=== PATIENT | male | born 1945 | race Caucasian/White ===

== ENCOUNTER → 2020-05-20 08:14 | Outpatient (REF) | payer MEDICARE, OTHER, SELFPAY ==
--- NOTE | 2020-05-20 08:30 | CA_ITS ---
Transthoracic Echocardiogram Patient (Last, First, Middle): Rich Camarillo R Gender: Male Date of : 1945 Age: 74 Procedure Date: 05/20/2020 Procedure Type: Transthoracic Echocardiogram Location: OP Height: 177.8 cm Weight: 76.2 kg BSA: 1.94 m2 Heart Rate: bpm BP: 140 / 80 mmHg Gripper Machine Operator: RALEIGH Valdez MD: Govind Palacios MD Cutter Apprentice Hand: Tito Reynolds MD Symptoms: I42.9 CMP I34.0 NON RHEUMATIC MV REGURG I27.20 PULMONARY REG Study Quality: Good ECG Rhythm: Sinus Conclusions: - 1. Severely enlarged right-sided chambers with RV systolic dysfunction 2. Low normal LV systolic function with impaired relaxation filling pattern 3. Mild mitral regurgitation 4. [id number] tricuspid regurgitation with moderately elevated right ventricular systolic pressure 5. Small loculated pericardial effusion near the left ventricle Findings Left Ventricle Normal left ventricular cavity size. There is normal left ventricular wall thickness. The left ventricular systolic function is low normal. The visually estimated ejection fraction is between 50-55%. There is a flattened septum in systole consistent with right ventricular pressure overload. Spectral Doppler is indicative of an impaired relaxation filling pattern. E/E prime ratio is between 8 and 15 consistent with indeterminate filling pressures. Right Ventricle Severely increased right ventricular cavity size. There is moderately decreased right ventricular systolic function. Atria The left atrium is likely dilated. Interatrial shunt cannot be excluded. The right atrium is severely dilated. Aortic Valve There is mild thickening of the aortic valve. There is no aortic valve stenosis. There is no aortic valve regurgitation. Mitral Valve Likely normal mitral valve structure and function. There is mild mitral valve regurgitation. There is no mitral valve stenosis. Pulmonic Valve The pulmonic valve was not well visualized. Tricuspid Valve Likely normal tricuspid valve structure and function. There is mild to moderate tricuspid valve regurgitation. Mildly elevated right atrial pressure. Moderate pulmonary hypertension is present. Great Vessels All visible segments of the aorta are normal in size. The pulmonary artery was not well visualized. Venous The inferior vena cava is mildly dilated and collapses less than 50% with inspiration. Pericardium/Pleural There is a small loculated pericardial effusion overlying the left ventricle. Prior Study Comparison Changes noted compared to prior study dated: 10/16/2019. right-sided chambers of further enlarged Measurements 2D Linear Measurements IVSd: 1.06 0.6-0.9/0.6-1.0 cm LVIDd: 4.27 3.9-5.3/4.2-5.9 cm LVIDd Index: 2.20 2.4-3.2/2.2-3.1 cm/m2 LVIDs: 3.04 2.0-3.6 cm LVPWd: 1.05 0.7-1.1 cm Ao Root: 3.50 2.1-3.5 cm LA Diam: 3.40 2.7-3.8/3.0-4.0 cm LAIDs Index: 1.75 1.5-2.3 cm/m2 LV Mass: 189.11 67-162/88-224 g LV Mass Index: 97.48 43-95/49-115 g/m2 LVOT Diam: 2.30 3.0+(-)1.3 cm 2D Systolic Function EF 4C: 55.70 >55% EF 2C: 51.00 >55% EF BiP: 52.00 >55% Mitral Valve MV Pk E: 0.75 MV PK A: 1.07 MV Decel Time: 395.00 E/A: 0.70 E'Lateral: 3.48 E'Medial: 3.26 E/E' Med: 23.10 E/E' Lat: 21.60 PHT: 116.00 MVA PHT: 1.90 Decel [place]: 1.91 Aortic Valve AoV Pk Abhilash: 1.19 AoV Mn Abhilash: 0.67 AoV VTI: 0.20 AoV Pk Grad: 6.00 Aov Mn Grad: 2.00 DANIELLE Cont.VTI: 3.23 LVOT LVOT Pk Abhilash: 0.63 LVOT Mn Abhilash: 0.37 LVOT VTI: 0.15 LVOT Pk Grad: 2.00 LVOT Mn Grad: 1.00 LVOT Diam: 2.30 LVOT Area: 4.15 Diastolic Function MV Pk E: 0.75 MV Pk A: 1.07 E/A: 0.70 E'Medial: 3.26 E/E' Med: 23.10 E' Laterial: 3.48 E/E' Lat: 21.60 Tricuspid Valve TR Pk Abhilash: 3.53 TR Pk Grad: 50.00 RA Press: 8.00 RVSP: 58.00 Great Vessels Aorta Ao Root-2D: 3.50 2.0-3.7 cm Ao Asc: 3.40 2.1-3.4 cm Ao Arch: 2.80 Updated in Other Vendor System with Status of Final Tito Reynolds MD electronically signed on 05/20/2020 3:15:58 PM with status of Final
== END ==
LOC: HO.CARD 08:14
PROVIDERS: PCP Internal Medicine; Visit Provider Internal Medicine
DX: I42.9 Cardiomyopathy, unspecified (principal); I34.0 Nonrheumatic mitral (valve) insufficiency; I36.1 Nonrheumatic tricuspid (valve) insufficiency; I27.20 Pulmonary hypertension, unspecified
CPT/HCPCS: 93306

== ENCOUNTER → 2020-06-09 09:25 | Outpatient (BNVA) | payer MEDICARE, OTHER, SELFPAY | PROVIDERS: PCP Internal Medicine; Visit Provider Internal Medicine | DX: I42.8 Other cardiomyopathies (principal); I50.812 Chronic right heart failure; I27.20 Pulmonary hypertension, unspecified | CPT/HCPCS: 99212 ==

== ENCOUNTER 2020-06-11 10:28 | Outpatient (REF) | payer MEDICARE, OTHER, SELFPAY ==
[2020-06-11 13:54] LABS: MANUAL DIFF FLAG NO
[2020-06-11 14:08] LABS: Basophils Percent Auto 0.4 % (0-2); Eosinophils Absolute Auto 0.1 X10*3/uL (0.0-0.4); Eosinophils Percent Auto 0.5 % (0-4); Hematocrit 51.7 % (42-52); Hemoglobin 16.8 g/dl (14.0-18.0); Imm Gran Abs Auto 0.06 X10*3/uL (0.00-0.03); Imm Gran Pct Auto 0.6 % (0.0-0.4); Lymphocytes Absolute Auto 2.2 X10*3/uL (1.2-4.9); Lymphocytes Percent Auto 21.7 % (20-40); Mean Corpuscular HGB Conc 32.5 g/dl (31.0-36.0); Mean Corpuscular Hemoglobin 34.6 pg (27.0-33.0); Mean Corpuscular Volume 106.4 fL (80-98); Mean Platelet Volume 10.5 fL (9.4-12.4); Monocytes Absolute Auto 0.8 X10*3/uL (0.1-1.2); Monocytes Percent Auto 7.3 % (2-11); Neutrophils Absolute Auto 7.1 X10*3/uL (2.0-8.3); Neutrophils Percent Auto 69.5 % (45-73); Platelet Count 124 X10*3/uL (160-400); Red Blood Count 4.86 X10*6/uL (4.60-5.80); Red Cell Distribution Width 14.7 % (11.0-16.0); White Blood Count 10.3 X10*3/uL (4.8-10.8)
[2020-06-11 14:37] LABS: Alanine Aminotransferase 24 U/L (0-40); Albumin Level 3.8 g/dL (3.5-5.0); Alkaline Phosphatase 93 U/L (39-117); Anion Gap 14 (12-20); Aspartate Amino Transferase 27 U/L (5-37); Bilirubin Total 1.6 mg/dL (0.0-1.0); Blood Urea Nitrogen 25 mg/dL (9-16); Calcium 8.5 mg/dL (8.4-10.2); Carbon Dioxide 27 mmol/L (22-29); Chloride 105 mmol/L (96-108); Estimated Glomerular Filt Rate > 60; Glucose Random 61 mg/dL (60-115); Potassium 4.2 mmol/l (3.3-5.1); Sodium 142 mmol/L (135-145); Total Protein 6.7 g/dL (6.5-8.0)
== END 2020-06-11 10:29 | disposition home or self-care (01) ==
LOC: HO.10HDL 10:28
PROVIDERS: Visit Provider Internal Medicine
DX: J44.9 Chronic obstructive pulmonary disease, unspecified (principal); I10 Essential (primary) hypertension; R60.9 Edema, unspecified
CPT/HCPCS: 36415; 80053; 85025

== ENCOUNTER 2020-07-10 09:41 | Outpatient (REF) | payer MEDICARE, OTHER, SELFPAY | END 2020-07-10 09:42 | disposition home or self-care (01) | LOC: HO.LNP 09:41 | PROVIDERS: PCP Internal Medicine; Visit Provider Hospitalist | DX: J44.9 Chronic obstructive pulmonary disease, unspecified (principal); J84.10 Pulmonary fibrosis, unspecified; J96.11 Chronic respiratory failure with hypoxia; I27.20 Pulmonary hypertension, unspecified; Z79.51 Long term (current) use of inhaled steroids; Z87.891 Personal history of nicotine dependence | CPT/HCPCS: 87070; 87205; 99212 ==

== ENCOUNTER 2020-07-20 09:07 | Outpatient (REF) | payer MEDICARE, OTHER, SELFPAY ==
--- NOTE | ~2020-07-20 | CT_ITS ---
EXAMINATION: CT CHEST WITHOUT CONTRAST CLINICAL INFORMATION: Pulmonary fibrosis COMPARISON: CT from 08/21/2018. Chest radiograph 01/30/2020. TECHNIQUE: Multidetector volumetric CT imaging of the chest was done. Axial MIP volume rendering provided. Sagittal and coronal reformatted images were obtained. This CT examination was performed using dose optimization techniques as appropriate, variously including the following: *Automated exposure control *Adjustment of mA and/or kV according to patient size (this includes techniques or standardized protocols for targeted exams where dose is matched to indication/reason for exam; i.e. extremities or head) *Use of iterative reconstruction technique DLP: 161 mGy-cm FINDINGS: INSPECTOR HANDBAG FRAMES: Prominent interstitial markings are noted throughout the lungs. LUNGS: The central airways are patent. There is moderate to severe centrilobular and paraseptal emphysema, greatest in the upper lobes. This is similar to prior. Bullous changes in the superior segments of bilateral lower lobes. There is mild bronchial wall thickening. No significant bronchiectasis. Honeycombing noted bilaterally, greatest at the lower lobes posteriorly. Subpleural reticulation is unchanged. No consolidation. There is a right upper lobe nodule measuring 0.8 x 0.4 cm on series 9 image 239. This is without change from prior. No mass. No pneumothorax. MEDIASTINUM: Enlarged heart. Mitral annular calcifications. Scattered coronary artery calcifications. No pericardial effusion. Mildly prominent mediastinal lymph nodes have normal morphology. There is a pretracheal node with short axis measurement of 1.3 cm on series 5 image 23, likely similar to prior given slight differences in technique. PLEURA: No pleural effusion. No pleural-based mass. AXILLA: No lymphadenopathy. UPPER ABDOMEN: Unremarkable. OSSEOUS STRUCTURES: No acute or suspicious osseous abnormality. Multilevel degenerative changes of the spine. L1 vertebral body compression deformity is unchanged from prior. CT/CT chest wo con IMPRESSION: No significant change from previous imaging. 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 Moderate to severe emphysema. Prominent pretracheal mediastinal lymph node, nonspecific but without significant change from prior. Unchanged pulmonary nodule in the right upper lobe with a mean dimension of 0.6 cm. Based on the Fleischner Society recommendations below, this does demonstrate 2 years of stability. This suggests benign etiology. According to the UPDATED 2017 Fleischner Society recommendations, the advised follow-up imaging for a single 6-8 mm solid nodule is: LOW RISK PATIENT: CT at 6-12 months, then consider CT at 18-24 months. HIGH RISK PATIENT: CT at 6-12 months, then at 18-24 months.
== END 2020-07-20 09:08 | disposition home or self-care (01) ==
LOC: HO.CT 09:07
PROVIDERS: Visit Provider Hospitalist
DX: J84.10 Pulmonary fibrosis, unspecified (principal); J96.11 Chronic respiratory failure with hypoxia; R63.4 Abnormal weight loss
CPT/HCPCS: 71250

== ENCOUNTER → 2020-08-07 10:28 | Outpatient (BNVA) | payer MEDICARE, OTHER, SELFPAY | PROVIDERS: PCP Internal Medicine; Visit Provider Hospitalist | DX: J41.8 Mixed simple and mucopurulent chronic bronchitis (principal); J84.10 Pulmonary fibrosis, unspecified; J96.11 Chronic respiratory failure with hypoxia; R63.4 Abnormal weight loss; J45.909 Unspecified asthma, uncomplicated; I27.20 Pulmonary hypertension, unspecified; I50.812 Chronic right heart failure; Z79.899 Other long term (current) drug therapy | CPT/HCPCS: 99212 ==

== ENCOUNTER 2020-10-08 10:32 | Outpatient (REF) | payer MEDICARE, OTHER, SELFPAY ==
[2020-10-08 11:40] LABS: MANUAL DIFF FLAG NO
[2020-10-08 11:51] LABS: Basophils Percent Auto 0.4 % (0-2); Eosinophils Absolute Auto 0.1 X10*3/uL (0.0-0.4); Eosinophils Percent Auto 0.6 % (0-4); Hematocrit 50.3 % (42-52); Hemoglobin 16.3 g/dl (14.0-18.0); Imm Gran Abs Auto 0.04 X10*3/uL (0.00-0.03); Imm Gran Pct Auto 0.5 % (0.0-0.4); Lymphocytes Percent Auto 24.4 % (20-40); Mean Corpuscular HGB Conc 32.4 g/dl (31.0-36.0); Mean Corpuscular Hemoglobin 34.6 pg (27.0-33.0); Mean Corpuscular Volume 106.8 fL (80-98); Mean Platelet Volume 10.1 fL (9.4-12.4); Monocytes Absolute Auto 0.5 X10*3/uL (0.1-1.2); Monocytes Percent Auto 6.5 % (2-11); Neutrophils Absolute Auto 5.6 X10*3/uL (2.0-8.3); Neutrophils Percent Auto 67.6 % (45-73); Platelet Count 150 X10*3/uL (160-400); Red Blood Count 4.71 X10*6/uL (4.60-5.80); Red Cell Distribution Width 14.4 % (11.0-16.0); White Blood Count 8.3 X10*3/uL (4.8-10.8)
[2020-10-08 12:09] LABS: Troponin-I High Sensitivity 13.3 ng/L (<3.5-35.0)
[2020-10-08 12:11] LABS: Alanine Aminotransferase 19 U/L (0-40); Albumin Level 4.1 g/dL (3.5-5.0); Alkaline Phosphatase 118 U/L (39-117); Anion Gap 15 (12-20); Aspartate Amino Transferase 25 U/L (5-37); Bilirubin Total 1.6 mg/dL (0.0-1.0); Blood Urea Nitrogen 23 mg/dL (9-16); Calcium 9.2 mg/dL (8.4-10.2); Carbon Dioxide 27 mmol/L (22-29); Chloride 103 mmol/L (96-108); Estimated Glomerular Filt Rate 58; Glucose Random 80 mg/dL (60-115); Potassium 4.1 mmol/L (3.3-5.1); Sodium 141 mmol/L (135-145); Total Protein 7.2 g/dL (6.5-8.0)
== END 2020-10-08 10:33 | disposition home or self-care (01) ==
LOC: HO.LAB 10:32
PROVIDERS: PCP Internal Medicine; Visit Provider Internal Medicine
DX: R00.2 Palpitations (principal); I10 Essential (primary) hypertension; J44.9 Chronic obstructive pulmonary disease, unspecified; D72.829 Elevated white blood cell count, unspecified
CPT/HCPCS: 36415; 80053; 84484; 85025

== ENCOUNTER → 2020-11-19 10:10 | Outpatient (BNVA) | payer MEDICARE, OTHER, SELFPAY | PROVIDERS: PCP Internal Medicine; Visit Provider Hospitalist | DX: J84.10 Pulmonary fibrosis, unspecified (principal); J96.11 Chronic respiratory failure with hypoxia; J41.8 Mixed simple and mucopurulent chronic bronchitis; I27.20 Pulmonary hypertension, unspecified; M79.89 Other specified soft tissue disorders | CPT/HCPCS: 99212 ==

== ENCOUNTER → 2020-11-23 08:10 | Outpatient (REF) | payer MEDICARE, OTHER, SELFPAY ==
--- NOTE | 2020-11-23 08:14 | CA_ITS ---
Transthoracic Echocardiogram Patient (Last, First, Middle): Rich Camarillo R Gender: Male Date of : 1945 Age: 74 Procedure Date: 11/23/2020 Procedure Type: Transthoracic Echocardiogram Location: OP Height: 177.8 cm Weight: 74.84 kg BSA: 1.92 m2 Heart Rate: bpm BP: 122 / 70 mmHg Humanities Instructor: RALEIGH Referring MD: Govind Palacios MD Symptoms: I50.812 - Chronic right heart failure Study Quality: Good ECG Rhythm: Sinus Conclusions: - The left ventricular systolic function is normal. The visually estimated ejection fraction is between 55-60%. - Severely increased right ventricular cavity size. There is moderately decreased right ventricular systolic function. - There is mild to moderate mitral valve regurgitation. - There is moderate tricuspid valve regurgitation. - Severe pulmonary hypertension is present. - Small localized effusion posterior to the left ventricle. Findings Left Ventricle Normal left ventricular cavity size. There is normal left ventricular wall thickness. The left ventricular systolic function is normal. The visually estimated ejection fraction is between 55-60%. There is no evidence of regional wall motion abnormalities. There is a flattened septum in systole consistent with right ventricular pressure overload. E/E prime ratio is >15, consistent with elevated filling pressures. Evidence suggests grade I (mild) diastolic dysfunction. Right Ventricle Severely increased right ventricular cavity size. There is moderately decreased right ventricular systolic function. Atria The left atrium is mildly dilated. The right atrium is severely dilated. Aortic Valve There is a normal trileaflet aortic valve. There is no aortic valve stenosis. There is trace (trivial) aortic valve regurgitation. Mitral Valve There is moderate posterior mitral annular calcification. There is mild posterior mitral leaflet prolapse. There is mild to moderate mitral valve regurgitation. There is no mitral valve stenosis. Pulmonic Valve The pulmonic valve was not well visualized. There is trace pulmonic valve regurgitation. Tricuspid Valve There is moderate tricuspid valve regurgitation. The right ventricular systolic pressure is 72 mmHg. Severe pulmonary hypertension is present. Great Vessels The aortic annulus, sinuses of valsalva, and asc aorta are normal in size. Venous The inferior vena cava is dilated and collapses less than 50% with inspiration. Pericardium/Pleural There are no definitive echocardiographic findings of tamponade physiology. Small localized effusion posterior to the left ventricle. Prior Study Comparison Changes noted compared to prior study dated: 05/20/2020. RVSP higher. Measurements 2D Linear Measurements IVSd: 1.02 0.6-0.9/0.6-1.0 cm LVIDd: 4.60 3.9-5.3/4.2-5.9 cm LVIDd Index: 2.40 2.4-3.2/2.2-3.1 cm/m2 LVIDs: 3.38 2.0-3.6 cm LVPWd: 1.06 0.7-1.1 cm Ao Root: 3.50 2.1-3.5 cm LA Diam: 4.00 2.7-3.8/3.0-4.0 cm LAIDs Index: 2.08 1.5-2.3 cm/m2 LV Mass: 208.77 67-162/88-224 g LV Mass Index: 108.74 43-95/49-115 g/m2 LVOT Diam: 2.00 3.0+(-)1.3 cm 2D Systolic Function EF 4C: 62.10 >55% EF 2C: 52.60 >55% EF BiP: 56.50 >55% Mitral Valve MV Pk E: 0.89 MV PK A: 1.06 MV Decel Time: 288.00 E/A: 0.80 E'Lateral: 4.35 E'Medial: 4.13 E/E' Med: 21.60 E/E' Lat: 20.60 PHT: 84.00 MVA PHT: 2.62 Decel [place]: 3.11 Aortic Valve AoV Pk Abhilash: 1.14 AoV Mn Abhilash: 0.74 AoV VTI: 0.21 AoV Pk Grad: 5.00 Aov Mn Grad: 3.00 DANIELLE Cont.VTI: 2.30 LVOT LVOT Pk Abhilash: 0.76 LVOT Mn Abhilash: 0.45 LVOT VTI: 0.16 LVOT Pk Grad: 2.00 LVOT Mn Grad: 1.00 LVOT Diam: 2.00 LVOT Area: 3.14 Diastolic Function MV Pk E: 0.89 MV Pk A: 1.06 E/A: 0.80 E'Medial: 4.13 E/E' Med: 21.60 E' Laterial: 4.35 E/E' Lat: 20.60 Tricuspid Valve TR Pk Abhilash: 3.76 TR Pk Grad: 57.00 RA Press: 15.00 RVSP: 72.00 Great Vessels Aorta Ao Root-2D: 3.50 2.0-3.7 cm Ao Asc: 3.10 2.1-3.4 cm Ao Arch: 2.80 Updated in Other Vendor System with Status of Final Govind Palacios MD electronically signed on 11/23/2020 11:18:49 AM with status of Final
== END ==
LOC: HO.CARD 08:10
PROVIDERS: PCP Internal Medicine; Visit Provider Internal Medicine
DX: I50.812 Chronic right heart failure (principal)
CPT/HCPCS: 93306

== ENCOUNTER → 2020-12-14 08:58 | Outpatient (BNVA) | payer MEDICARE, OTHER, SELFPAY | PROVIDERS: PCP Internal Medicine; Referring Provider Internal Medicine; Visit Provider Internal Medicine | DX: I42.8 Other cardiomyopathies (principal); J96.10 Chronic respiratory failure, unspecified whether with hypoxia or hypercapnia; I50.812 Chronic right heart failure; I27.20 Pulmonary hypertension, unspecified; J84.10 Pulmonary fibrosis, unspecified; F17.210 Nicotine dependence, cigarettes, uncomplicated; Z79.899 Other long term (current) drug therapy | CPT/HCPCS: 93005; 99212 ==

== ENCOUNTER 2021-03-29 11:48 | Inpatient (IN) | payer OTHER, SELFPAY ==
[2021-03-29] VITALS (7 sets, daily range): BP systolic 116–138; BP diastolic 77–82; PULSE 83–94; RESP 12–24; TEMP 36.7–36.8; O2SAT 76–93; BMI 25.2
--- NOTE | ~2021-03-29 | XR_ITS ---
EXAMINATION: XR CHEST CLINICAL INFORMATION: Dyspnea COMPARISON: Previous chest x-ray most recent January [address] July 2020 TECHNIQUE: Frontal view of the chest was obtained. FINDINGS: The cardiac silhouette is enlarged but stable. Hilar and mediastinal contours are unremarkable. There are increased interstitial markings. This does not appear appreciably changed from previous exams and is suggestive of interstitial lung disease. The lungs are otherwise clear. There is no pleural effusion or pneumothorax. There are degenerative changes of the spine. XR/XR chest 1V IMPRESSION: No evidence for acute disease in the chest. Stable enlargement of the cardiac silhouette. Stable increased interstitial markings suggestive of interstitial lung disease.
--- NOTE | 2021-03-29 12:28 | ECG_ITS ---
Test Reason : DYSPNEA Blood Pressure : / mmHG Vent. Rate : 078 BPM Atrial Rate : 078 BPM P-R Int : 176 ms QRS Dur : 126 ms QT Int : 424 ms P-R-T Axes : 039 000 -37 degrees QTc Int : 483 ms Normal sinus rhythm with sinus arrhythmia Incomplete right bundle branch block ST depression in Anterolateral leads Nonspecific T wave abnormality Inferior leads Abnormal ECG When compared with ECG of 15-OCT-2019 15:40, Aberrant conduction is no longer Present QRS duration has increased ST more depressed Anterolateral leads Referred By: Jose Alvarado Electronically Signed By:CAROLINA ELI MD
--- NOTE | 2021-03-29 12:30 | ED.SOB ---
HPI - SOB/Dyspnea General Chief Complaint: Dyspnea Stated Complaint: right sided heart failure , hypoximia Time Seen by Provider: 03/29/21 12:28 Source: patient Mode of arrival: ambulatory Limitations: no limitations History of Present Illness HPI Narrative: This is a 75 years old male brought in by the primary care physician he goes he was found to be hypoxic in the office a with oxygen saturation of 76% room air. Patient has a history of chronic heart failure with nonischemic cardiomyopathy and pulmonary hypertension he has been noticing increasing edema in the lower extremity, denies any chest pain MD elicited complaint: shortness of breath Pertinent past history: congestive heart failure Onset (ago): day(s) (2) Timing: constant Severity: moderate Exacerbating factors: nothing Relieving factors: nothing Known history of: other (CHF) Related Data Home Medications Medication Instructions Recorded Confirmed aspirin 81 mg tablet,delayed 81 mg PO DAILY 06/09/20 12/14/20 release (Adult Low Dose Aspirin) Previous Rx's Medication Instructions Recorded fluticasone furoate 200 1 inh INHALATION DAILY 30 Days #60 07/10/20 mcg-vilanterol 25 mcg/dose ea inhalation powder (Breo Ellipta) carvedilol 3.125 mg tablet 3.125 mg PO BID #180 tab 12/14/20 furosemide 40 mg tablet 40 mg PO DAILY #90 tab 12/14/20 albuterol sulfate 90 mcg/actuation 2 puff INHALATION Q4H PRN #8.5 g 03/29/21 aerosol inhaler Allergies Allergy/AdvReac Type Severity Reaction Status Date / Time No Known Allergies Allergy Verified 03/29/21 11:51 [No Known Allergies*] Review of Systems Review of Systems: Yes all other systems are reviewed and are negative Constitutional: Constitutional: Reports no additional constitutional complaints ENT: Reports system reviewed and no additional complaints, except as documented Cardiovascular: Cardiovascular: Reports no additional cardiovascular complaints Gastrointestinal: Gastrointestinal: Denies diarrhea and Denies nausea Genitourinary: Genitourinary: Denies urinary frequency Neurologic: Reports system reviewed and no additional complaints, except as documented Endocrine: Endocrine: Reports no additional endocrine complaints [facility] Past Medical History Attestation statement: The following information was validated with the patient. Medical History Chronic respiratory failure Chronic right heart failure COPD (chronic obstructive pulmonary disease) Emphysema lung Limb swelling NICM (nonischemic cardiomyopathy) Pulmonary fibrosis Pulmonary hypertension Surgical History History of inguinal hernia repair Family History Family History Father Cancer Mother Cancer Social History Social History Patient Tobacco Use Status: Former Tobacco user Cigarette Packs Per Day: 1 Cigarettes Per Day: 7 Years Smoked: 20 years Use of substances other than those prescribed or required for medical reasons: No Advance Directives: Yes Advance Directives Information Provided: No Advance Directives on File: No Physical Exam Vital Signs: Vital Signs: Last Vital Signs Temp 98.2 F 03/29/21 11:51 Pulse 86 03/29/21 12:25 Resp 12 03/29/21 12:25 BP 118/82 03/29/21 12:25 Pulse Ox 93 03/29/21 12:25 Body Mass Index 25.2 Const: General: cooperative and alert Nutritional Appearance: well nourished Orientation/consciousness: patient oriented x3 HENMT: Head: Yes normal to inspection Face and sinus: Yes normal facial exam Mouth: Normal oral and palatal mucosa present Neck: Neck: Yes normal visual inspection and Yes full ROM Chest: Chest palpation & inspection: normal inspection of the chest Resp: Effort & Inspection: normal respiratory effort Auscultation: rhonchi Cardio: Jugular venous distension: no JVD Rate: regular rate Rhythm: regular rhythm GI: Inspection: Yes normal to inspection Palpation (GI): Soft to palpation, not firm, nontender and no guarding Neuro: General: patient oriented x3 Extrem: Other: 3 plus edema MDM - SOB/Dyspnea Lab Data Result diagrams: 03/29/21 12:54 03/29/21 12:54 Labs: Lab Results 03/29/21 03/29/21 03/29/21 Range/Units 12:54 12:54 12:54 WBC 6.3 (4.8-10.8) X10*3/uL RBC 4.81 (4.60-5.80) X10*6/uL Hgb 17.4 (14.0-18.0) g/dl Hct 52.6 H (42.0-52.0) % MCV 109.4 H (80.0-98.0) fL MCH 36.2 H (27.0-33.0) pg MCHC 33.1 (31.0-36.0) g/dl RDW 17.1 H (11.0-16.0) % Plt Count 125 L (160-400) X10*3/uL MPV 9.9 (9.4-12.4) fL Immature Gran % (Auto) 0.3 (0.0-0.4) % Neut % (Auto) 72.3 (45-73) % Lymph % (Auto) 19.3 L (20-40) % Evangeline % (Auto) 7.3 (2-11) % Eos % (Auto) 0.5 (0-4) % Baso % (Auto) 0.3 (0-2) % Lymph # (Auto) 1.2 (1.2-4.9) X10*3/uL [place]eline # (Auto) 0.5 (0.1-1.2) X10*3/uL Eos # (Auto) 0.0 (0.0-0.4) X10*3/uL Baso # (Auto) 0.0 (0.0-0.2) X10*3/uL Abs Immat Gran (auto) 0.02 (0.00-0.03) X10*3/uL Absolute Neuts (auto) 4.5 (2.0-8.3) x10*3/uL Absolute Nucleated RBC 0.000 (0.0-0.012) X10*3/uL Nucleated RBC % (auto) 0.0 (0.0-0.2) /100WBC Sodium 142 (135-145) mmol/L Potassium 3.8 (3.3-5.1) mmol/L Chloride 104 (96-108) mmol/L Carbon Dioxide 24 (22-29) mmol/L Anion Gap 18 (12-20) BUN 24 H (9-16) mg/dL Creatinine 1.20 (0.5-1.4) mg/dL Estim Creat Clear Calc 56.6 Estimated GFR 59 Random Glucose 86 (60-115) mg/dL Calcium 8.8 (8.4-10.2) mg/dL Total Bilirubin 4.2 H (0.0-1.0) mg/dL AST 27 (5-37) U/L ALT 19 (0-40) U/L Alkaline Phosphatase 137 H (39-117) U/L Troponin I High Sens 11.3 (<3.5-35.0) ng/L B-Natriuretic Peptide (<100) pg/mL Total Protein 7.0 (6.5-8.0) g/dL Albumin 3.8 (3.5-5.0) g/dL COVID-19 (HILARY) (Negative) COVID-19 Clin Com 03/29/21 03/29/21 Range/Units 12:54 15:02 WBC (4.8-10.8) X10*3/uL RBC (4.60-5.80) X10*6/uL Hgb (14.0-18.0) g/dl Hct (42.0-52.0) % MCV (80.0-98.0) fL MCH (27.0-33.0) pg MCHC (31.0-36.0) g/dl RDW (11.0-16.0) % Plt Count (160-400) X10*3/uL MPV (9.4-12.4) fL Immature Gran % (Auto) (0.0-0.4) % Neut % (Auto) (45-73) % Lymph % (Auto) (20-40) % Ev[place]eline % (Auto) (2-11) % Eos % (Auto) (0-4) % Baso % (Auto) (0-2) % Lymph # (Auto) (1.2-4.9) X10*3/uL [place]eline # (Auto) (0.1-1.2) X10*3/uL Eos # (Auto) (0.0-0.4) X10*3/uL Baso # (Auto) (0.0-0.2) X10*3/uL Abs Immat Gran (auto) (0.00-0.03) X10*3/uL Absolute Neuts (auto) (2.0-8.3) x10*3/uL Absolute Nucleated RBC (0.0-0.012) X10*3/uL Nucleated RBC % (auto) (0.0-0.2) /100WBC Sodium (135-145) mmol/L Potassium (3.3-5.1) mmol/L Chloride (96-108) mmol/L Carbon Dioxide (22-29) mmol/L Anion Gap (12-20) BUN (9-16) mg/dL Creatinine (0.5-1.4) mg/dL Estim Creat Clear Calc Estimated GFR Random Glucose (60-115) mg/dL Calcium (8.4-10.2) mg/dL Total Bilirubin (0.0-1.0) mg/dL AST (5-37) U/L ALT (0-40) U/L Alkaline Phosphatase (39-117) U/L Troponin I High Sens (<3.5-35.0) ng/L B-Natriuretic Peptide 2396 H (<100) pg/mL Total Protein (6.5-8.0) g/dL Albumin (3.5-5.0) g/dL COVID-19 (HILARY) Negative (Negative) COVID-19 Clin Com See Note ECG Data Attestation: I personally reviewed and interpreted this ECG as follows: Prior ECG tracings: available for review Pacemaker model: NSR 78 no ischemic changes Discharge Plan Discharge Clinical Impression: MOORE (dyspnea on exertion), Edema leg Patient Disposition: Admitted As Inpatient
--- NOTE | 2021-03-29 12:45 | PC.NURSE ---
pt c/o both increased sob and BLE swelling for a few days now. he has history of COPD and CHF, pt is a smoker, he reports he has cut down in an attempt to quit. he reports he was at his PCP's office to be evaluated for the sob and swelling and his physician told him to come to the ed for further evaluation. pt states he wears 4L N/C at home but he has been doing well without his oxygen for a while then recently he noticed he has been needing it more often. He also states his O2 sat was in the 80s at home. pt currently satting 90-94% on 4L N/C. pt states he is on Lasix and has been compliant with taking med, he did take his dose this morning. pt alert and oriented. no respiratory distress noted. pt' at bedside.
[2021-03-29 13:00] LABS: MANUAL DIFF FLAG NO
[2021-03-29 13:02] LABS: Basophils Percent Auto 0.3 % (0-2); Eosinophils Percent Auto 0.5 % (0-4); Hematocrit 52.6 % (42.0-52.0); Hemoglobin 17.4 g/dl (14.0-18.0); Imm Gran Abs Auto 0.02 X10*3/uL (0.00-0.03); Imm Gran Pct Auto 0.3 % (0.0-0.4); Lymphocytes Absolute Auto 1.2 X10*3/uL (1.2-4.9); Lymphocytes Percent Auto 19.3 % (20-40); Mean Corpuscular HGB Conc 33.1 g/dl (31.0-36.0); Mean Corpuscular Hemoglobin 36.2 pg (27.0-33.0); Mean Corpuscular Volume 109.4 fL (80.0-98.0); Mean Platelet Volume 9.9 fL (9.4-12.4); Monocytes Absolute Auto 0.5 X10*3/uL (0.1-1.2); Monocytes Percent Auto 7.3 % (2-11); Neutrophils Absolute Auto 4.5 x10*3/uL (2.0-8.3); Neutrophils Percent Auto 72.3 % (45-73); Platelet Count 125 X10*3/uL (160-400); Red Blood Count 4.81 X10*6/uL (4.60-5.80); Red Cell Distribution Width 17.1 % (11.0-16.0); White Blood Count 6.3 X10*3/uL (4.8-10.8)
[2021-03-29 13:21] LABS: Alanine Aminotransferase 19 U/L (0-40); Albumin Level 3.8 g/dL (3.5-5.0); Alkaline Phosphatase 137 U/L (39-117); Anion Gap 18 (12-20); Aspartate Amino Transferase 27 U/L (5-37); Bilirubin Total 4.2 mg/dL (0.0-1.0); Blood Urea Nitrogen 24 mg/dL (9-16); Calcium 8.8 mg/dL (8.4-10.2); Carbon Dioxide 24 mmol/L (22-29); Chloride 104 mmol/L (96-108); Creatinine Clr Calc Pharmacy 56.6; Estimated Glomerular Filt Rate 59; Glucose Random 86 mg/dL (60-115); Potassium 3.8 mmol/L (3.3-5.1); Sodium 142 mmol/L (135-145)
[2021-03-29 13:26] LABS: B Type Natriuretic Peptide 2396 pg/mL (<100); Troponin-I High Sensitivity 11.3 ng/L (<3.5-35.0)
[2021-03-29] MEDS: Furosemide 100 MG/10 ML VIAL 60 MG IVPUSH (14:41)
--- NOTE | 2021-03-29 15:13 | PM.IMHP ---
History of Present Illness Date of Service: 03/29/21 75yo M with R-sided CHF/pulmonary HTN from COPD and pulmonary fibrosis sent in by his primary care doctor with RA SaO2 76%. He's noted worsening dyspnea and lower extremity edema over the last few days. He's had some cough. No fever or chills. No chest pain. He's been fully vaccinated against COVID-19 with the Moderna vaccine. He's on 40 mg of furosemide a day. He has home oxygen but uses it only rarely. He last saw his human resources specialist, Dr Palacios, on 12/14/20. Last TTE 11/23/20 showed: - The left ventricular systolic function is normal.? The visually estimated ejection fraction is between 55-60%. ? - Severely increased right ventricular cavity size.? There is? ? moderately decreased right ventricular systolic function.? - There is mild to moderate mitral valve regurgitation.? - There is moderate tricuspid valve regurgitation. ? - Severe pulmonary hypertension is present.? - Small localized effusion posterior to the left ventricle.? He [place] Vicente [place] [facility]; last time was 11/19/20. In the ED, he was hypoxic with RA SaO2 76%. BNP was elevated to 2396. CXR showed interstitial markings. He was given 60 mg of IV furosemide. Review of Systems Review of Systems: Yes all other systems are reviewed and are negative [facility] Medical History Chronic respiratory failure Chronic right heart failure COPD (chronic obstructive pulmonary disease) Emphysema lung Limb swelling NICM (nonischemic cardiomyopathy) Pulmonary fibrosis Pulmonary hypertension Family History Father Cancer Mother Cancer Surgical History History of inguinal hernia repair Social History Patient Tobacco Use Status: Former Tobacco user Cigarette Packs Per Day: 1 Cigarettes Per Day: 7 Years Smoked: 20 years Use of substances other than those prescribed or required for medical reasons: No Advance Directives: Yes Advance Directives Information Provided: No Advance Directives on File: No Meds Allergies Allergy/AdvReac Type Severity Reaction Status Date / Time No Known Allergies Allergy Verified 03/29/21 11:51 [No Known Allergies*] Active Medications: Current Medications Pharmacy Consult (Consult Rx Perform Med Rec) 1 each MISCELLANE ONCE PRN PRN Reason: Consult order Home Medications Medication Instructions Recorded Confirmed Last Taken Type aspirin 81 mg tablet,delayed 81 mg PO DAILY 06/09/20 12/14/20 Unknown History release (Adult Low Dose Aspirin) Physical Exam Vital Signs and Narrative: Vital Signs: Last Vital Signs Temp 98.2 F 03/29/21 11:51 Pulse 86 03/29/21 12:25 Resp 12 03/29/21 12:25 BP 118/82 03/29/21 12:25 Pulse Ox 93 03/29/21 12:25 Body Mass Index 25.2 Gen: in no acute distress HEENT: sclera anicteric, moist mucus membranes Neck: supple, JVD present Lungs: diminihsed bilaterally with some wheezing Heart: regular rate and rhythm, no murmurs Abd: soft, non-tender, non-distended Ext: 2+ bilateral leg edema Skin: warm/well-perfused Neuro: alert and oriented x3, no focal findings Psych: appropriate affect Results Labs CBC and Chem 7: 03/29/21 12:54 03/29/21 12:54 Labs: Laboratory Results - last 24 hr 03/29/21 03/29/21 03/29/21 12:54 12:54 12:54 MCV 109.4 H MCH 36.2 H MCHC 33.1 RDW 17.1 H Plt Count 125 L MPV 9.9 Immature Gran % (Auto) 0.3 Neut % (Auto) 72.3 Lymph % (Auto) 19.3 L Monroe % (Auto) 7.3 Eos % (Auto) 0.5 Baso % (Auto) 0.3 Lymph # (Auto) 1.2 Monroe # (Auto) 0.5 Eos # (Auto) 0.0 Baso # (Auto) 0.0 Abs Immat Gran (auto) 0.02 Absolute Neuts (auto) 4.5 Absolute Nucleated RBC 0.000 Nucleated RBC % (auto) 0.0 Anion Gap 18 Estim Creat Clear Calc 56.6 Estimated GFR 59 Random Glucose 86 Calcium 8.8 Total Bilirubin 4.2 H AST 27 ALT 19 Alkaline Phosphatase 137 H Troponin I High Sens 11.3 B-Natriuretic Peptide Total Protein 7.0 Albumin 3.8 03/29/21 12:54 MCV MCH MCHC RDW Plt Count MPV Immature Gran % (Auto) Neut % (Auto) Lymph % (Auto) Monroe % (Auto) Eos % (Auto) Baso % (Auto) Lymph # (Auto) Monroe # (Auto) Eos # (Auto) Baso # (Auto) Abs Immat Gran (auto) Absolute Neuts (auto) Absolute Nucleated RBC Nucleated RBC % (auto) Anion Gap Estim Creat Clear Calc Estimated GFR Random Glucose Calcium Total Bilirubin AST ALT Alkaline Phosphatase Troponin I High Sens B-Natriuretic Peptide 2396 H Total Protein Albumin ITS Impressions Chest X-Ray 03/29/21 12:28 IMPRESSION: No evidence for acute disease in the chest. Stable enlargement of the cardiac silhouette. Stable increased interstitial markings suggestive of interstitial lung disease. Imaging Radiologist's Impressions: Impressions Chest X-Ray 03/29/21 12:28 IMPRESSION: No evidence for acute disease in the chest. Stable enlargement of the cardiac silhouette. Stable increased interstitial markings suggestive of interstitial lung disease. Assessment and Plan (1) Acute on chronic right-sided heart failure: Status: Acute 75yo M with R-sided CHF/pHTN secondary to COPD and pulmonary fibrosis presenting with hypoxia from CHF exacerbation # R-sided CHF exacerbation - admit to telemetry, diurese with IV furosemide, trend BNP + monitor I/O, BMP, Mg - Cardiology consultation - continue carvedilol # acute/chronic hypoxic respiratory failure - supplemental O2, wean as tolerated # COPD exacerbation - will give IV steroids - continue Breo, nebulized SAIMA/SHAN - Pulmonology consult # VTE ppx - LMWH # code - FULL Quality Stroke Does the patient have a stroke diagnosis?: No VTE Prior VTE?: No VTE Risk Level:: Medical - moderate - high VTE Device Contraindication: N/A - Device Ordered VTE Drug Contraindication: N/A - Med Ordered
[2021-03-29 15:34] LABS: COVID-19 Test Negative (Negative)
--- NOTE | 2021-03-29 16:30 | PHA.MEDREC ---
Pharmacy Consult ? Medication Reconciliation Pharmacy has completed the medication reconciliation. Patient used to be on Breo but hasn't been taking it. Last filled in jun
[2021-03-29] MEDS: methylPREDNISolone Sod Succ 40 MG/ML VIAL IVPUSH (16:55)
[2021-03-29] MEDS: Furosemide 40 MG/4 ML VIAL IVPUSH (16:55)
[2021-03-29] MEDS: Enoxaparin Sodium 40 MG/0.4 ML SYRINGE SUBCUT (16:59)
[2021-03-29] MEDS: 0.9 % Sodium Chloride Flush 3 ML SYRINGE IVFLUSH (17:00)
[2021-03-29 17:09] LABS: ABG HCO3 24 mmol/L (22-26); ABG pCO2 31 mmHg (32-45); ABG pH 7.49 (7.35-7.45); ABG pO2 55 mmHg (83-108)
[2021-03-29 17:10] LABS: ABG Refer to POC result
[2021-03-29] MEDS: Albuterol/Iprat 2.5/0.5MG 3 ML AMPUL.NEB INHALE (19:46)
--- NOTE | 2021-03-29 19:50 | PC.NURSE ---
pt a&o, no increase of sob or chest pain. pt sitting upright in bed talking in full sentences. respiratiory into give breathing treatment awaiting bed assignment.
--- NOTE | 2021-03-29 19:51 | PC.NURSE ---
pt has 2000 urine output.
[2021-03-30] VITALS (9 sets, daily range): BP systolic 100–124; BP diastolic 57–85; PULSE 67–116; RESP 16–20; TEMP 36.4–37; O2SAT 90–98
[2021-03-30] MEDS: 0.9 % Sodium Chloride Flush 3 ML SYRINGE IVFLUSH ×4 (00:16→21:09)
--- NOTE | 2021-03-30 00:17 | PC.NURSE ---
Pt a&o, no sob or chest pain. pt extremity upset in regards to not having a room assigned to for inpatient, educated on process. This specifications writer offered recliner and a warm blanket. refused. Notified charge nurse of and patient concerns. Will continue to monitor.
--- NOTE | 2021-03-30 00:40 | PC.NURSE ---
pt was able to get a room 368-report given to nurse Juan. Will transfer to unit.
[2021-03-30] MEDS: methylPREDNISolone Sod Succ 40 MG/ML VIAL IVPUSH (04:35)
[2021-03-30 05:45] LABS: Anion Gap 12 (12-20); Blood Urea Nitrogen 23 mg/dL (9-16); Calcium 8.2 mg/dL (8.4-10.2); Carbon Dioxide 28 mmol/L (22-29); Chloride 103 mmol/L (96-108); Estimated Glomerular Filt Rate > 60; Glucose Random 157 mg/dL (60-115); Magnesium 2.2 mg/dL (1.6-2.6); Potassium 3.6 mmol/L (3.3-5.1); Sodium 139 mmol/L (135-145)
[2021-03-30 05:50] LABS: B Type Natriuretic Peptide 3097 pg/mL (<100)
[2021-03-30] MEDS: Albuterol/Iprat 2.5/0.5MG 3 ML AMPUL.NEB INHALE ×2 (07:33→20:32)
[2021-03-30] MEDS: Furosemide 40 MG/4 ML VIAL IVPUSH ×2 (09:16→16:34)
--- NOTE | 2021-03-30 11:49 | PM.CNPUL ---
History of Present Illness History of Present Illness Consult date: 03/30/21 Requesting physician: Candis Ohara Chief complaint: Right sided CHF Hypoxia Narrative: 75-year-old gentleman recent 40+ pack-year smoker, with underlying history of advanced COPD with some pulmonary fibrosis, on supplemental oxygen, pulmonary hypertension secondary to intrinsic lung disease, patient of Dr. Vicente, with known cor pulmonale admitted on 03/29/2021 with slowly worsening shortness of breath secondary to exacerbation of underlying cor pulmonale. Patient has been started on diuresis with significant improvement in his hypoxia and lower extremity edema. Review of Systems Constitutional: Constitutional: Denies daytime sleepiness, Denies excessive sweating, Denies fatigue, Denies fever(s), Denies lethargy, Denies malaise, Denies night sweats, Denies snoring and Denies weight loss Eyes: Eyes: Denies blurry vision and Denies itchy eyes ENT: Denies nasal congestion, Denies post nasal drip, Denies sinus pain, Denies sinus pressure and Denies other ( Thrush) Cardiovascular: Cardiovascular: Denies chest pain, Reports pedal edema, Reports dyspnea, Reports orthopnea and Denies paroxysmal nocturnal dyspnea Respiratory: Respiratory: Denies cough, Denies hemoptysis, Denies excessive phlegm production, Reports dyspnea, Denies snoring and Denies wheezing Gastrointestinal: Gastrointestinal: Denies abdominal pain and Denies heartburn Musculoskeletal: Musculoskeletal: Denies myalgias, Denies arthralgias and Denies joint swelling Integumentary/Breasts: Skin/Breast: Denies rash Neurologic: Denies memory loss and Denies seizure-like activity Psychiatric: Psychiatric: Denies abnormal sleep pattern, Denies anxiety and Denies memory loss Endocrine: Endocrine: Denies excessive sweating, Denies fatigue and Denies heat intolerance Hematologic/Lymphatic: Hematologic/Lymphatic: Denies easy bruising Allergic/Immunologic: Allergic/Immunologic: Denies itchy eyes, Denies seasonal rhinorrhea and Denies wheezing PMFSH Past Medical History Medical History Chronic respiratory failure Chronic right heart failure COPD (chronic obstructive pulmonary disease) Emphysema lung Limb swelling NICM (nonischemic cardiomyopathy) Pulmonary fibrosis Pulmonary hypertension Family History Family History Father Cancer Mother Cancer Surgical History Surgical History History of inguinal hernia repair Social History Social History Household Members: Spouse Housing: House Patient Tobacco Use Status: Former Tobacco user Cigarette Packs Per Day: 1 Cigarettes Per Day: 7 Years Smoked: 20 years Use of substances other than those prescribed or required for medical reasons: No Currently Displaying Signs/Symptoms of Drug Intoxication Withdrawal: No Have you been hit, kicked, punched, or otherwise hurt by someone within the past year? If so, by whom?: No Do you feel safe in your current relationship?: Yes Is there a partner from a previous relationship who is making you feel unsafe now?: No Are you made to feel afraid or neglected: No Advance Directives: Yes Advance Directives Information Provided: No Advance Directives on File: No Advance Directives Date on File: 03/30/21 Do you have thoughts of harming others: None Do you have a plan to hurt others: No Plan Recently lost weight without trying: No Eating poorly because of decreased appetite: No Nutrition Risks: No Nutritional Risk Poor oral hygiene: No Meds Allergies Allergy/AdvReac Type Severity Reaction Status Date / Time No Known Allergies Allergy Verified 03/29/21 11:51 [No Known Allergies*] Active Medications: Current Medications Acetaminophen (Acetaminophen 325 Mg Tablet) 650 mg PO Q6H PRN PRN Reason: Pain, Mild (Pain Scale 1-3) Albuterol Sulfate (Albuterol Sulfate (0.083%) 2.5 Mg/3 Ml Vial.Neb) 2.5 mg INHALE Q2H PRN PRN Reason: Shortness of Breath/Wheezing Albuterol/Ipratropium (Albuterol/Iprat 2.5/0.5mg 3 Ml Ampul.Neb) 3 ml INHALE RQ4H WHILE AWAKE [facility] Last Admin: 03/30/21 11:33 Dose: Not Given Documented by: Enoxaparin Sodium (Enoxaparin Sodium 40 Mg/0.4 Ml Syringe) 40 mg SUBCUT Q24H [facility] Last Admin: 03/29/21 16:59 Dose: 40 mg Documented by: Furosemide (Furosemide 40 Mg/4 Ml Vial) 40 mg IVPUSH BID@0900,1800 [facility]; Protocol Last Admin: 03/30/21 09:16 Dose: 40 mg Documented by: Methylprednisolone Sodium Succinate (Methylprednisolone Sod Succ 40 Mg/Ml Vial) 40 mg IVPUSH Q12H [facility] Last Admin: 03/30/21 04:35 Dose: 40 mg Documented by: Ondansetron HCl (Ondansetron Hcl 4 Mg/2 Ml Vial) 4 mg IVPUSH Q8H PRN PRN Reason: Nausea and Vomiting Pharmacy Consult (Consult Rx Perform Med Rec) 1 each MISCELLANE ONCE PRN PRN Reason: Consult order Sodium Chloride (0.9 % Sodium Chloride Flush 3 Ml Syringe) 3 ml IVFLUSH QSHIFT [facility] Last Admin: 03/30/21 09:17 Dose: 3 ml Documented by: Home Medications Medication Instructions Recorded Confirmed Last Taken Type aspirin 81 mg tablet,delayed 81 mg PO DAILY 06/09/20 03/29/21 03/29/21 History release (Adult Low Dose Aspirin) Physical Exam Vital Signs: Vital Signs: Last Vital Signs Temp 97.6 F 03/30/21 07:13 Pulse 95 03/30/21 07:34 Resp 16 03/30/21 07:13 BP 113/85 03/30/21 07:13 Pulse Ox 91 L 03/30/21 07:13 Body Mass Index 25.2 Const: General: no acute distress, alert and awake Nutritional Appearance: not obese Orientation/consciousness: Other orientation findings ( oriented) HENMT: Head: Yes atraumatic Mouth: no other ( thrush) Throat: No postnasal drainage Eyes: General: appearance normal, both eyes and all related structures Sclerae: sclerae normal EOM: EOMs intact bilaterally Neck: Neck: Yes no lymphadenopathy, Yes trachea midline and Yes supple Lymphatic: no lymphadenopathy noted Resp: Effort & Inspection: normal respiratory effort and no respiratory distress Auscultation: crackles (Diffuse bilateral) Cardio: Rate: regular rate Rhythm: regular rhythm Heart sounds: no gallops, no murmurs and no rubs GI: Palpation (GI): Soft to palpation and Other GI palpation findings present ( Nontender) Auscultation: normal bowel sounds Skin: General skin exam: other ( warm) Rashes: no rashes Extrem: General: No clubbing, No cyanosis and Yes pedal edema (2+ bilateral) Results Laboratory Findings CBC and BMP: 11/15/21 12:54 03/30/21 05:13 Abnormal lab findings: Abnormal Labs 03/29/21 03/29/21 03/29/21 12:54 12:54 12:54 Hct 52.6 H MCV 109.4 H MCH 36.2 H RDW 17.1 H Plt Count 125 L Lymph % (Auto) 19.3 L ABG pH at Pt Temp ABG pCO2 at Pt Temp ABG pO2 at Pt Temp BUN 24 H Random Glucose Calcium Total Bilirubin 4.2 H Alkaline Phosphatase 137 H B-Natriuretic Peptide 2396 H 03/29/21 03/30/21 03/30/21 17:01 05:13 05:13 Hct MCV MCH RDW Plt Count Lymph % (Auto) ABG pH at Pt Temp 7.49 H ABG pCO2 at Pt Temp 31 L ABG pO2 at Pt Temp 55 L BUN 23 H Random Glucose 157 H D Calcium 8.2 L D Total Bilirubin Alkaline Phosphatase B-Natriuretic Peptide 3097 H Assessment and Plan (1) Pulmonary hypertension: Status: Acute (2) COPD (chronic obstructive pulmonary disease): Qualifiers: COPD type: chronic bronchitis Chronic bronchitis type: mixed simple and mucopurulent Qualified Code(s): J41.8 - Mixed simple and mucopurulent chronic bronchitis Status: Acute (3) Pulmonary fibrosis: Status: Acute (4) Chronic respiratory failure: Qualifiers: Respiratory failure complication: hypoxia Qualified Code(s): J96.11 - Chronic respiratory failure with hypoxia Status: Acute (5) Cor pulmonale: Status: Acute Impression: 75-year-old gentleman with underlying cor pulmonale secondary to advanced COPD/pulmonary fibrosis supplemental oxygen dependent, pulmonary hypertension secondary to intrinsic lung disease admitted with worsening dyspnea secondary to worsening cor pulmonale, now improving with diuresis. Recommendation: Agree with further diuresis. Procedures Date of Service Date of Service: 03/30/21
--- NOTE | 2021-03-30 12:49 | MHC.CM.PN ---
Addendum entered by Key Schafer 03/30/21 14:23: SPOKE WITH SARAH FROM [facility] , SHE INFORMED ME THAT SHE FOLLOWS ALL OF DR MARKS PAtient s and was notified about patient inpatients admission, she lizzette touch base with patient once he is discharged and will follow up with him regarding medications , management of chronic disease, help with follow up appointments with pcp and specialists. and to inform patient that if he is not feeling well which he can call them and give clinical signs/symptoms and get a quicker response Original Note: nurse senior case manager note electronic medical record reviewed along with case discussed on multiple disciplinary rounds, met with patient reviewed the medicare imm with him with his understanding and original left at bedside for further review, patient live swith his , both he and his continue to drive a car, , he reported that he has a history of cardiac and pulmonary problems , he uses home oxygen (concentrator and portable) from [employer] he was not on continous oxygen at home as he is ion it here 4.5 liters via nasal canula. he is followed by choke reamer dr tsai (last seen in november 13) per documentation copd, emphysema of the lung pulmonary fibrosis and pulmonary hypertension, he also if followed by cardiologis dr guadarrama for documentated chronic right heart failure nonischemic cardiomyopathy, ( (lasrt seen november 2020). patient reports tjhat he checks his blood pressure and pulse, respirations and o2 saturations qd. he was aware of his medications and what they were used to treat , he does not have a medical alert device and is not interested in one) he is not interested in having the vna or community nurse navigator check in with him post hospitla discharge (he reported that he had them in the past and does not want them) he did verbalize [place] [facility] [place] -THIS INFORMATION WAS GIVEN TO HIM , HE WOULD NEED REFERRAL FROM HIS PCP OR PULMONARY PHYSICIAN AND ARE USUALLY NOT SEEN UNTIL 2 WEEKS POST DISCHARGE . PATIENT REPORTS HE HAS A HEALTH CARE PROXY (NOT HERE ON FILE ) REQUESTED COPY BE BROUGHT IN MY HIS WHEN VISITING TO HAVE ON FILE PATIENT REPORTED THAT HE DID RECIVE THE MODERMA VACCINES 2X IN THE SUMMER MONTHS , BUT COULD NOT REMBER WHICH MONTHS , 9he will have his check the datyes as his wLLET IS AT HOME, DICHARGE PLAN HOME WITH PATIENT IS NOT INTERESTED IN ANY REFERRALS TO THE VNA OR NURSE NAVIGATOR PATIENT IS INTERESTED IN [facility], AND HE REPORTED HE HAS TRANSPORTATION BY HIS . PCP TORIE AGUIAR PATIENT INSTRUCTED TO CALL FOR POST HOSPITLA DISCHARGE FOLLOW UP
--- NOTE | 2021-03-30 15:06 | P.PNIM_ITS ---
Subjective Subjective Date of Service: 03/30/21 Interval History: CHF /COPD Review of Systems Shortness of breath seems improving, leg swelling also improving Denies any chest pain or abdominal pain or nausea vomiting. Physical Exam Vital Signs: Vital Signs: Last Vital Signs Temp 97.6 F 03/30/21 14:59 Pulse 91 03/30/21 14:59 Resp 18 03/30/21 14:59 BP 111/57 L 03/30/21 14:59 Pulse Ox 98 03/30/21 14:59 Body Mass Index 25.2 Gen: in no acute distress HEENT: sclera anicteric, moist mucus membranes Neck: supple, JVD present Lungs: air entry improving, no rales Heart: regular rate and rhythm, no murmurs Abd: soft, non-tender, non-distended Ext: 2+ bilateral leg edema Skin: warm/well-perfused Neuro: alert and oriented x3, no focal findings Psych: appropriate affect Objective Data Active Medications Acetaminophen (Acetaminophen 325 Mg Tablet) 650 mg PO Q6H PRN PRN Reason: Pain, Mild (Pain Scale 1-3) Albuterol Sulfate (Albuterol Sulfate (0.083%) 2.5 Mg/3 Ml Vial.Neb) 2.5 mg INHALE Q2H PRN PRN Reason: Shortness of Breath/Wheezing Albuterol/Ipratropium (Albuterol/Iprat 2.5/0.5mg 3 Ml Ampul.Neb) 3 ml INHALE RQ4H WHILE AWAKE [facility] Last Admin: 03/30/21 14:57 Dose: Not Given Documented by: ARNOL Non-Admin Reason: Patient Refused Enoxaparin Sodium (Enoxaparin Sodium 40 Mg/0.4 Ml Syringe) 40 mg SUBCUT Q24H [facility] Last Admin: 03/29/21 16:59 Dose: 40 mg Documented by: GUERRERO Fluticasone/Vilanterol (Fluticasone/Vilanterol 200/25 Blst.W.Dev) 1 puff INHALE RDAILY [facility] Furosemide (Furosemide 40 Mg/4 Ml Vial) 40 mg IVPUSH BID@0900,1800 [facility]; Protocol Last Admin: 03/30/21 09:16 Dose: 40 mg Documented by: HONORIO Ondansetron HCl (Ondansetron Hcl 4 Mg/2 Ml Vial) 4 mg IVPUSH Q8H PRN PRN Reason: Nausea and Vomiting Pharmacy Consult (Consult Rx Perform Med Rec) 1 each MISCELLANE ONCE PRN PRN Reason: Consult order Sodium Chloride (0.9 % Sodium Chloride Flush 3 Ml Syringe) 3 ml IVFLUSH QSHIFT [facility] Last Admin: 03/30/21 09:17 Dose: 3 ml [facility]ed [facility]: [facility] Labs CBC & Chem 7: 03/29/21 12:54 03/30/21 05:13 Labs: Laboratory Results - last 24 hr 03/29/21 03/29/21 03/30/21 15:02 17:01 05:13 O2 Saturation 82.0 ABG pH at Pt Temp 7.49 H ABG pCO2 at Pt Temp 31 L ABG pO2 at Pt Temp 55 L ABG HCO3 24 ABG Base Excess (Actual) 2.0 Anion Gap 12 Estim Creat Clear Calc 64.0 Estimated GFR > 60 Random Glucose 157 H D Calcium 8.2 L D Magnesium 2.2 B-Natriuretic Peptide COVID-19 ([facility]) Negative COVID-19 Clin Com See Note 03/30/21 05:13 O2 Saturation ABG pH at Pt Temp ABG pCO2 at Pt Temp ABG pO2 at Pt Temp ABG HCO3 ABG Base Excess (Actual) Anion Gap Estim Creat Clear Calc Estimated GFR Random Glucose Calcium Magnesium B-Natriuretic Peptide 3097 H COVID-19 ([facility]) COVID-19 Clin Com Assessment and Plan (1) Cor pulmonale: Status: Acute (2) Acute on chronic right-sided heart failure: Status: Acute (3) COPD (chronic obstructive pulmonary disease): Status: Acute Assessment and Plan: 75yo M with R-sided CHF/pHTN secondary to COPD and pulmonary fibrosis presenting with hypoxia from CHF exacerbation 1.R-sided CHF exacerbation - admit to telemetry, diurese with IV furosemide, trend BNP + monitor I/O, BMP, Mg - Cardiology consultation - continue carvedilol 2.acute/chronic hypoxic respiratory failure - supplemental O2, wean as tolerated 3. COPD exacerbation - will give IV steroids - continue Breo, nebulized SAIMA/SHAN - Pulmonology consult 4. VTE ppx - LMWH Quality Stroke Does the patient have a stroke diagnosis?: No VTE Prior VTE?: No VTE Risk Level:: Medical - moderate - high VTE Device Contraindication: N/A - Device Ordered VTE Drug Contraindication: N/A - Med Ordered
--- NOTE | 2021-03-30 15:34 | P.CONCA_ITS ---
History of Present Illness History of Present Illness Date of Service: 03/30/21 Requesting physician: Dominga Mckinnon Chief complaint: Right sided CHF Hypoxia Narrative: 75-year-old gentleman with background history of COPD, interstitial lung disease and cor pulmonale for which he has been following with Dr. Palacios. He is now presenting with shortness of breath and hypoxia. Volume overloaded and also in COPD exacerbation. He has been given IV steroids at this point. Clinically he is improving. He was given IV diuretics and has been diuresing and feeling better. He does not have any significant leg edema at this point. Denying any chest discomfort shortness of breath. He has been intermittently using oxygen at home. [facility] Past Medical History Medical History Chronic respiratory failure Chronic right heart failure COPD (chronic obstructive pulmonary disease) Emphysema lung Limb swelling NICM (nonischemic cardiomyopathy) Pulmonary fibrosis Pulmonary hypertension Family History Family History Father Cancer Mother Cancer Surgical History Surgical History History of inguinal hernia repair Social History Social History Household Members: Spouse Housing: House Patient Tobacco Use Status: Former Tobacco user Cigarette Packs Per Day: 1 Cigarettes Per Day: 7 Years Smoked: 20 years Use of substances other than those prescribed or required for medical reasons: No Currently Displaying Signs/Symptoms of Drug Intoxication Withdrawal: No Have you been hit, kicked, punched, or otherwise hurt by someone within the past year? If so, by whom?: No Do you feel safe in your current relationship?: Yes Is there a partner from a previous relationship who is making you feel unsafe now?: No Are you made to feel afraid or neglected: No Advance Directives: Yes Advance Directives Information Provided: No Advance Directives on File: No Advance Directives Date on File: 03/30/21 Do you have thoughts of harming others: None Do you have a plan to hurt others: No Plan Recently lost weight without trying: No Eating poorly because of decreased appetite: No Nutrition Risks: No Nutritional Risk Poor oral hygiene: No service: Yes Current occupational status: retired [employer] Allergies Allergy/AdvReac Type Severity Reaction Status Date / Time No Known Allergies Allergy Verified 03/29/21 11:51 [No Known Allergies*] Active Medications: Current Medications Acetaminophen (Acetaminophen 325 Mg Tablet) 650 mg PO Q6H PRN PRN Reason: Pain, Mild (Pain Scale 1-3) Albuterol Sulfate (Albuterol Sulfate (0.083%) 2.5 Mg/3 Ml Vial.Neb) 2.5 mg INHALE Q2H PRN PRN Reason: Shortness of Breath/Wheezing Albuterol/Ipratropium (Albuterol/Iprat 2.5/0.5mg 3 Ml Ampul.Neb) 3 ml INHALE RQ4H WHILE AWAKE [facility] Last Admin: 03/30/21 14:57 Dose: Not Given Documented by: Enoxaparin Sodium (Enoxaparin Sodium 40 Mg/0.4 Ml Syringe) 40 mg SUBCUT Q24H [facility] Last Admin: 03/29/21 16:59 Dose: 40 mg Documented by: Fluticasone/Vilanterol (Fluticasone/Vilanterol 200/25 Blst.W.Dev) 1 puff INHALE RDAILY [facility] Furosemide (Furosemide 40 Mg/4 Ml Vial) 40 mg IVPUSH BID@0900,1800 [facility]; Protocol Last Admin: 03/30/21 09:16 Dose: 40 mg Documented by: Ondansetron HCl (Ondansetron Hcl 4 Mg/2 Ml Vial) 4 mg IVPUSH Q8H PRN PRN Reason: Nausea and Vomiting Pharmacy Consult (Consult Rx Perform Med Rec) 1 each MISCELLANE ONCE PRN PRN Reason: Consult order Sodium Chloride (0.9 % Sodium Chloride Flush 3 Ml Syringe) 3 ml IVFLUSH QSHIFT [facility] Last Admin: 03/30/21 09:17 Dose: 3 ml Documented by: Home Medications Medication Instructions Recorded Confirmed Last Taken Type aspirin 81 mg tablet,delayed 81 mg PO DAILY 06/09/20 03/29/21 03/29/21 History release (Adult Low Dose Aspirin) Physical Exam Vital Signs: Vital Signs: Last Vital Signs Temp 97.6 F 03/30/21 14:59 Pulse 91 03/30/21 14:59 Resp 18 03/30/21 14:59 BP 111/57 L 03/30/21 14:59 Pulse Ox 98 03/30/21 14:59 Body Mass Index 25.2 GENERAL APPEARANCE: in no acute distress, pleasant. NECK: no carotid bruit. Elevated JVD with prominent V-wave. SKIN: no suspicious lesions, warm and dry. HEART: Pansystolic murmur left sternal border, regular rate and rhythm. LUNGS: clear to auscultation bilaterally. ABDOMEN: soft, nontender. EXTREMITIES: no edema. PERIPHERAL PULSES: equal. NEUROLOGIC: No gross deficits, AAO X 3 Objective Labs and Meds Result diagrams: 03/29/21 12:54 03/30/21 05:13 Lab results: Laboratory Results - last 24 hr 03/29/21 03/29/21 03/30/21 15:02 17:01 05:13 O2 Saturation 82.0 ABG pH at Pt Temp 7.49 H ABG pCO2 at Pt Temp 31 L ABG pO2 at Pt Temp 55 L ABG HCO3 24 ABG Base Excess (Actual) 2.0 Sodium 139 Potassium 3.6 Chloride 103 Carbon Dioxide 28 Anion Gap 12 BUN 23 H Creatinine 1.06 Estim Creat Clear Calc 64.0 Estimated GFR > 60 Random Glucose 157 H D Calcium 8.2 L D Magnesium 2.2 B-Natriuretic Peptide COVID-19 ([facility]) Negative COVID-19 Clin Com See Note 03/30/21 05:13 O2 Saturation ABG pH at Pt Temp ABG pCO2 at Pt Temp ABG pO2 at Pt Temp ABG HCO3 ABG Base Excess (Actual) Sodium Potassium Chloride Carbon Dioxide Anion Gap BUN Creatinine Estim Creat Clear Calc Estimated GFR Random Glucose Calcium Magnesium B-Natriuretic Peptide 3097 H COVID-19 ([facility]) COVID-19 Clin Com Assessment and Plan (1) Cor pulmonale: Status: Acute (2) Acute on chronic right-sided heart failure: Status: Acute Pleasant 75-year-old gentleman with known history of cor pulmonale secondary to COPD interstitial lung disease. He is presenting with shortness of breath and COPD exacerbation. Has been on IV steroids and his breathing is improving. Also noticed to be clinically overloaded. He has been on IV diuretics and is improving. He has no significant edema but still has elevated JVD with prominent V-wave. Volume status assessment in the scenario is somewhat challenging because of the V-wave. I think we continue IV diuretics today and potentially change him to oral diuretics tomorrow. Please do not add any Cardizem. Please do not titrate carvedilol. If any concerns about diuresis or concern for blood pressure happen I think carvedilol should be held. We will follow along with you. Thank you for allowing me to participate in the care of your patient. Please feel free to contact me if you have any questions. Procedures Date of Service Date of Service: 03/30/21
[2021-03-30] MEDS: Enoxaparin Sodium 40 MG/0.4 ML SYRINGE SUBCUT (16:34)
[2021-03-31] VITALS (10 sets, daily range): BP systolic 95–122; BP diastolic 58–88; PULSE 76–91; RESP 16–20; TEMP 36.1–36.6; O2SAT 81–94
[2021-03-31] MEDS: Fluticasone/Vilanterol 200/25 BLST.W.DEV 1 PUFF INHALE (08:18)
[2021-03-31] MEDS: Albuterol/Iprat 2.5/0.5MG 3 ML AMPUL.NEB INHALE ×3 (08:18→15:31)
[2021-03-31] MEDS: Furosemide 40 MG TABLET PO ×2 (08:59→17:27)
[2021-03-31] MEDS: 0.9 % Sodium Chloride Flush 3 ML SYRINGE IVFLUSH ×3 (08:59→20:19)
[2021-03-31 09:07] LABS: B Type Natriuretic Peptide 1816 pg/mL (<100)
[2021-03-31 09:12] LABS: Anion Gap 12 (12-20); Blood Urea Nitrogen 25 mg/dL (9-16); Calcium 8.7 mg/dL (8.4-10.2); Carbon Dioxide 28 mmol/L (22-29); Chloride 103 mmol/L (96-108); Creatinine Clr Calc Pharmacy 65.9; Estimated Glomerular Filt Rate > 60; Glucose Random 83 mg/dL (60-115); Potassium 3.5 mmol/L (3.3-5.1); Sodium 139 mmol/L (135-145)
--- NOTE | 2021-03-31 11:36 | MHC.CM.PN ---
nurse healthcare representative note electronic medical record reviewed along with case discussed with hospitalist on multiple disciplinary rounds. met with patient , he continues to be on oxygen 4.5 liters nasal cannula and documented 88% o2 sat, decreased swelling of bilateral legs. continues with respiratory treatments and iv diuretics. spoke to his Julianna [phone] ,she reported to me that her received the moderna covid vaccinations october 13 2020 and then november 10 2020 and has not received the booster as yet. patient has a health care proxy , requested if she could to bring it to the hospital to make copy to have on file. which she agreed to do (i checked with pcp office and they do not have a copy) DISCHARGE PLAN HOME WITH HIS , DECLINED [facility] FOR HOME OXYGEN (IF HE IS DISCHARGED ON CONTINUES OXYGEN HE WILL NEED RESPIRATORY TO CALL AND BRING ADDITIONAL TO HOME) PCP- DR ELI PATIENT INSTRUCTED TO CALL FOR APPOINTMENT POST HOSPITAL DISCHARGE ORTHOTIC/PROSTHETIC CLINICIAN DR BUI / COLLEGE ADVISOR DR QUINTERO FOR FOLLOW UP PER DISCHARGE INSTRUCTIONS COVID VACINATION MODERNA OCTOBER 13 2020 AND NOVEMBER 10, 2020 BY HIS PATIENT TO BRING IN HCP FOR US TO COPY. COMMUNITY NAVIGATION NURSE SARAH FOLLOWING DR MARKS PATIENT, INFORMED PATIENT / OF THIS [facility]- INSTRUCTED TO PATIENT/ BY PHONE- THT REFERRAL NEEDS TO BE MADE BY PCP OR PULMONARY PHYSICIAN .
--- NOTE | 2021-03-31 13:10 | P.PNCA_ITS ---
Subjective Subjective Date of Service: 03/31/21 <JAY Matos - Last Filed: 03/31/21 16:16> 03/31/21 <Jose Griggs MD - Last Filed: 03/31/21 21:27> Principal diagnosis: COPD exacerbation, CHF <JAY Matos - Last Filed: 03/31/21 16:16> Interval history: Cardiology follow up for CHF. Seen at 1000. Today he reports feeling much better. His breathing is not at baseline but improving. He is wearing O2 4.5 L with nasal cannula. He tells me that at home he only wears O2 as needed. Cough at times with some white sputum. No chest pains, palpitations, dizziness. He states his leg edema is much improved. <JAY Matos - Last Filed: 03/31/21 16:16> Review of Systems Review of Systems as above <JAY Matos - Last Filed: 03/31/21 16:16> Yes all other systems are reviewed and are negative <CHRISTIAN MatosC - Last Filed: 03/31/21 16:16> Physical Exam Vital Signs: Last Vital Signs Temp 97.9 F 03/31/21 11:29 Pulse 88 03/31/21 11:46 Resp 17 03/31/21 11:29 BP 103/64 03/31/21 11:29 Pulse Ox 88 L 03/31/21 11:29 Body Mass Index 25.2 <JAY Matos - Last Filed: 03/31/21 16:16> Const General: cooperative, no acute distress, alert and awake <CHRISTIAN MatosC - Last Filed: 03/31/21 16:16> Orientation/consciousness: patient oriented x3 <JAY Matos - Last Filed: 03/31/21 16:16> Neck Neck: Yes normal visual inspection and Yes JVD (v waves from TR present ) <CHRISTIAN MatosC - Last Filed: 03/31/21 16:16> Resp Effort & Inspection: normal respiratory effort and able to speak in complete sentences <CHRISTIAN MatosC - Last Filed: 03/31/21 16:16> Auscultation: rales (Fine rales 1/2 up bilaterally which sound like ILD), no rhonchi and no wheezes <Rama CatGABRIELC - Last Filed: 03/31/21 16:16> Cardio Jugular venous distension: JVD present <Rama Cat HR COORDINATOR-C - Last Filed: 03/31/21 16:16> Rate: regular rate <Rama Stephania HR COORDINATOR-C - Last Filed: 03/31/21 16:16> Rhythm: regular rhythm <Rama Stephania HR COORDINATOR-C - Last Filed: 03/31/21 16:16> Heart sounds: S1 normal heart sound present and S2 normal heart sound present <Rama CatGABRIELC - Last Filed: 03/31/21 16:16> Peripheral pulses: Peripheral pulses 2+ throughout <Rama Cat HR COORDINATOR-C - Last Filed: 03/31/21 16:16> GI Inspection: Yes normal to inspection <Rama CatGABRIEL-C - Last Filed: 03/31/21 16:16> Neuro General: patient oriented x3 <Rama Stephania HR COORDINATOR-C - Last Filed: 03/31/21 16:16> Extrem Other: 1-2+ bilateral lower leg edema, some deflation to skin noted <Rama CatGABRIEL-C - Last Filed: 03/31/21 16:16> Objective Labs and Meds Result diagrams: : 03/29/21 12:54 03/31/21 08:12 <Rama CatGABRIEL-C - Last Filed: 03/31/21 16:16> Lab results: Laboratory Results - last 24 hr 03/31/21 03/31/21 08:12 08:12 Sodium 139 Potassium 3.5 Chloride 103 Carbon Dioxide 28 Anion Gap 12 BUN 25 H Creatinine 1.03 Estim Creat Clear Calc 65.9 Estimated GFR > 60 Random Glucose 83 D Calcium 8.7 D B-Natriuretic Peptide 1816 H <Rama CatGABRIEL-C - Last Filed: 03/31/21 16:16> Progress Note: A&P Assessment and plan (1) Acute on chronic right-sided heart failure: Status: Acute <RamaCHRISTIAN ChavezC - Last Filed: 03/31/21 16:16> Assessment and Plan: Admit with increased sob, hypoxia. Treated for COPD exacerbation, CHF. Hx of COPD, pulmonary fibrosis, cor pulmonale. Last echo 11/23/20 shows EF 55-60%, severe increase in RV size, mod decreased in RV systolic function, mod TR, severe pulm HTN, mild to mod Was initially on IV Lasix and diuresed over 1 liter, has since been changed to PO BNP today 181 which is down from 3077. He reports improvement in breathing and leg edema today. Lungs continue to have fine rales which sound more like ILD than fluid. He has some jugular vein distention, which could be V waves from his Tricuspid regurgitation. He continues to wear O2 4.5 liters with cannula, and sat 88%. He does not wear O2 at home continually, only PRN. Pulmonary consultation not reviewed. Pt has improved with diuresis. Continue on Lasix at 40mg bid. Continue I+O monitoring. O2 supplement as needed for Sat > 90%. Will recheck BNP in am. - He follows with Dr Palacios for outpt cardiology <JAY Matos - Last Filed: 03/31/21 16:16> (2) Cor pulmonale: Status: Acute <JAY Matos - Last Filed: 03/31/21 16:16> (3) COPD (chronic obstructive pulmonary disease): Status: Acute <JAY Matos - Last Filed: 03/31/21 16:16> (4) Pulmonary fibrosis: Status: Acute <JAY Matos - Last Filed: 03/31/21 16:16> (5) Pulmonary hypertension: Status: Acute <JAY Matos - Last Filed: 03/31/21 16:16> Fall Risk Details Current Medications: Current Medications Acetaminophen (Acetaminophen 325 Mg Tablet) 650 mg PO Q6H PRN PRN Reason: Pain, Mild (Pain Scale 1-3) Albuterol Sulfate (Albuterol Sulfate (0.083%) 2.5 Mg/3 Ml Vial.Neb) 2.5 mg INHALE Q2H PRN PRN Reason: Shortness of Breath/Wheezing Albuterol/Ipratropium (Albuterol/Iprat 2.5/0.5mg 3 Ml Ampul.Neb) 3 ml INHALE RQ4H WHILE AWAKE [facility] Last Admin: 03/31/21 11:45 Dose: 3 ml Documented by: Enoxaparin Sodium (Enoxaparin Sodium 40 Mg/0.4 Ml Syringe) 40 mg SUBCUT Q24H [facility] Last Admin: 03/30/21 16:34 Dose: 40 mg Documented by: Fluticasone/Vilanterol (Fluticasone/Vilanterol 200/25 Blst.W.Dev) 1 puff INHALE RDAILY [facility] Last Admin: 03/31/21 08:18 Dose: 1 puff Documented by: Furosemide (Furosemide 40 Mg Tablet) 40 mg PO DAILY [facility]; Protocol Last Admin: 03/31/21 08:59 Dose: 40 mg Documented by: Ondansetron HCl (Ondansetron Hcl 4 Mg/2 Ml Vial) 4 mg IVPUSH Q8H PRN PRN Reason: Nausea and Vomiting Pharmacy Consult (Consult Rx Perform Med Rec) 1 each MISCELLANE ONCE PRN PRN Reason: Consult order Sodium Chloride (0.9 % Sodium Chloride Flush 3 Ml Syringe) 3 ml IVFLUSH QSHIFT [facility] Last Admin: 03/31/21 08:59 Dose: 3 ml Documented by: <JAY Matos - Last Filed: 03/31/21 16:16> Time Spent With Patient Time: Total time spent is greater than 50% in coordination of care (as documented) at patient's floor/unit and/or counseling patient: <JAY Matos - Last Filed: 03/31/21 16:16> Time with patient: 25 - 35 minutes <JAY Matos - Last Filed: 03/31/21 16:16> Progress Note: Quality Stroke Does the patient have a stroke diagnosis?: No <JAY Matos - Last Filed: 03/31/21 16:16> Procedures Date of Service Date of Service: 03/31/21 <JAY Matos - Last Filed: 03/31/21 16:16>
--- NOTE | 2021-03-31 14:39 | HO.PM.IMPN ---
Subjective Subjective Date of Service: 03/31/21 Interval History: chf , copd, run of nsvt Review of Systems Patient shortness of breath slowly improving, denies any chest pain or abdominal pain or fever chills. Physical Exam Vital Signs: Vital Signs: Last Vital Signs Temp 97.9 F 03/31/21 11:29 Pulse 88 03/31/21 11:46 Resp 17 03/31/21 11:29 BP 103/64 03/31/21 11:29 Pulse Ox 88 L 03/31/21 11:29 Body Mass Index 25.2 Physical exam: Gen: in no acute distress HEENT: sclera anicteric, moist mucus membranes. Neck: supple, JVD present Lungs: air entry improving, no rales Heart: regular rate and rhythm, no murmurs Abd: soft, non-tender, non-distended Ext: bilateral leg edema improving Skin: warm/well-perfused Neuro: alert and oriented x3, no focal findings Psych: appropriate affect Objective Data Active Medications Acetaminophen (Acetaminophen 325 Mg Tablet) 650 mg PO Q6H PRN PRN Reason: Pain, Mild (Pain Scale 1-3) Albuterol Sulfate (Albuterol Sulfate (0.083%) 2.5 Mg/3 Ml Vial.Neb) 2.5 mg INHALE Q2H PRN PRN Reason: Shortness of Breath/Wheezing Albuterol/Ipratropium (Albuterol/Iprat 2.5/0.5mg 3 Ml Ampul.Neb) 3 ml INHALE RQ4H WHILE AWAKE [facility] Last Admin: 03/31/21 11:45 Dose: 3 ml Documented by: HAILEE Enoxaparin Sodium (Enoxaparin Sodium 40 Mg/0.4 Ml Syringe) 40 mg SUBCUT Q24H [facility] Last Admin: 03/30/21 16:34 Dose: 40 mg Documented by: MARCIO Fluticasone/Vilanterol (Fluticasone/Vilanterol 200/25 Blst.W.Dev) 1 puff INHALE RDAILY [facility] Last Admin: 03/31/21 08:18 Dose: 1 puff Documented by: HAILEE Furosemide (Furosemide 40 Mg Tablet) 40 mg PO DAILY [facility]; Protocol Last Admin: 03/31/21 08:59 Dose: 40 mg Documented by: HO.LAVM Ondansetron HCl (Ondansetron Hcl 4 Mg/2 Ml Vial) 4 mg IVPUSH Q8H PRN PRN Reason: Nausea and Vomiting Pharmacy Consult (Consult Rx Perform Med Rec) 1 each MISCELLANE ONCE PRN PRN Reason: Consult order Sodium Chloride (0.9 % Sodium Chloride Flush 3 Ml Syringe) 3 ml IVFLUSH QSHIFT [facility] Last Admin: 03/31/21 08:59 Dose: 3 ml Documented by: DAKOTA Labs CBC & Chem 7: 03/29/21 12:54 03/31/21 08:12 Labs: Laboratory Results - last 24 hr 03/31/21 03/31/21 08:12 08:12 Anion Gap 12 Estim Creat Clear Calc 65.9 Estimated GFR > 60 Random Glucose 83 D Calcium 8.7 D B-Natriuretic Peptide 1816 H Assessment and Plan (1) Cor pulmonale: Status: Acute (2) MOORE (dyspnea on exertion): Status: Acute (3) NSVT (nonsustained ventricular tachycardia): Status: Acute Assessment and Plan: 75yo M with R-sided CHF/pHTN secondary to COPD and pulmonary fibrosis presenting with hypoxia from CHF exacerbation 1.R-sided CHF exacerbation - admit to telemetry, diurese with iv lasix-diursed 1.2 liter - continue carvedilol run of nsvt-boderline potassium levels ,symptomatic, added potassium levels , added magnesium levels switched to polasix -leg swelling and bnp improving trend BNP + monitor I/O, BMP, Mg 2.acute/chronic hypoxic respiratory failure - supplemental O2, wean as tolerated 3. COPD exacerbation - will give IV steroids - continue Breo, nebulized SAIMA/SHAN - Pulmonology consult 4. VTE ppx - LMWH Quality Stroke Does the patient have a stroke diagnosis?: No VTE Prior VTE?: No VTE Risk Level:: Medical - moderate - high VTE Device Contraindication: N/A - Device Ordered VTE Drug Contraindication: N/A - Med Ordered
--- NOTE | 2021-03-31 14:44 | PC.NURSE ---
I was [place] by the AGENCY MANAGER [place] [facility] [place] had [place] [address] Mckinnon notified via tiger text. Dr. Mckinnon called me to let me know that he was aware and put orders in.
[2021-03-31] MEDS: Potassium Chloride Packet 20 MEQ PACKET 40 MEQ PO (15:27)
[2021-03-31] MEDS: Enoxaparin Sodium 40 MG/0.4 ML SYRINGE SUBCUT (15:27)
[2021-03-31 15:32] LABS: Alanine Aminotransferase 21 U/L (0-40); Albumin Level 3.5 g/dL (3.5-5.0); Alkaline Phosphatase 122 U/L (39-117); Aspartate Amino Transferase 30 U/L (5-37); Bilirubin Direct 1.7 mg/dL (0.0-0.5); Bilirubin Total 2.4 mg/dL (0.0-1.0); Magnesium 2.3 mg/dL (1.6-2.6); Total Protein 6.3 g/dL (6.5-8.0)
[2021-04-01 04:00] VITALS: BP 124/89; PULSE 90; RESP 16; TEMP 36.7; O2SAT 91
[2021-04-01 07:30] VITALS: BP 112/63; PULSE 78; RESP 17; TEMP 36.4; O2SAT 89
[2021-04-01] MEDS: Furosemide 40 MG TABLET PO (08:11)
[2021-04-01 08:29] VITALS: PULSE 88; O2SAT 89
[2021-04-01] MEDS: Albuterol/Iprat 2.5/0.5MG 3 ML AMPUL.NEB INHALE ×2 (08:29→11:49)
[2021-04-01] MEDS: Fluticasone/Vilanterol 200/25 BLST.W.DEV 1 PUFF INHALE (08:29)
[2021-04-01] MEDS: guaiFENesin 100 MG/5 ML LIQUID PO (10:02)
[2021-04-01] MEDS: 0.9 % Sodium Chloride Flush 3 ML SYRINGE IVFLUSH (10:39)
--- NOTE | 2021-04-01 10:45 | PM.PNCARD ---
Subjective Subjective Date of Service: 04/04/21 Principal diagnosis: COPD exacerbation, CHF Interval history: Feeling better. Still has edema. Physical Exam Vital Signs: Last Vital Signs Temp 97.6 F 04/01/21 07:30 Pulse 88 04/01/21 08:29 Resp 17 04/01/21 07:30 BP 112/63 04/01/21 07:30 Pulse Ox 89 L 04/01/21 07:30 Body Mass Index 25.2 GENERAL APPEARANCE: in no acute distress, pleasant. NECK: no carotid bruit.? Elevated JVD with prominent V-wave. SKIN: no suspicious lesions, warm and dry. HEART:? Pansystolic murmur left sternal border, regular rate and rhythm. LUNGS: clear to auscultation bilaterally. ABDOMEN: soft, nontender. EXTREMITIES: 1+ edema. PERIPHERAL PULSES: equal. NEUROLOGIC: No gross deficits, AAO X 3 Objective Labs and Meds Result diagrams: 03/29/21 12:54 03/31/21 08:12 Lab results: Laboratory Results - last 24 hr 03/31/21 08:12 Magnesium 2.3 Total Bilirubin 2.4 H Direct Bilirubin 1.7 H AST 30 ALT 21 Alkaline Phosphatase 122 H Total Protein 6.3 L Albumin 3.5 Progress Note: A&P Assessment and plan (1) Acute on chronic right-sided heart failure: Status: Acute Assessment and Plan: 75-year-old gentleman with known right heart failure due to COPD and distal lung disease. He is presenting with hypoxia due to COPD and interstitial lung disease primarily. Also noticed to be volume overloaded. Diuresed with IV diuretics. He continues to be somewhat volume overloaded at this stage. I think should get 1 more dose of IV Lasix and then we change him to p.o. Lasix. Thank you for allowing me to participate in the care of your patient. Please feel free to contact me if you have any questions. Fall Risk Details Current Medications: Current Medications Acetaminophen (Acetaminophen 325 Mg Tablet) 650 mg PO Q6H PRN PRN Reason: Pain, Mild (Pain Scale 1-3) Albuterol Sulfate (Albuterol Sulfate (0.083%) 2.5 Mg/3 Ml Vial.Neb) 2.5 mg INHALE Q2H PRN PRN Reason: Shortness of Breath/Wheezing Albuterol/Ipratropium (Albuterol/Iprat 2.5/0.5mg 3 Ml Ampul.Neb) 3 ml INHALE RQ4H WHILE AWAKE [facility] Last Admin: 04/01/21 08:29 Dose: 3 ml Documented by: Enoxaparin Sodium (Enoxaparin Sodium 40 Mg/0.4 Ml Syringe) 40 mg SUBCUT Q24H [facility] Last Admin: 03/31/21 15:27 Dose: 40 mg Documented by: Fluticasone/Vilanterol (Fluticasone/Vilanterol 200/25 Blst.W.Dev) 1 puff INHALE RDAILY [facility] Last Admin: 04/01/21 08:29 Dose: 1 puff Documented by: Furosemide (Furosemide 40 Mg Tablet) 40 mg PO BID@0900,1800 [facility]; Protocol Last Admin: 04/01/21 08:11 Dose: 40 mg Documented by: Guaifenesin (Guaifenesin 100 Mg/5 Ml Liquid) 5 ml PO Q4H PRN PRN Reason: Cough Last Admin: 04/01/21 10:02 Dose: 5 ml Documented by: Ondansetron HCl (Ondansetron Hcl 4 Mg/2 Ml Vial) 4 mg IVPUSH Q8H PRN PRN Reason: Nausea and Vomiting Pharmacy Consult (Consult Rx Perform Med Rec) 1 each MISCELLANE ONCE PRN PRN Reason: Consult order Prednisone (Prednisone 20 Mg Tablet) 40 mg PO ONCE ONE Stop: 04/01/21 10:45 Sodium Chloride (0.9 % Sodium Chloride Flush 3 Ml Syringe) 3 ml IVFLUSH QSHIFT [facility] Last Admin: 04/01/21 10:39 Dose: 3 ml Documented by: Time Spent With Patient Time: Total time spent is greater than 50% in coordination of care (as documented) at patient's floor/unit and/or counseling patient: Time with patient: 15 - 24 minutes Progress Note: Quality Stroke Does the patient have a stroke diagnosis?: No Procedures Date of Service Date of Service: 04/01/21
--- NOTE | 2021-04-01 10:48 | PM.DS ---
DS: Providers Provider Date of Service: 04/01/21 Date of admission: 03/29/21 15:50 Primary care physician: Odilon Llanes MD Consults: 03/29/21 15:16 Consult to Cardiology Routine Consulting Provider: Jose Griggs Reason for consultation: R sided CHF exac 03/29/21 15:49 Consult to Pulmonology Routine Consulting Provider: [facility] [place] [facility] Reason for consultation: COPD,. pulmonary fibrosis, severe phtn DS: Diagnosis Discharge Diagnosis (1) Acute on chronic right-sided heart failure: Status: Acute (2) Cor pulmonale: Status: Acute (3) COPD (chronic obstructive pulmonary disease): Status: Acute (4) Pulmonary fibrosis: Status: Acute (5) Pulmonary hypertension: Status: Acute DS: Summary Hospital Course Hospital Course: 75yo M with R-sided CHF/pHTN secondary to COPD and pulmonary fibrosis presenting with hypoxia from CHF exacerbation Hospital course:Patient has right-sided have failure and COPD exacerbation: Subsequently patient was started on nebs, steroids, IV diuretics and patient seems to be improving afterwards- Leg swelling significantly better. CHF education given, seen by Cardiology and recommended to switch to p.o. Lasix upon discharge. COPD : Continue albuterol, Breo, prednisone added. Patient is to follow up outpatient with Cardiology and PCP. Above management discussed with the patient in detail length he understand and in agreement with the above plan, time spent 50 minutes and 50% time spent on counseling. Significant findings: As above. Procedures performed: None. Treatment and response: As above. Complications: None. Time Spent with Patient Time attestation: Total time spent providing and/or coordinating discharge services: Discharge coordination time: Greater than 30 minutes Quality: Stroke Does the patient have a stroke diagnosis?: No Physical Exam Vital Signs: Vital Signs: Last Vital Signs Temp 97.6 F 04/01/21 07:30 Pulse 88 04/01/21 08:29 Resp 17 04/01/21 07:30 BP 112/63 04/01/21 07:30 Pulse Ox 89 L 04/01/21 07:30 Body Mass Index 25.2 Gen: in no acute distress HEENT: sclera anicteric, moist mucus membranes. Neck: supple Lungs: air entry improving, no rales Heart: regular rate and rhythm, no murmurs Abd: soft, non-tender, non-distended Ext:? bilateral leg trace edema Skin: warm/well-perfused Neuro: alert and oriented x3, no focal findings Psych: appropriate affec DS: Data Data Completed and Pending Labs on day of discharge: Laboratory Results - last 24 hr 03/31/21 08:12 Magnesium 2.3 Total Bilirubin 2.4 H Direct Bilirubin 1.7 H AST 30 ALT 21 Alkaline Phosphatase 122 H Total Protein 6.3 L Albumin 3.5 Discharge Plan Discharge Patient Disposition: Home Health Service Discharge Diagnosis: Right-sided heart failure, COPD exacerbation Referrals: [facility] [Outside] - 1 Week Odilon Llanes MD [Primary Care Provider] - 1 Week Discharge Medications: New guaifenesin 100 mg/5 mL Liquid 100 mg PO Q4H PRN (Reason: Cough) Qty: 200 RF: 0 prednisone 20 mg tablet 40 mg PO DAILY Qty: 8 RF: 0 Breo Ellipta 200-25 mcg/dose Blister With Device 1 ea inhalation RDAILY Qty: 28 RF: 0 omeprazole 20 mg capsule,delayed release(DR/EC) 20 mg PO DAILY Qty: 30 RF: 0 Continued albuterol sulfate 90 mcg/actuation HFA aerosol inhaler 2 puff inhalation Q4H PRN (Reason: shortness of breath or wheezing) Qty: 8.5 RF: 11 aspirin [Adult Low Dose Aspirin] 81 mg tablet,delayed release (DR/EC) 81 mg PO DAILY RF: 0 carvedilol 3.125 mg tablet 3.125 mg PO BID Qty: 180 RF: 4 Changed furosemide 40 mg tablet 60 mg PO DAILY Qty: 90 RF: 4 Discharge Orders: Discharge Order (Routine); Ordered 04/01/21 Ordered By: Dominga Mckinnon Diet: advance to usual diet, low fat, low cholesterol and low salt diet Activity on Discharge: As tolerated Stand Alone Forms: Patient Portal Discharge page Care Plan Goals: Patient has right-sided have failure and COPD exacerbation: Subsequently patient was started on nebs, steroids, IV diuretics and patient seems to be improving afterwards- Leg swelling significantly better. CHF education given, seen by Cardiology and recommended to switch to p.o. Lasix upon discharge. Patient is to follow up outpatient with Cardiology and PCP. Health Concerns: As above. Plan of Treatment: As above. Assessment: As above.
[2021-04-01] MEDS: predniSONE 20 MG TABLET 40 MG PO (10:54)
[2021-04-01] MEDS: Furosemide 40 MG/4 ML VIAL IVPUSH (10:54)
--- NOTE | 2021-04-01 11:01 | MHC.CM.PN ---
MELISSA MET WITH PTS SON WHO WAS AT BEDSIDE. HE REPORTS THE FAMILY HAS DECIDED THE PT WILL GO HOME AT DC PER HIS WISHES. HE ALSO REPORTS HIS DAUGHTER WILL BE STAYING WITH THE PT TO PROVIDE 24/7 CARE. HE IS ALSO AWARE THE PT WILL HAVE [facility] SERVICES POST DC. MELISSA ALSO CALLED PTS DAUGHTER, CAROLE [phone], WHO CONFIRMED THE DC PLAN. SHE REPORTED SHE THOUGHT THE PT WOULD BE DISCHARGING TOMORROW BUT INDICATED THERE WERE NO CONCERNS RELATED TO THE PT DISCHARGING TODAY. SHE WAS INFORMED THE PT WOULD BE READY FOR DC AROUND 1200 HOURS. PT WILL DC HOME TODAY WITH 24/7 CARE PROVIDED BY THE FAMILY AND [facility] FOR PT AND SN. FAMILY WILL TRANSPORT
[2021-04-01 11:29] VITALS: BP 111/63; PULSE 85; RESP 18; TEMP 36.4; O2SAT 88
[2021-04-01 11:52] VITALS: PULSE 84; O2SAT 88
--- NOTE | 2021-04-01 11:59 | MHC.CM.PN ---
Addendum entered by Stacy Cook 04/01/21 12:10: PT AWARE HE SHOULD FOLLOW UP WITH DR MCCRARY FOR PULMONOLOGY Original Note: PT WILL DC HOME TODAY WITH NO NEW SERVICES. TO TRANSPORT
== END 2021-04-01 14:30 | disposition home or self-care (01) | DRG 291 ==
LOC: HO.ED 15:53 → HO.EDOVER 16:07 → HO.S3 03-30 00:23
PROVIDERS: Admitting Provider Family Medicine; Emergency Provider Emergency Medicine; PCP Internal Medicine; Visit Provider Internal Medicine
DX: I50.813 Acute on chronic right heart failure (principal); J96.21 Acute and chronic respiratory failure with hypoxia; J44.1 Chronic obstructive pulmonary disease with (acute) exacerbation; J84.10 Pulmonary fibrosis, unspecified; I42.8 Other cardiomyopathies; I27.81 Cor pulmonale (chronic); I27.29 Other secondary pulmonary hypertension; Z20.822 Contact with and (suspected) exposure to COVID-19; Z79.51 Long term (current) use of inhaled steroids; Z79.82 Long term (current) use of aspirin; Z79.899 Other long term (current) drug therapy
CPT/HCPCS: 36415; 36600; 71045; 80048; 80053; 80076; 82803; 83735; 83880; 84484; 85025; 87635; 93005; 94640; 96374; 99285; J1650; J1940; J2920

== ENCOUNTER 2021-04-30 11:22 | Outpatient (REF) | payer MEDICARE, OTHER, SELFPAY ==
[2021-04-30 13:53] LABS: Basophils Percent Auto 0.3 % (0-2); Eosinophils Percent Auto 0.3 % (0-4); Hematocrit 47.8 % (42.0-52.0); Hemoglobin 15.8 g/dl (14.0-18.0); Imm Gran Abs Auto 0.02 X10*3/uL (0.00-0.03); Imm Gran Pct Auto 0.3 % (0.0-0.4); Lymphocytes Absolute Auto 1.7 X10*3/uL (1.2-4.9); Lymphocytes Percent Auto 26.9 % (20-40); MANUAL DIFF FLAG NO; Mean Corpuscular HGB Conc 33.1 g/dl (31.0-36.0); Mean Corpuscular Hemoglobin 35.8 pg (27.0-33.0); Mean Corpuscular Volume 108.4 fL (80.0-98.0); Mean Platelet Volume 9.9 fL (9.4-12.4); Monocytes Absolute Auto 0.5 X10*3/uL (0.1-1.2); Monocytes Percent Auto 8.3 % (2-11); Neutrophils Percent Auto 63.9 % (45-73); Platelet Count 154 X10*3/uL (160-400); Red Blood Count 4.41 X10*6/uL (4.60-5.80); Red Cell Distribution Width 16.3 % (11.0-16.0); White Blood Count 6.3 X10*3/uL (4.8-10.8)
[2021-04-30 14:20] LABS: Alanine Aminotransferase 24 U/L (0-40); Albumin Level 3.7 g/dL (3.5-5.0); Alkaline Phosphatase 156 U/L (39-117); Anion Gap 15 (12-20); Aspartate Amino Transferase 31 U/L (5-37); Bilirubin Total 2.1 mg/dL (0.0-1.0); Blood Urea Nitrogen 27 mg/dL (9-16); Calcium 9.1 mg/dL (8.4-10.2); Carbon Dioxide 26 mmol/L (22-29); Chloride 103 mmol/L (96-108); Estimated Glomerular Filt Rate > 60; Glucose Random 68 mg/dL (60-115); Potassium 3.9 mmol/L (3.3-5.1); Sodium 140 mmol/L (135-145); Total Protein 6.9 g/dL (6.5-8.0)
== END 2021-04-30 11:23 | disposition home or self-care (01) ==
LOC: HO.10HDL 11:22
PROVIDERS: Visit Provider Internal Medicine
DX: J44.9 Chronic obstructive pulmonary disease, unspecified (principal); N18.9 Chronic kidney disease, unspecified
CPT/HCPCS: 36415; 80053; 85025

== ENCOUNTER → 2021-05-10 08:49 | Outpatient (REF) | payer MEDICARE, OTHER, SELFPAY ==
--- NOTE | 2021-05-10 08:52 | CA_ITS ---
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 The calculated ejection fraction is 57% by biplane method. - Severely increased right ventricular cavity size. There is moderately decreased right ventricular systolic function. - There is mild mitral annular calcification. There is mild posterior mitral leaflet prolapse. There is mild mitral valve regurgitation. - There is moderate tricuspid valve regurgitation. - Severe pulmonary hypertension is present. Findings Left Ventricle Normal left ventricular cavity size. There is mildly increased left ventricular wall thickness. The left ventricular systolic function is normal. The calculated ejection fraction is 57% by biplane method. There is no evidence of regional wall motion abnormalities. There is a flattened septum in systole consistent with right ventricular pressure overload. Right Ventricle Severely increased right ventricular cavity size. There is moderately decreased right ventricular systolic function. TAPSE 1.4cm. Atria The left atrium is normal in size. The right atrium is severely dilated. Aortic Valve There is a normal trileaflet aortic valve. There is mild calcification of the aortic valve. There is no aortic valve stenosis. There is no aortic valve regurgitation. Mitral Valve There is mild mitral annular calcification. There is mild posterior mitral leaflet prolapse. There is mild mitral valve regurgitation. There is no mitral valve stenosis. Pulmonic Valve The pulmonic valve was not well visualized. There is trace pulmonic valve regurgitation. Tricuspid Valve Normal tricuspid valve structure. There is moderate tricuspid valve regurgitation. The right ventricular systolic pressure is 86 mmHg. Severe pulmonary hypertension is present. Great Vessels The aortic annulus, sinuses of valsalva, and asc aorta are normal in size. Venous The inferior vena cava is dilated and collapses less than 50% with inspiration. Pericardium/Pleural There is a small loculated pericardial effusion overlying the left ventricle. There are no definitive echocardiographic findings of tamponade physiology. Prior Study Comparison Changes noted compared to prior study dated: 11/23/2020. RVSP even higher. Measurements 2D Linear Measurements IVSd: 1.06 0.6-0.9/0.6-1.0 cm LVIDd: 4.25 3.9-5.3/4.2-5.9 cm LVIDd Index: 2.28 2.4-3.2/2.2-3.1 cm/m2 LVIDs: 2.21 2.0-3.6 cm LVPWd: 1.02 0.7-1.1 cm Ao Root: 3.40 2.1-3.5 cm LA Diam: 3.40 2.7-3.8/3.0-4.0 cm LAIDs Index: 1.83 1.5-2.3 cm/m2 LV Mass: 183.95 67-162/88-224 g LV Mass Index: 98.90 43-95/49-115 g/m2 LVOT Diam: 2.00 3.0+(-)1.3 cm 2D Volumes LA Vol: 29.50 2D Systolic Function EF 4C: 58.30 >55% EF 2C: 60.90 >55% EF BiP: 57.40 >55% Mitral Valve MV Pk E: 0.82 MV PK A: 1.10 MV Decel Time: 201.00 E/A: 0.70 E'Lateral: 6.74 E'Medial: 4.68 E/E' Med: 17.50 E/E' Lat: 12.10 PHT: 59.00 MVA PHT: 3.73 Decel [place]: 4.08 Aortic Valve AoV Pk Abhilash: 1.19 AoV Mn Abhilash: 0.85 AoV VTI: 0.20 AoV Pk Grad: 6.00 Aov Mn Grad: 3.00 DANIELLE Cont.VTI: 2.10 LVOT LVOT Pk Abhilash: 0.72 LVOT Mn Abhilash: 0.46 LVOT VTI: 0.13 LVOT Pk Grad: 2.00 LVOT Mn Grad: 1.00 LVOT Diam: 2.00 LVOT Area: 3.14 Diastolic Function MV Pk E: 0.82 MV Pk A: 1.10 E/A: 0.70 E'Medial: 4.68 E/E' Med: 17.50 E' Laterial: 6.74 E/E' Lat: 12.10 Right Ventricle TAPSE (mm): 1.41 TVS' Abhilash: 7.40 Tricuspid Valve TR Pk Abhilash: 4.21 TR Pk Grad: 71.00 RA Press: 15.00 RVSP: 86.00 Great Vessels Aorta Ao Root-2D: 3.40 2.0-3.7 cm Ao Asc: 3.10 2.1-3.4 cm Ao Arch: 2.60 Updated in Other Vendor System with Status of Final Govind Palacios MD electronically signed on 05/10/2021 12:42:04 PM with status of Final
== END ==
LOC: HO.CARD 08:49
PROVIDERS: PCP Internal Medicine; Visit Provider Internal Medicine
DX: I50.812 Chronic right heart failure (principal)
CPT/HCPCS: 93306

== ENCOUNTER 2021-05-14 14:01 | Inpatient (IN) | payer OTHER, SELFPAY ==
[2021-05-14] VITALS (8 sets, daily range): BP systolic 100–130; BP diastolic 52–71; PULSE 78–100; RESP 16–22; TEMP 36.4–36.6; O2SAT 89–95; BMI 23.5
--- NOTE | ~2021-05-14 | US_ITS ---
EXAMINATION: US VENOUS ULTRASOUND WITH DOPPLER LOWER EXTREMITY, BILATERAL CLINICAL INFORMATION: Swelling, rule out DVT COMPARISON: None TECHNIQUE: Ultrasound of the deep veins is performed from the hip to the calf with compression sonography and color and pulse Doppler assessment. Spectral analysis with color-flow imaging is performed. FINDINGS: RIGHT: There is normal venous compression and respiratory variation and augmented flow. The visualized common femoral vein, superficial femoral vein, profunda femoral vein, popliteal vein, and the trifurcation region shows no evidence of deep venous thrombosis. There is no significant popliteal fossa cyst. Minimal edema in the subcutaneous fat of the posterior calf. LEFT: There is normal venous compression and respiratory variation and augmented flow. The visualized common femoral vein, superficial femoral vein, profunda femoral vein, popliteal vein, and the trifurcation region shows no evidence of deep venous thrombosis. There is no significant popliteal fossa cyst. Subcutaneous edema of the soft tissues of the posterior calf. If the patient's symptoms persist, followup ultrasound in 5 days 7 days might be of value to exclude proximal propagation from a non-visualized calf vein. US/US venous duplex LE IMPRESSION: No DVT demonstrated in the bilateral lower extremity.
--- NOTE | ~2021-05-14 | XR_ITS ---
EXAMINATION: XR chest 1V CLINICAL INFORMATION: Dyspnea COMPARISON: 03/29/2021 TECHNIQUE: XR chest 1V Tubes and lines: None Lungs and pleura: Diffuse increased interstitial opacification and peribronchial cuffing might be a small airway disease such as interstitial pneumonitis, versus interstitial lung disease versus edema. No dense focal consolidation pneumonia. Heart and mediastinum: The mediastinum is within normal limits.. Bones/soft tissue: Skeletal structures included are normal for patient's age. XR/XR chest 1V IMPRESSION: Slightly increased diffuse increased interstitial lung marking and peribronchial cuffing might be a small airway disease such as bronchiolitis or interstitial pneumonitis, versus interstitial lung disease versus interstitial edema. No dense focal consolidation pneumonia.
--- NOTE | ~2021-05-14 | CT_ITS ---
EXAMINATION: CT ANGIOGRAM OF THE CHEST WITH AND WITHOUT CONTRAST (CT PULMONARY ANGIOGRAM FOR PE) CLINICAL INFORMATION: Hypoxia COMPARISON: CT chest 07/20/2020 TECHNIQUE: Prior to contrast administration, noncontrast localization images were obtained. Subsequently, multidetector volumetric imaging was performed from the thoracic inlet to below the diaphragms following the administration of 85 mL Omnipaque 350 intravenous contrast. No contrast reaction reported Sagittal, coronal, and MIP oblique sagittal reformatted images were obtained on the CT workstation, uploaded to PACS, and reviewed. This CT examination was performed using dose optimization techniques as appropriate, variously including the following: *Automated exposure control *Adjustment of mA and/or kV according to patient size (this includes techniques or standardized protocols for targeted exams where dose is matched to indication/reason for exam; i.e. extremities or head) *Use of iterative reconstruction technique Total exam dose-length product 208 mGy-cm FINDINGS: QUALITY OF STUDY/CONTRAST BOLUS: Satisfactory. PULMONARY ARTERIES: No central or segmental pulmonary emboli. THORACIC AORTA: No aneurysm or dissection. LUNG: Severe centrilobular and paraseptal emphysema again seen. Ovoid 3 x 8 mm right upper lobe lung nodule in image [id number] is unchanged. Mild bronchial wall thickening. No new focal consolidation or mass. PLEURA: No pleural effusion or pneumothorax. MEDIASTINUM: Cardiomegaly. Small pericardial effusion. Subcarinal lymphadenopathy measures 1.9 x 1.3 cm, similar to prior. 9 x 12 mm pretracheal lymph node is smaller than on the prior study. Prominent hilar lymph nodes, similar to prior. Again seen is an outpouching from the inferior lateral aspect of the aortic arch, stable since 2019. CHEST WALL/AXILLA: No axillary or internal mammary lymphadenopathy. OSSEOUS STRUCTURES: No acute or suspicious osseous abnormality. UPPER ABDOMEN: No adrenal mass. No reflux of contrast into the hepatic veins to suggest elevated right heart pressures. CT/CT angio chest PE protocol IMPRESSION: No pulmonary embolus seen. Severe centrilobular and paraseptal emphysema. Ovoid 3 x 8 mm right upper lobe lung nodule, stable since 2019 suggesting a benign etiology. Consider continued follow-up based on the patient's risk factors for lung cancer. Similar appearance of mild subcarinal lymphadenopathy. Similar appearance of prominent tracheal and hilar lymph nodes. Again seen is an outpouching from the inferior lateral aspect of the aortic arch, stable since 2019. This could reflect sequelae of prior aortic injury. Consider vascular surgery consultation. VTE: negative
--- NOTE | ~2021-05-14 | XR_ITS ---
EXAMINATION: XR CHEST CLINICAL INFORMATION: Pneumonia, follow-up. COMPARISON: Chest radiographs dated 05/14/2021 and 03/29/2021, chest CT dated 07/20/2020 TECHNIQUE: Frontal view of the chest was obtained. FINDINGS: Coarsened interstitial markings are again seen bilaterally with similar distribution and severity. The heart and mediastinal structures are unremarkable. XR/XR chest 1V IMPRESSION: Coarsened interstitial markings bilaterally show similar distribution and severity to previous studies consistent with the patient's known COPD and chronic interstitial changes. No significant new abnormality. No acute cardiopulmonary process.
--- NOTE | 2021-05-14 14:07 | ECG_ITS ---
Test Reason : SHORT OF BREATH Blood Pressure : / mmHG Vent. Rate : 080 BPM Atrial Rate : 080 BPM P-R Int : 166 ms QRS Dur : 124 ms QT Int : 438 ms P-R-T Axes : 074 -02 022 degrees QTc Int : 505 ms Normal sinus rhythm Right bundle branch block Abnormal ECG When compared with ECG of 29-MAR-2021 13:05, Right bundle branch block has replaced Non-specific intra-ventricular conduction block Referred By: Deepti Echols Electronically Signed By:Jose Griggs
--- NOTE | 2021-05-14 14:08 | ED.SOB ---
HPI - SOB/Dyspnea General Chief Complaint: Upper Respiratory Symptoms Stated Complaint: sent by [facility] [place] [facility] low oxygen levels Time Seen by Provider: 05/14/21 14:06 Source: patient Mode of arrival: wheelchair Limitations: no limitations History of Present Illness HPI Narrative: went to urgent care with today who doesn't feel well to get tested, they are both vaccinated. Staff noted his fingertips to be purple states his sat was 76% on his normal 4L NC - patient notes he did not take his lasix today, is not on prednisone. He is annoyed he is here. He does not he feels short of breath. MD elicited complaint: shortness of breath Pertinent past history: COPD and congestive heart failure Onset (ago): day(s) (noted today ) Context: other (hx of pulm fibrosis, CHF, COPD on 4L NC best O2 sat is 90% per patient) Timing: constant Severity: moderate Exacerbating factors: exertion Relieving factors: oxygen and rest Known history of: COPD and congestive heart failure Associated symptoms: cough and other (LE edema) Treatment prior to arrival: oxygen (4L NC) Related Data Home Medications Medication Instructions Recorded Confirmed aspirin 81 mg tablet,delayed 81 mg PO DAILY 06/09/20 05/14/21 release (Adult Low Dose Aspirin) cholecalciferol (vitamin D3) 25 25 mcg PO DAILY 05/14/21 05/14/21 mcg (1,000 unit) capsule (Vitamin D3) furosemide 40 mg tablet 40 mg PO DAILY 05/14/21 05/14/21 multivitamin 1 tab PO DAILY 05/14/21 05/14/21 vitamin E 400 unit capsule 400 unit PO DAILY 05/14/21 05/14/21 Previous Rx's Medication Instructions Recorded carvedilol 3.125 mg tablet 3.125 mg PO BID #180 tab 12/14/20 albuterol sulfate 90 mcg/actuation 2 puff INHALATION Q4H PRN #8.5 g 03/29/21 aerosol inhaler Allergies Allergy/AdvReac Type Severity Reaction Status Date / Time No Known Allergies Allergy Verified 03/29/21 11:51 [No Known Allergies*] Review of Systems Review of Systems: Constitutional : No Fever, No Chills ENT/Mouth : No sore throat, No Rhinorrhea, No Swallowing Difficulty Eyes: No Eye Pain, No Swelling, No Redness Cardiovascular : No Chest Pain, positive SOB, No Orthopnea, positive Edema Respiratory : pos Cough, pos Sputum, No Wheezing, positive dyspnea Gastrointestinal : No Nausea, No Vomiting, No Diarrhea, No abdominal Pain, No Hematochezia, No Melena Genitourinary : No Dysuria, No Urinary Frequency, No Hematuria Musculoskeletal : No joint pain, No Myalgias Skin : No Skin Lesions, No rash Neuro : No Weakness, No Numbness, No Dizziness, No Headache Psych : No Anxiety/Panic, No Depression Heme/Lymph: No Bruising, No Lymphadenopathy Endocrine : No Polyuria, No Polydipsia All other systems reviewed and are negative [facility] Past Medical History Attestation statement: The following information was validated with the patient. Source: old records reviewed Medical History Chronic respiratory failure Chronic right heart failure COPD (chronic obstructive pulmonary disease) MOORE (dyspnea on exertion) Edema leg Emphysema lung Limb swelling NICM (nonischemic cardiomyopathy) Pulmonary fibrosis Pulmonary hypertension Surgical History History of inguinal hernia repair Family History Family History Father Cancer Mother Cancer Social History Social History Household Members: Spouse Housing: House Alcohol intake: current Alcohol intake frequency: holidays/special occasions only Patient Tobacco Use Status: Former Tobacco user Cigarette Packs Per Day: 1 Cigarettes Per Day: 7 Years Smoked: 20 years Use of substances other than those prescribed or required for medical reasons: No Advance Directives: Yes Advance Directives on File: Yes Advance Directives Date on File: 03/30/21 service: Yes Current occupational status: retired Physical Exam Vital Signs: Vital Signs: Last Vital Signs Temp 97.8 F 05/14/21 15:24 Pulse 100 05/14/21 15:47 Resp 20 05/14/21 15:47 BP 130/60 05/14/21 15:47 Pulse Ox 90 L 05/14/21 16:37 Oxygen Flow Rate 5 05/14/21 16:37 BMI result Body Mass Index 23.5 Appearance: Alert. Oriented X3. No acute distress. Eyes: Pupils equal, round and reactive to light. ENT: Lips dusky and purple Neck: Normal inspection. Neck supple. + JVD CVS: Normal heart rate and rhythm. Pulses normal. Respiratory: Mild respiratory distress retractions, tachypnea and pursed lipped breathing. Breath sounds coarse throughout very diminished Abdomen: Soft and non-tender. Skin: Skin warm and dry. dusky skin color. Normal skin turgor. Fingerbeds are purple Extremities: 2+ pitting lower extremity edema. No calf ttp Neuro: Oriented X 3. No motor deficit. No sensory deficit. Course Course Course Narrative: lactic acidosis due to hypoxia and not infection or severe sepsis - CHF fluid overload increased wob - patient desaturates to 60s with exertion, increased LE / JVD responding to nebs, IV lasix ordered Dr. Mckinnon to come see if patient meets criteria for admission 440pm - FABI Lopez to assume care. MDM - SOB/Dyspnea MDM Narrative Medical decision making narrative: 75 yo male with hx of rCHF, COPD on 4L NC, NICM did not take lasix today, off steroids notes his wasn't feeling well so they went to urgent care for her - he is vaccinated. Staff noted his increased WOB and purple fingers his sat on his home O2 4L NC was 76% he refused 911 transfer comes to to ED with c/o increased wob - at this time labs, CXR, COVID swab, IV steroids, IV lasix, 5mg neb - dispo per results and findings. Currently 92% on his 4L NC which is baseline for the patient. Lab Data Result diagrams: 05/14/21 16:09 05/14/21 15:08 Labs: Lab Results 05/14/21 05/14/21 05/14/21 Range/Units 14:50 15:08 15:08 WBC (4.8-10.8) X10*3/uL RBC (4.60-5.80) X10*6/uL Hgb (14.0-18.0) g/dl Hct (42.0-52.0) % MCV (80.0-98.0) fL MCH (27.0-33.0) pg MCHC (31.0-36.0) g/dl RDW (11.0-16.0) % Plt Count (160-400) X10*3/uL MPV (9.4-12.4) fL Immature Gran % (Auto) (0.0-0.4) % Neut % (Auto) (45-73) % Lymph % (Auto) (20-40) % Reagan % (Auto) (2-11) % Eos % (Auto) (0-4) % Baso % (Auto) (0-2) % Lymph # (Auto) (1.2-4.9) X10*3/uL Reagan # (Auto) (0.1-1.2) X10*3/uL Eos # (Auto) (0.0-0.4) X10*3/uL Baso # (Auto) (0.0-0.2) X10*3/uL Abs Immat Gran (auto) (0.00-0.03) X10*3/uL Absolute Neuts (auto) (2.0-8.3) x10*3/uL Absolute Nucleated RBC (0.0-0.012) X10*3/uL Nucleated RBC % (auto) (0.0-0.2) /100WBC Smear Tech's Comments VBG pH (7.32-7.43) VBG pCO2 mmHg VBG pO2 mmHg VBG HCO3 (22-26) mmol/L VBG O2 Saturation % VBG Base Excess mmol/L Sodium 142 (135-145) mmol/L Potassium 4.2 (3.3-5.1) mmol/L Chloride 104 (96-108) mmol/L Carbon Dioxide 27 (22-29) mmol/L Anion Gap 15 (12-20) BUN 29 H (9-16) mg/dL Creatinine 1.05 (0.5-1.4) mg/dL Estim Creat Clear Calc 58.5 Estimated GFR > 60 Random Glucose 95 D (60-115) mg/dL Lactic Acid 2.8 H* (0.5-2.0) mmol/L Calcium 9.2 (8.4-10.2) mg/dL Magnesium 2.3 (1.6-2.6) mg/dL Ferritin 326 H (20-250) ng/mL Total Bilirubin 2.5 H (0.0-1.0) mg/dL Direct Bilirubin 1.4 H (0.0-0.5) mg/dL AST 30 (5-37) U/L ALT 24 (0-40) U/L Alkaline Phosphatase 159 H (39-117) U/L Lactate Dehydrogenase 296 H (118-273) U/L Troponin I High Sens (<3.5-35.0) ng/L C-Reactive Protein 1.84 H (< or = 0.50) mg/dL Total Protein 7.2 (6.5-8.0) g/dL Albumin 4.0 (3.5-5.0) g/dL Lipase 54 (8-78) U/L Influenza Type A (PCR) NEGATIVE (Negative) Influenza Type B (PCR) NEGATIVE (Negative) RSV RNA Qual (PCR) NEGATIVE (Negative) SARS-CoV-2 RNA (RT-PCR) NEGATIVE (Negative) 05/14/21 05/14/21 05/14/21 Range/Units 15:08 15:08 15:16 WBC (4.8-10.8) X10*3/uL RBC (4.60-5.80) X10*6/uL Hgb (14.0-18.0) g/dl Hct (42.0-52.0) % MCV (80.0-98.0) fL MCH (27.0-33.0) pg MCHC (31.0-36.0) g/dl RDW (11.0-16.0) % Plt Count (160-400) X10*3/uL MPV (9.4-12.4) fL Immature Gran % (Auto) (0.0-0.4) % Neut % (Auto) (45-73) % Lymph % (Auto) (20-40) % Reagan % (Auto) (2-11) % Eos % (Auto) (0-4) % Baso % (Auto) (0-2) % Lymph # (Auto) (1.2-4.9) X10*3/uL Reagan # (Auto) (0.1-1.2) X10*3/uL Eos # (Auto) (0.0-0.4) X10*3/uL Baso # (Auto) (0.0-0.2) X10*3/uL Abs Immat Gran (auto) (0.00-0.03) X10*3/uL Absolute Neuts (auto) (2.0-8.3) x10*3/uL Absolute Nucleated RBC (0.0-0.012) X10*3/uL Nucleated RBC % (auto) (0.0-0.2) /100WBC Smear Tech's Comments VBG pH 7.34 7.34 (7.32-7.43) VBG pCO2 51 51 mmHg VBG pO2 35 35 mmHg VBG HCO3 27 H 27 H (22-26) mmol/L VBG O2 Saturation 43.0 43.0 % VBG Base Excess 1.0 1.0 mmol/L Sodium (135-145) mmol/L Potassium (3.3-5.1) mmol/L Chloride (96-108) mmol/L Carbon Dioxide (22-29) mmol/L Anion Gap (12-20) BUN (9-16) mg/dL Creatinine (0.5-1.4) mg/dL Estim Creat Clear Calc Estimated GFR Random Glucose (60-115) mg/dL Lactic Acid (0.5-2.0) mmol/L Calcium (8.4-10.2) mg/dL Magnesium (1.6-2.6) mg/dL Ferritin (20-250) ng/mL Total Bilirubin (0.0-1.0) mg/dL Direct Bilirubin (0.0-0.5) mg/dL AST (5-37) U/L ALT (0-40) U/L Alkaline Phosphatase (39-117) U/L Lactate Dehydrogenase (118-273) U/L Troponin I High Sens 13.0 (<3.5-35.0) ng/L C-Reactive Protein (< or = 0.50) mg/dL Total Protein (6.5-8.0) g/dL Albumin (3.5-5.0) g/dL Lipase (8-78) U/L Influenza Type A (PCR) (Negative) Influenza Type B (PCR) (Negative) RSV RNA Qual (PCR) (Negative) SARS-CoV-2 RNA (RT-PCR) (Negative) 05/14/21 Range/Units 16:09 WBC 8.4 (4.8-10.8) X10*3/uL RBC 4.52 L (4.60-5.80) X10*6/uL Hgb 16.3 (14.0-18.0) g/dl Hct 50.1 (42.0-52.0) % MCV 110.8 H (80.0-98.0) fL MCH 36.1 H (27.0-33.0) pg MCHC 32.5 (31.0-36.0) g/dl RDW 16.2 H (11.0-16.0) % Plt Count 117 L (160-400) X10*3/uL MPV 9.6 (9.4-12.4) fL Immature Gran % (Auto) 0.6 H (0.0-0.4) % Neut % (Auto) 65.6 (45-73) % Lymph % (Auto) 27.5 (20-40) % Reagan % (Auto) 5.7 (2-11) % Eos % (Auto) 0.2 (0-4) % Baso % (Auto) 0.4 (0-2) % Lymph # (Auto) 2.3 (1.2-4.9) X10*3/uL Reagan # (Auto) 0.5 (0.1-1.2) X10*3/uL Eos # (Auto) 0.0 (0.0-0.4) X10*3/uL Baso # (Auto) 0.0 (0.0-0.2) X10*3/uL Abs Immat Gran (auto) 0.05 H (0.00-0.03) X10*3/uL Absolute Neuts (auto) 5.5 (2.0-8.3) x10*3/uL Absolute Nucleated RBC 0.000 (0.0-0.012) X10*3/uL Nucleated RBC % (auto) 0.0 (0.0-0.2) /100WBC Smear Tech's Comments VERIFIED VBG pH (7.32-7.43) VBG pCO2 mmHg VBG pO2 mmHg VBG HCO3 (22-26) mmol/L VBG O2 Saturation % VBG Base Excess mmol/L Sodium (135-145) mmol/L Potassium (3.3-5.1) mmol/L Chloride (96-108) mmol/L Carbon Dioxide (22-29) mmol/L Anion Gap (12-20) BUN (9-16) mg/dL Creatinine (0.5-1.4) mg/dL Estim Creat Clear Calc Estimated GFR Random Glucose (60-115) mg/dL Lactic Acid (0.5-2.0) mmol/L Calcium (8.4-10.2) mg/dL Magnesium (1.6-2.6) mg/dL Ferritin (20-250) ng/mL Total Bilirubin (0.0-1.0) mg/dL Direct Bilirubin (0.0-0.5) mg/dL AST (5-37) U/L ALT (0-40) U/L Alkaline Phosphatase (39-117) U/L Lactate Dehydrogenase (118-273) U/L Troponin I High Sens (<3.5-35.0) ng/L C-Reactive Protein (< or = 0.50) mg/dL Total Protein (6.5-8.0) g/dL Albumin (3.5-5.0) g/dL Lipase (8-78) U/L Influenza Type A (PCR) (Negative) Influenza Type B (PCR) (Negative) RSV RNA Qual (PCR) (Negative) SARS-CoV-2 RNA (RT-PCR) (Negative) ECG Data Attestation: I personally reviewed and interpreted this ECG as follows: ECG interpretation date: 05/14/21 ECG interpretation time: 14:36 Interpretation: Rate: 80 Rhythm: NSR [place]: normal Normal P waves. Normal MARY LOU. RBBB ST T wave : no JOSELIN, ST depression V3-V6 qTC: normal prior studies: no change from Mar 29 2021 The study has been interpreted contemporaneously by me. . Discharge Plan Discharge Clinical Impression: Hypoxia, Acute on chronic right-sided heart failure, Dyspnea, Chronic bronchitis Prescriptions: No Action albuterol sulfate 90 mcg/actuation HFA aerosol inhaler 2 puff inhalation Q4H PRN (Reason: shortness of breath or wheezing) Qty: 8.5 RF: 11 multivitamin Tablet 1 tab PO DAILY RF: 0 vitamin E 400 unit Capsule 400 unit PO DAILY RF: 0 cholecalciferol (vitamin D3) [Vitamin D3] 25 mcg (1,000 unit) Capsule 25 mcg PO DAILY RF: 0 furosemide 40 mg tablet 40 mg PO DAILY RF: 0 aspirin [Adult Low Dose Aspirin] 81 mg tablet,delayed release (DR/EC) 81 mg PO DAILY RF: 0 carvedilol 3.125 mg tablet 3.125 mg PO BID Qty: 180 RF: 4
[2021-05-14] MEDS: Albuterol Sulfate (0.083%) 2.5 MG/3 ML VIAL.NEB 5 MG INHALE (14:40)
--- NOTE | 2021-05-14 14:42 | PHA.MEDREC ---
Pharmacy Consult ? Medication Reconciliation Pharmacy has completed the medication reconciliation.Spoke with patient in the ED. Pt only taking Furosemide, Carvedilol and albuterol inhaler. He is not taking Breo inhaler or Omeprazole because they do not help him . Pt did not take any of his medications today.
[2021-05-14] MEDS: methylPREDNISolone Sod Succ 125 MG/2 ML VIAL IVPUSH (14:57)
[2021-05-14] MEDS: Furosemide 40 MG/4 ML VIAL IVPUSH ×2 (14:57→18:41)
[2021-05-14 15:21] LABS: Venous Blood Gas Refer to POC result
[2021-05-14 15:23] LABS: VBG HCO3 27 mmol/L (22-26); VBG pCO2 51 mmHg; VBG pH 7.34 (7.32-7.43); VBG pO2 35 mmHg
[2021-05-14 15:24] LABS: VBG HCO3 27 mmol/L (22-26); VBG pCO2 51 mmHg; VBG pH 7.34 (7.32-7.43); VBG pO2 35 mmHg
[2021-05-14 15:34] LABS: Alanine Aminotransferase 24 U/L (0-40); Alkaline Phosphatase 159 U/L (39-117); Anion Gap 15 (12-20); Aspartate Amino Transferase 30 U/L (5-37); Bilirubin Direct 1.4 mg/dL (0.0-0.5); Bilirubin Total 2.5 mg/dL (0.0-1.0); Blood Urea Nitrogen 29 mg/dL (9-16); C Reactive Protein 1.84 mg/dL (< or = 0.50); Calcium 9.2 mg/dL (8.4-10.2); Carbon Dioxide 27 mmol/L (22-29); Chloride 104 mmol/L (96-108); Creatinine Clr Calc Pharmacy 58.5; Estimated Glomerular Filt Rate > 60; Glucose Random 95 mg/dL (60-115); Lipase 54 U/L (8-78); Magnesium 2.3 mg/dL (1.6-2.6); Potassium 4.2 mmol/L (3.3-5.1); Sodium 142 mmol/L (135-145); Total Protein 7.2 g/dL (6.5-8.0)
[2021-05-14 15:37] LABS: Lactate Dehydrogenase 296 U/L (118-273)
[2021-05-14 15:41] LABS: Influenza A PCR NEGATIVE (Negative); Influenza B PCR NEGATIVE (Negative); Resp Syncy Virus RNA Qual PCR NEGATIVE (Negative); SARS COV2 PCR INHOUSE NEGATIVE (Negative)
[2021-05-14 15:52] LABS: Ferritin 326 ng/mL (20-250)
[2021-05-14 15:59] LABS: Lactic Acid 2.8 mmol/L (0.5-2.0)
[2021-05-14 16:17] LABS: Basophils Percent Auto 0.4 % (0-2); Eosinophils Percent Auto 0.2 % (0-4); Hematocrit 50.1 % (42.0-52.0); Hemoglobin 16.3 g/dl (14.0-18.0); Imm Gran Abs Auto 0.05 X10*3/uL (0.00-0.03); Imm Gran Pct Auto 0.6 % (0.0-0.4); Lymphocytes Absolute Auto 2.3 X10*3/uL (1.2-4.9); Lymphocytes Percent Auto 27.5 % (20-40); Mean Corpuscular HGB Conc 32.5 g/dl (31.0-36.0); Mean Corpuscular Hemoglobin 36.1 pg (27.0-33.0); Mean Platelet Volume 9.6 fL (9.4-12.4); Monocytes Absolute Auto 0.5 X10*3/uL (0.1-1.2); Monocytes Percent Auto 5.7 % (2-11); Neutrophils Absolute Auto 5.5 x10*3/uL (2.0-8.3); Neutrophils Percent Auto 65.6 % (45-73); Platelet Count 117 X10*3/uL (160-400); Red Blood Count 4.52 X10*6/uL (4.60-5.80); Red Cell Distribution Width 16.2 % (11.0-16.0); White Blood Count 8.4 X10*3/uL (4.8-10.8)
[2021-05-14 16:18] LABS: MANUAL DIFF FLAG SCAN; Mean Corpuscular Volume 110.8 fL (80.0-98.0)
[2021-05-14] MEDS: cefEPime HCl 2 GM in 0.9 % Sodium Chloride 50 ML IV (16:34)
[2021-05-14 16:36] LABS: SLIDE REVIEW VERIFIED
[2021-05-14 16:48] LABS: B Type Natriuretic Peptide 1571 pg/mL (<100); D Dimer High Sensitivity 502 NG/ML
[2021-05-14] MEDS: Azithromycin 500 MG in 0.9 % Sodium Chloride 250 ML 125 MG IV (16:55)
--- NOTE | 2021-05-14 17:13 | PM.IMHP ---
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 He was in his usual state of health when he became short of breath this morning. He has had a mild associated cough with no phlegm production. He denies any recent sick contacts. He has no associated fever or chills. He weighs himself daily and has not gained any weight over the past week and he follows a low-sodium diet. He denies any associated chest pain or palpitations. He initially went to urgent care clinic for a COVID test but did not bring his supplemental oxygen with him. In the office he was noted to be short of breath and he was sent to the emergency department for further workup. He is currently saturating 87-89% on 5 L. Work up in the ED revealed BNP elevated at 1571, lactic acid 2.8. He has been afebrile and no leukocytosis on cbc. Chest x-ray showed increased interstitial lung markings with broad differential but no dense focal consolidation. Testing for covid, rsv and flu were negative. Initially his blood pressure was as low as 86/60 but has since improved. He received a breathing treatment, IV Solu-Medrol, IV Lasix, empiric antibiotics. The decision was made to admit him for further management. <FABI Latif - Last Filed: 05/14/21 17:50> Review of Systems Review of Systems: Yes all other systems are reviewed and are negative <FABI Latif Last Filed: 05/14/21 17:50> Constitutional: Constitutional: Denies chills and Denies fever(s) <FABI Latif Last Filed: 05/14/21 17:50> Cardiovascular: Cardiovascular: Denies chest pain and Reports dyspnea <FABI Latif - Last Filed: 05/14/21 17:50> Respiratory: Respiratory: Reports dyspnea <FABI Latif - Last Filed: 05/14/21 17:50> Gastrointestinal: Gastrointestinal: Denies abdominal pain <FABI Latif - Last Filed: 05/14/21 17:50> [facility] Medical History: Medical History Chronic respiratory failure Chronic right heart failure COPD (chronic obstructive pulmonary disease) MOORE (dyspnea on exertion) Edema leg Emphysema lung Limb swelling NICM (nonischemic cardiomyopathy) Pulmonary fibrosis Pulmonary hypertension <FABI Latif - Last Filed: 05/14/21 17:50> Family History: Family History Father Cancer Mother Cancer <FABI Latif - Last Filed: 05/14/21 17:50> Surgical History: Surgical History History of inguinal hernia repair <FABI Latif - Last Filed: 05/14/21 17:50> Social History: Social History Household Members: Spouse Housing: House Alcohol intake: current Alcohol intake frequency: holidays/special occasions only Patient Tobacco Use Status: Former Tobacco user Cigarette Packs Per Day: 1 Cigarettes Per Day: 7 Years Smoked: 20 years Use of substances other than those prescribed or required for medical reasons: No Advance Directives: Yes Advance Directives on File: Yes Advance Directives Date on File: 03/30/21 service: Yes Current occupational status: retired <FABI Latif - Last Filed: 05/14/21 17:50> Meds Allergies/Adverse reactions: Allergies Allergy/AdvReac Type Severity Reaction Status Date / Time No Known Allergies Allergy Verified 03/29/21 11:51 [No Known Allergies*] <FABI Latif - Last Filed: 05/14/21 17:50> Active Medications: Current Medications Acetaminophen (Acetaminophen 325 Mg Tablet) 650 mg PO Q6H PRN PRN Reason: Pain, Mild (Pain Scale 1-3) Docusate Sodium (Docusate Sodium 100 Mg Capsule) 100 mg PO DAILY PRN PRN Reason: Constipation Enoxaparin Sodium (Enoxaparin Sodium 40 Mg/0.4 Ml Syringe) 40 mg SUBCUT Q24H REAGAN Furosemide (Furosemide 40 Mg/4 Ml Vial) 40 mg IVPUSH BID@0900,1800 REAGAN; Protocol Azithromycin 500 mg/ Sodium (Chloride) 250 mls @ 125 mls/hr IV ONCE ONE Stop: 05/14/21 18:29 Last Admin: 05/14/21 16:55 Dose: 125 mls/hr Documented by: Ondansetron HCl (Ondansetron Hcl 4 Mg/2 Ml Vial) 4 mg IVPUSH Q8H PRN PRN Reason: Nausea and Vomiting Pharmacy Consult (Consult Rx Perform Med Rec) 1 each MISCELLANE ONCE PRN PRN Reason: Consult order Sodium Chloride (0.9 % Sodium Chloride Flush 3 Ml Syringe) 3 ml IVFLUSH QSHIFT REAGAN <FABI Latif - Last Filed: 05/14/21 17:50> Home medications: Home Medications Medication Instructions Recorded Confirmed Last Taken Type aspirin 81 mg tablet,delayed 81 mg PO DAILY 06/09/20 05/14/21 05/13/21 History release (Adult Low Dose Aspirin) cholecalciferol (vitamin D3) 25 25 mcg PO DAILY 05/14/21 05/14/21 05/13/21 History mcg (1,000 unit) capsule (Vitamin D3) furosemide 40 mg tablet 40 mg PO DAILY 05/14/21 05/14/21 05/13/21 History multivitamin 1 tab PO DAILY 05/14/21 05/14/21 05/13/21 History vitamin E 400 unit capsule 400 unit PO DAILY 05/14/21 05/14/21 05/13/21 History <FABI Latif - Last Filed: 05/14/21 17:50> Physical Exam Vital Signs and Narrative: Vital Signs: Last Vital Signs Temp 97.8 F 05/14/21 15:24 Pulse 90 05/14/21 16:56 Resp 16 05/14/21 16:56 BP 116/66 05/14/21 16:56 Pulse Ox 90 L 05/14/21 16:56 Oxygen Flow Rate 5 05/14/21 16:37 BMI result Body Mass Index 23.5 <FABI Latif - Last Filed: 05/14/21 17:50> Const: General: cooperative, alert and awake <FABI Latif - Last Filed: 05/14/21 17:50> Nutritional Appearance: well nourished <FABI Latif - Last Filed: 05/14/21 17:50> Orientation/consciousness: patient oriented x3 <FABI Latif - Last Filed: 05/14/21 17:50> HENMT: Head: Yes normocephalic and Yes atraumatic <FABI Latif - Last Filed: 05/14/21 17:50> Eyes: Sclerae: sclerae normal <FABI Latif - Last Filed: 05/14/21 17:50> Neck: Yes JVD <FABI Latif - Last Filed: 05/14/21 17:50> Resp: Other: dry rales b/l bases, diminished breath sounds, no wheezing <FABI Latif - Last Filed: 05/14/21 17:50> Effort & Inspection: tachypneic <FABI Latif - Last Filed: 05/14/21 17:50> Cardio: Jugular venous distension: JVD <FABI Latif - Last Filed: 05/14/21 17:50> Rate: regular rate <FABI Latif - Last Filed: 05/14/21 17:50> Rhythm: regular rhythm <FABI Latif - Last Filed: 05/14/21 17:50> GI: Palpation (GI): Soft to palpation and nontender <FABI Latif - Last Filed: 05/14/21 17:50> Neuro: General: patient oriented x3 <FABI Latif - Last Filed: 05/14/21 17:50> Cranial nerves: Yes CN's II-XII intact bilaterally and Yes Bilaterally intact EOM present <FABI Latif - Last Filed: 05/14/21 17:50> Extrem: Other: fingertips dusky, clubbing of fingers noted; b/l lower extremity edema 2+ <FABI Latif - Last Filed: 05/14/21 17:50> Results Labs CBC and Chem 7: : 05/14/21 16:09 05/14/21 15:08 <FABI Latif - Last Filed: 05/14/21 17:50> Labs: Laboratory Results - last 24 hr 05/14/21 05/14/21 05/14/21 14:50 15:08 15:08 MCV MCH MCHC RDW Plt Count MPV Immature Gran % (Auto) Neut % (Auto) Lymph % (Auto) [place] % (Auto) Eos % (Auto) Baso % (Auto) Lymph # (Auto) [place] # (Auto) Eos # (Auto) Baso # (Auto) Abs Immat Gran (auto) Absolute Neuts (auto) Absolute Nucleated RBC Nucleated RBC % (auto) Smear Tech's Comments D-Dimer High Sensitivty VBG pH VBG pCO2 VBG pO2 VBG HCO3 VBG O2 Saturation VBG Base Excess Anion Gap 15 Estim Creat Clear Calc 58.5 Estimated GFR > 60 Random Glucose 95 D Lactic Acid 2.8 H* Calcium 9.2 Magnesium 2.3 Ferritin 326 H Total Bilirubin 2.5 H Direct Bilirubin 1.4 H AST 30 ALT 24 Alkaline Phosphatase 159 H Lactate Dehydrogenase 296 H Troponin I High Sens C-Reactive Protein 1.84 H B-Natriuretic Peptide Total Protein 7.2 Albumin 4.0 Lipase 54 Influenza Type A (PCR) NEGATIVE Influenza Type B (PCR) NEGATIVE RSV RNA Qual (PCR) NEGATIVE SARS-CoV-2 RNA (RT-PCR) NEGATIVE 05/14/21 05/14/21 05/14/21 15:08 15:08 15:16 MCV MCH MCHC RDW Plt Count MPV Immature Gran % (Auto) Neut % (Auto) Lymph % (Auto) [place] % (Auto) Eos % (Auto) Baso % (Auto) Lymph # (Auto) [place] # (Auto) Eos # (Auto) Baso # (Auto) Abs Immat Gran (auto) Absolute Neuts (auto) Absolute Nucleated RBC Nucleated RBC % (auto) Smear Tech's Comments D-Dimer High Sensitivty VBG pH 7.34 7.34 VBG pCO2 51 51 VBG pO2 35 35 VBG HCO3 27 H 27 H VBG O2 Saturation 43.0 43.0 VBG Base Excess 1.0 1.0 Anion Gap Estim Creat Clear Calc Estimated GFR Random Glucose Lactic Acid Calcium Magnesium Ferritin Total Bilirubin Direct Bilirubin AST ALT Alkaline Phosphatase Lactate Dehydrogenase Troponin I High Sens 13.0 C-Reactive Protein B-Natriuretic Peptide Total Protein Albumin Lipase Influenza Type A (PCR) Influenza Type B (PCR) RSV RNA Qual (PCR) SARS-CoV-2 RNA (RT-PCR) 05/14/21 05/14/21 05/14/21 16:09 16:21 16:21 MCV 110.8 H MCH 36.1 H MCHC 32.5 RDW 16.2 H Plt Count 117 L MPV 9.6 Immature Gran % (Auto) 0.6 H Neut % (Auto) 65.6 Lymph % (Auto) 27.5 [place] % (Auto) 5.7 Eos % (Auto) 0.2 Baso % (Auto) 0.4 Lymph # (Auto) 2.3 [place] # (Auto) 0.5 Eos # (Auto) 0.0 Baso # (Auto) 0.0 Abs Immat Gran (auto) 0.05 H Absolute Neuts (auto) 5.5 Absolute Nucleated RBC 0.000 Nucleated RBC % (auto) 0.0 Smear Tech's Comments VERIFIED D-Dimer High Sensitivty 502 VBG pH VBG pCO2 VBG pO2 VBG HCO3 VBG O2 Saturation VBG Base Excess Anion Gap Estim Creat Clear Calc Estimated GFR Random Glucose Lactic Acid Calcium Magnesium Ferritin Total Bilirubin Direct Bilirubin AST ALT Alkaline Phosphatase Lactate Dehydrogenase Troponin I High Sens C-Reactive Protein B-Natriuretic Peptide 1571 H Total Protein Albumin Lipase Influenza Type A (PCR) Influenza Type B (PCR) RSV RNA Qual (PCR) SARS-CoV-2 RNA (RT-PCR) <FABI Latif - Last Filed: 05/14/21 17:50> Imaging Radiologist's Impressions: Impressions Chest X-Ray 05/14/21 16:25 IMPRESSION: Slightly increased diffuse increased interstitial lung marking and peribronchial cuffing might be a small airway disease such as bronchiolitis or interstitial pneumonitis, versus interstitial lung disease versus interstitial edema. No dense focal consolidation pneumonia. <FABI Latif - Last Filed: 05/14/21 17:50> Assessment and Plan (1) Cor pulmonale: Status: Acute <FABI Latif - Last Filed: 05/14/21 17:50> (2) Acute and chronic respiratory failure with hypoxia: Status: Acute <FABI Latif - Last Filed: 05/14/21 17:50> This is a 75-year-old male history combined pulmonary emphysema and fibrosis on 4 L supplemental oxygen with activity, cor pulmonale, NSVT who presents to the ED with shortness of breath Acute on chronic respiratory failure with hypoxia Related to acute on chronic right-sided heart failure on a background of severe lung disease Did not use oxygen with exertion as prescribed which is likely contributing factor Afebrile, no leukocytosis to suggest infection Covid/flu/RSV negative lactic acid elevated from hypoxia not sepsis Acute on chronic right sided heart failure echo from 05/10 shows severely increased right ventricular cavity size, moderately decreased right ventricular systolic function, severe pulmonary hypertension. LVEF 57% BNP 1571 IV lasix 40 bid monitor Is&Os follow electrolytes elevated bili chronic and not related to sepsis h/o NSVT electrolytes wnl BB on hold due to hypotention dvt ppx - lovenox code status - full code attending - dr. linton <FABI Latif - Last Filed: 05/14/21 17:50> Quality Stroke Does the patient have a stroke diagnosis?: No <FABI Latif - Last Filed: 05/14/21 17:50> VTE Prior VTE?: No <FABI Latif - Last Filed: 05/14/21 17:50> VTE Risk Level:: Medical - moderate - high <FABI Latif - Last Filed: 05/14/21 17:50> VTE Device Contraindication: Treatment Not Indicated <FABI Latif - Last Filed: 05/14/21 17:50> VTE Drug Contraindication: N/A - Med Ordered <FABI Latif - Last Filed: 05/14/21 17:50>
[2021-05-14 17:14] LABS: Reflex Lactate? Lactic Acid Added
[2021-05-14 17:52] LABS: ~Lactic Acid-LAB USE ONLY 3.5 mmol/L (0.5-2.0)
[2021-05-14 18:20] LABS: Procalcitonin 0.03 ng/mL
[2021-05-14] MEDS: Enoxaparin Sodium 40 MG/0.4 ML SYRINGE SUBCUT (18:41)
--- NOTE | 2021-05-14 18:49 | P.EN_ITS ---
Event Note Date of Service: 05/14/21 Event Note: Patient came to the hospital because shortness of breath progres sive worsening, he was not using his oxygen at home and when he went for COVID tested today he was not use getting his oxygen with him and become more hypoxic there- came to the hospital for further evaluation has leg swelling, he says that he drinks lot of water but when asked he only could able to tell that he drinks 16 oz bottle of water x2. denies any fevers has basleine cough BNP 1571 mild lactic acidosis sec to nebs. cxr: ? fluid overload vs pneumonitis procalcitoninlevels low blood culture sent ddimer order by chance by Ed -elevated but lower than previous , dvt study lower ext neg ekg seems similar to before. troponine fine Physical exam: Appearance: Alert.? Oriented X3.? not in distress.? Eyes: Pupils equal, round and reactive to light.? Sclera nonicteric.? ENT: Pharynx normal.? Moist mucous membranes. cvs: rrr, [id number] , no murmur res: clear to auscultation ,no rhonchii or wheezing abd: no rebound or guarding ,nt, bs present. ext pulses present , no cyanosis ,Gait well balanced well coordinated. neuro: axo3 , nonfocal. Assessment and plan coordinated in H&P note CHF exacerbation: continue current management including Lasix Even though BNP is seems better than before COPD: No wheezing currently. duoneb change to ipratropium due to lactic acidosis. if shortness of breath worsens- will consider further workup, currently D- dimer is lower than previous value and DVT of lower extremity negative , also patient D-dimer ordered by chance as per ED . Chest x-ray shows evidence of pulmonary edema versus pneumonitis patient was initially given antibiotics cefepime and azithromycin also but her is procalcitonin level are low. not septic. will repeat chest x-ray in 1 days of after diuresis.
[2021-05-14 19:37] LABS: Reflex Lactate? 2 Y
[2021-05-14] MEDS: Ipratropium Bromide 0.5 MG/2.5 ML SOLUTION INHALE (19:41)
[2021-05-14 20:27] LABS: ~Lactic Acid-LAB USE ONLY 3.3 mmol/L (0.5-2.0)
[2021-05-15] VITALS (11 sets, daily range): BP systolic 95–124; BP diastolic 59–78; PULSE 79–93; RESP 15–20; TEMP 36.1–36.6; O2SAT 91–97
[2021-05-15 06:55] LABS: MANUAL DIFF FLAG NO
[2021-05-15 07:02] LABS: Basophils Percent Auto 0.1 % (0-2); Hematocrit 42.8 % (42.0-52.0); Hemoglobin 14.4 g/dl (14.0-18.0); Imm Gran Abs Auto 0.04 X10*3/uL (0.00-0.03); Imm Gran Pct Auto 0.5 % (0.0-0.4); Lymphocytes Absolute Auto 0.9 X10*3/uL (1.2-4.9); Lymphocytes Percent Auto 10.8 % (20-40); Mean Corpuscular HGB Conc 33.6 g/dl (31.0-36.0); Mean Corpuscular Hemoglobin 36.2 pg (27.0-33.0); Mean Corpuscular Volume 107.5 fL (80.0-98.0); Mean Platelet Volume 9.6 fL (9.4-12.4); Monocytes Absolute Auto 0.2 X10*3/uL (0.1-1.2); Monocytes Percent Auto 2.8 % (2-11); Neutrophils Absolute Auto 7.1 x10*3/uL (2.0-8.3); Neutrophils Percent Auto 85.8 % (45-73); Platelet Count 119 X10*3/uL (160-400); Red Blood Count 3.98 X10*6/uL (4.60-5.80); Red Cell Distribution Width 15.8 % (11.0-16.0); White Blood Count 8.3 X10*3/uL (4.8-10.8)
--- NOTE | 2021-05-15 07:12 | PC.NURSE ---
pt came to the ed waiting room and the pt black wallet was given to his at the pt request. is aware that there are no visitors to the hospital.
[2021-05-15 07:13] LABS: Anion Gap 16 (12-20); Blood Urea Nitrogen 26 mg/dL (9-16); Calcium 8.7 mg/dL (8.4-10.2); Carbon Dioxide 25 mmol/L (22-29); Chloride 106 mmol/L (96-108); Creatinine Clr Calc Pharmacy 67.5; Estimated Glomerular Filt Rate > 60; Glucose Random 110 mg/dL (60-115); Potassium 4.5 mmol/L (3.3-5.1); Sodium 142 mmol/L (135-145)
[2021-05-15] MEDS: Cholecalciferol (Vitamin D3) 25 MCG TABLET PO (08:57)
[2021-05-15] MEDS: Multivitamin TABLET 1 TAB PO (08:57)
[2021-05-15] MEDS: Furosemide 40 MG/4 ML VIAL IVPUSH ×2 (08:57→16:26)
[2021-05-15] MEDS: Aspirin Enteric Coated 81 MG TABLET.DR PO (08:57)
[2021-05-15] MEDS: 0.9 % Sodium Chloride Flush 3 ML SYRINGE IVFLUSH ×3 (08:58→21:57)
--- NOTE | 2021-05-15 09:42 | MHC.CM.PN ---
pt in ed overflow called and spoke with pts who explins that prior to admisison that she and her had no servcies at home pt was on home 02 ,she mentions that pt has a hcp and was asked to briing in..she is very un happy about pt not being in a room by the time of this c all ..dc plan at this time is home no servceis to transport
--- NOTE | 2021-05-15 11:23 | PC.NURSE ---
pt's leonela brought pt's phone and field operations farm manager in for him to use.
--- NOTE | 2021-05-15 11:25 | PC.NURSE ---
powder room attendant at bedside pt aware of adenike of care.
--- NOTE | 2021-05-15 12:15 | PM.CNCAR ---
History of Present Illness History of Present Illness Date of Service: 05/15/21 Requesting physician: Denisse Valdez Chief complaint: Shortness of breath/chf Narrative: 75-year-old gentleman who has background history of COPD, interstitial lung disease and cor pulmonale follows with Dr. Palacios. He is here for shortness of breath. It appears he was short of breath and went to urgent care. It appears he was not using his oxygen. He has advanced lung disease and right ventricular dysfunction. Recently was admitted at [facility] and was diuresed for right heart failure. Is chronic crackles which would due to disease. Overall he is feeling fine at this point. He was given IV diuretics. [facility] Past Medical History Medical History Chronic respiratory failure Chronic right heart failure COPD (chronic obstructive pulmonary disease) MOORE (dyspnea on exertion) Edema leg Emphysema lung Limb swelling NICM (nonischemic cardiomyopathy) Pulmonary fibrosis Pulmonary hypertension Family History Family History Father Cancer Mother Cancer Surgical History Surgical History History of inguinal hernia repair Social History Social History Household Members: Spouse Housing: House Alcohol intake: current Alcohol intake frequency: holidays/special occasions only Patient Tobacco Use Status: Former Tobacco user Cigarette Packs Per Day: 1 Cigarettes Per Day: 7 Years Smoked: 20 years Use of substances other than those prescribed or required for medical reasons: No Advance Directives: Yes Advance Directives on File: Yes Advance Directives Date on File: 03/30/21 service: Yes Current occupational status: retired Meds Allergies Allergy/AdvReac Type Severity Reaction Status Date / Time No Known Allergies Allergy Verified 03/29/21 11:51 [No Known Allergies*] Active Medications: Current Medications Acetaminophen (Acetaminophen 325 Mg Tablet) 650 mg PO Q6H PRN PRN Reason: Pain, Mild (Pain Scale 1-3) Aspirin (Aspirin Enteric Coated 81 Mg Tablet.) 81 mg PO DAILY REAGAN Last Admin: 05/15/21 08:57 Dose: 81 mg Documented by: Docusate Sodium (Docusate Sodium 100 Mg Capsule) 100 mg PO DAILY PRN PRN Reason: Constipation Enoxaparin Sodium (Enoxaparin Sodium 40 Mg/0.4 Ml Syringe) 40 mg SUBCUT Q24H [facility] Last Admin: 05/14/21 18:41 Dose: 40 mg Documented by: Furosemide (Furosemide 40 Mg/4 Ml Vial) 40 mg IVPUSH BID@0900,1800 [facility]; Protocol Last Admin: 05/15/21 08:57 Dose: 40 mg Documented by: Ipratropium [place] (Ipratropium [place] 0.5 Mg/2.5 Ml Solution) 0.5 mg INHALE RQ4H WHILE AWAKE [facility] Last Admin: 05/15/21 11:28 Dose: Not Given Documented by: Multivitamins/Vitamin C (Multivitamin Tablet) 1 tab PO DAILY [facility] Last Admin: 05/15/21 08:57 Dose: 1 tab Documented by: Ondansetron HCl (Ondansetron Hcl 4 Mg/2 Ml Vial) 4 mg IVPUSH Q8H PRN PRN Reason: Nausea and Vomiting Pharmacy Consult (Consult Rx Perform Med Rec) 1 each MISCELLANE ONCE PRN PRN Reason: Consult order Sodium Chloride (0.9 % Sodium Chloride Flush 3 Ml Syringe) 3 ml IVFLUSH QSHIFT [facility] Last Admin: 05/15/21 08:58 Dose: 3 ml Documented by: Vitamin D (Cholecalciferol (Vitamin D3) 25 Mcg Tablet) 25 mcg PO DAILY [facility] Last Admin: 05/15/21 08:57 Dose: 25 mcg Documented by: Home Medications Medication Instructions Recorded Confirmed Last Taken Type aspirin 81 mg tablet,delayed 81 mg PO DAILY 06/09/20 05/14/21 05/13/21 History release (Adult Low Dose Aspirin) cholecalciferol (vitamin D3) 25 25 mcg PO DAILY 05/14/21 05/14/21 05/13/21 History mcg (1,000 unit) capsule (Vitamin D3) furosemide 40 mg tablet 40 mg PO DAILY 05/14/21 05/14/21 05/13/21 History multivitamin 1 tab PO DAILY 05/14/21 05/14/21 05/13/21 History vitamin E 400 unit capsule 400 unit PO DAILY 05/14/21 05/14/21 05/13/21 History Physical Exam Vital Signs: Vital Signs: Last Vital Signs Temp 97.8 F 05/15/21 11:21 Pulse 80 05/15/21 11:21 Resp 16 05/15/21 11:21 BP 118/75 05/15/21 11:21 Pulse Ox 97 05/15/21 11:21 Oxygen Flow Rate 5 05/14/21 16:37 BMI result Body Mass Index 23.5 GENERAL APPEARANCE: in no acute distress, pleasant. NECK: no carotid bruit.? Elevated JVD with prominent V-wave. SKIN: no suspicious lesions, warm and dry. HEART:? Pansystolic murmur left sternal border, regular rate and rhythm. LUNGS: Fine crackles at bases. ABDOMEN: soft, nontender. EXTREMITIES: No significant edema. PERIPHERAL PULSES: equal. NEUROLOGIC: No gross deficits, AAO X 3 Objective Labs and Meds Result diagrams: 05/15/21 06:38 05/15/21 06:38 Lab results: Laboratory Results - last 24 hr 05/14/21 05/14/21 05/14/21 14:50 15:08 15:08 WBC RBC Hgb Hct MCV MCH MCHC RDW Plt Count MPV Immature Gran % (Auto) Neut % (Auto) Lymph % (Auto) [place] % (Auto) Eos % (Auto) Baso % (Auto) Lymph # (Auto) [place] # (Auto) Eos # (Auto) Baso # (Auto) Abs Immat Gran (auto) Absolute Neuts (auto) Absolute Nucleated RBC Nucleated RBC % (auto) Smear Tech's Comments D-Dimer High Sensitivty VBG pH VBG pCO2 VBG pO2 VBG HCO3 VBG O2 Saturation VBG Base Excess Sodium 142 Potassium 4.2 Chloride 104 Carbon Dioxide 27 Anion Gap 15 BUN 29 H Creatinine 1.05 Estim Creat Clear Calc 58.5 Estimated GFR > 60 Random Glucose 95 D Lactic Acid 2.8 H* Lactic Acid F/U @ 2Hr Lactic Acid F/U @ 4Hr Calcium 9.2 Magnesium 2.3 Ferritin 326 H Total Bilirubin 2.5 H Direct Bilirubin 1.4 H AST 30 ALT 24 Alkaline Phosphatase 159 H Lactate Dehydrogenase 296 H Troponin I High Sens C-Reactive Protein 1.84 H B-Natriuretic Peptide Total Protein 7.2 Albumin 4.0 Lipase 54 Procalcitonin Influenza Type A (PCR) NEGATIVE Influenza Type B (PCR) NEGATIVE RSV RNA Qual (PCR) NEGATIVE SARS-CoV-2 RNA (RT-PCR) NEGATIVE 05/14/21 05/14/21 05/14/21 15:08 15:08 15:08 WBC RBC Hgb Hct MCV MCH MCHC RDW Plt Count MPV Immature Gran % (Auto) Neut % (Auto) Lymph % (Auto) [place] % (Auto) Eos % (Auto) Baso % (Auto) Lymph # (Auto) [place] # (Auto) Eos # (Auto) Baso # (Auto) Abs Immat Gran (auto) Absolute Neuts (auto) Absolute Nucleated RBC Nucleated RBC % (auto) Smear Tech's Comments D-Dimer High Sensitivty VBG pH 7.34 VBG pCO2 51 VBG pO2 35 VBG HCO3 27 H VBG O2 Saturation 43.0 VBG Base Excess 1.0 Sodium Potassium Chloride Carbon Dioxide Anion Gap BUN Creatinine Estim Creat Clear Calc Estimated GFR Random Glucose Lactic Acid Lactic Acid F/U @ 2Hr Lactic Acid F/U @ 4Hr Calcium Magnesium Ferritin Total Bilirubin Direct Bilirubin AST ALT Alkaline Phosphatase Lactate Dehydrogenase Troponin I High Sens 13.0 C-Reactive Protein B-Natriuretic Peptide Total Protein Albumin Lipase Procalcitonin 0.03 Influenza Type A (PCR) Influenza Type B (PCR) RSV RNA Qual (PCR) SARS-CoV-2 RNA (RT-PCR) 05/14/21 05/14/21 05/14/21 15:16 16:09 16:21 WBC 8.4 RBC 4.52 L Hgb 16.3 Hct 50.1 MCV 110.8 H MCH 36.1 H MCHC 32.5 RDW 16.2 H Plt Count 117 L MPV 9.6 Immature Gran % (Auto) 0.6 H Neut % (Auto) 65.6 Lymph % (Auto) 27.5 [place] % (Auto) 5.7 Eos % (Auto) 0.2 Baso % (Auto) 0.4 Lymph # (Auto) 2.3 [place] # (Auto) 0.5 Eos # (Auto) 0.0 Baso # (Auto) 0.0 Abs Immat Gran (auto) 0.05 H Absolute Neuts (auto) 5.5 Absolute Nucleated RBC 0.000 Nucleated RBC % (auto) 0.0 Smear Tech's Comments VERIFIED D-Dimer High Sensitivty 502 VBG pH 7.34 VBG pCO2 51 VBG pO2 35 VBG HCO3 27 H VBG O2 Saturation 43.0 VBG Base Excess 1.0 Sodium Potassium Chloride Carbon Dioxide Anion Gap BUN Creatinine Estim Creat Clear Calc Estimated GFR Random Glucose Lactic Acid Lactic Acid F/U @ 2Hr Lactic Acid F/U @ 4Hr Calcium Magnesium Ferritin Total Bilirubin Direct Bilirubin AST ALT Alkaline Phosphatase Lactate Dehydrogenase Troponin I High Sens C-Reactive Protein B-Natriuretic Peptide Total Protein Albumin Lipase Procalcitonin Influenza Type A (PCR) Influenza Type B (PCR) RSV RNA Qual (PCR) SARS-CoV-2 RNA (RT-PCR) 05/14/21 05/14/21 05/14/21 16:21 17:34 20:00 WBC RBC Hgb Hct MCV MCH MCHC RDW Plt Count MPV Immature Gran % (Auto) Neut % (Auto) Lymph % (Auto) [place] % (Auto) Eos % (Auto) Baso % (Auto) Lymph # (Auto) [place] # (Auto) Eos # (Auto) Baso # (Auto) Abs Immat Gran (auto) Absolute Neuts (auto) Absolute Nucleated RBC Nucleated RBC % (auto) Smear Tech's Comments D-Dimer High Sensitivty VBG pH VBG pCO2 VBG pO2 VBG HCO3 VBG O2 Saturation VBG Base Excess Sodium Potassium Chloride Carbon Dioxide Anion Gap BUN Creatinine Estim Creat Clear Calc Estimated GFR Random Glucose Lactic Acid Lactic Acid F/U @ 2Hr 3.5 H* Lactic Acid F/U @ 4Hr 3.3 H* Calcium Magnesium Ferritin Total Bilirubin Direct Bilirubin AST ALT Alkaline Phosphatase Lactate Dehydrogenase Troponin I High Sens C-Reactive Protein B-Natriuretic Peptide 1571 H Total Protein Albumin Lipase Procalcitonin Influenza Type A (PCR) Influenza Type B (PCR) RSV RNA Qual (PCR) SARS-CoV-2 RNA (RT-PCR) 05/15/21 05/15/21 06:38 06:38 WBC 8.3 RBC 3.98 L Hgb 14.4 Hct 42.8 MCV 107.5 H MCH 36.2 H MCHC 33.6 RDW 15.8 Plt Count 119 L MPV 9.6 Immature Gran % (Auto) 0.5 H Neut % (Auto) 85.8 H Lymph % (Auto) 10.8 L [place] % (Auto) 2.8 Eos % (Auto) 0.0 Baso % (Auto) 0.1 Lymph # (Auto) 0.9 L [place] # (Auto) 0.2 Eos # (Auto) 0.0 Baso # (Auto) 0.0 Abs Immat Gran (auto) 0.04 H Absolute Neuts (auto) 7.1 Absolute Nucleated RBC 0.000 Nucleated RBC % (auto) 0.0 Smear Tech's Comments D-Dimer High Sensitivty VBG pH VBG pCO2 VBG pO2 VBG HCO3 VBG O2 Saturation VBG Base Excess Sodium 142 Potassium 4.5 Chloride 106 Carbon Dioxide 25 Anion Gap 16 BUN 26 H Creatinine 0.91 Estim Creat Clear Calc 67.5 Estimated GFR > 60 Random Glucose 110 Lactic Acid Lactic Acid F/U @ 2Hr Lactic Acid F/U @ 4Hr Calcium 8.7 Magnesium Ferritin Total Bilirubin Direct Bilirubin AST ALT Alkaline Phosphatase Lactate Dehydrogenase Troponin I High Sens C-Reactive Protein B-Natriuretic Peptide Total Protein Albumin Lipase Procalcitonin Influenza Type A (PCR) Influenza Type B (PCR) RSV RNA Qual (PCR) SARS-CoV-2 RNA (RT-PCR) Imaging Radiologist's impression: Impressions Chest X-Ray 05/14/21 16:25 IMPRESSION: Slightly increased diffuse increased interstitial lung marking and peribronchial cuffing might be a small airway disease such as bronchiolitis or interstitial pneumonitis, versus interstitial lung disease versus interstitial edema. No dense focal consolidation pneumonia. Venous Duplex 05/14/21 17:29 IMPRESSION: No DVT demonstrated in the bilateral lower extremity. Assessment and Plan (1) Dyspnea: Qualifiers: Dyspnea type: dyspnea on exertion Qualified Code(s): R06.00 - Dyspnea, unspecified Status: Acute (2) Cor pulmonale: Status: Acute 75-year-old gentleman who has COPD, interstitial lung disease and cor pulmonale. He was not using his oxygen and has shortness of breath. Was also noticed to be hypotensive when he came in. Hypoxia leads to pulmonary vasoconstriction and can elevate pulmonary pressures. With severe RV dysfunction this can lead to dizziness and syncope in patients and can also lead to dyspnea. I think it is important that he uses oxygen regularly. Overall does not look overloaded. He has tricuspid valve regurgitation and prominent V-waves on neck examination and his neck veins may appear distended all the time due to that. Volume status assessment is challenging due to this but he does not have any peripheral edema which was present in March and does not appear to be in congestive heart failure clinically. Thank you for allowing me to participate in the care of your patient. Please feel free to contact me if you have any questions. Procedures Date of Service Date of Service: 05/15/21
--- NOTE | 2021-05-15 12:59 | PC.NURSE ---
rn to rn report given to maria brown aware of plan of care.
--- NOTE | 2021-05-15 14:21 | P.DS_ITS ---
DS: Providers Provider Date of Service: 05/15/21 Date of admission: 05/14/21 17:06 Date of discharge: 05/15/21 Primary care physician: Odilon Llanes MD Consults: 05/15/21 09:40 Consult to Cardiology Routine Consulting Provider: Jose Griggs Reason for consultation: chf Has provider been notified: No [facility] clinician: Denisse Valdez DS: Diagnosis Discharge Diagnosis (1) Acute and chronic respiratory failure with hypoxia: Status: Acute (2) Acute on chronic right-sided heart failure: Status: Acute DS: Summary Hospital Course Hospital Course: From H&P on day of admission This is a 75 year male with 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 He was in his usual state of health when he became short of breath this morning.? He has had a mild associated cough with no phlegm production.? He denies any recent sick contacts.? He has no associated fever or chills.? He weighs himself daily and has not gained any weight over the past week and he follows a low-sodium diet.? He denies any associated chest pain or palpitations.? He initially went to urgent care clinic for a COVID test but did not bring his supplemental oxygen with him.? In the office he was noted to be short of breath and he was sent to the emergency department for further workup.? He is currently saturating 87-89% on 5 L. Work up in the ED revealed BNP elevated at 1571, lactic acid 2.8. He has been afebrile and no leukocytosis on cbc.? Chest x-ray showed increased interstitial lung markings with broad differential but no dense focal consolidation. Testing for covid, rsv and flu were negative. Initially his blood pressure was as low as 86/60 but has since improved.? He received a breathing treatment, IV Solu-Medrol, IV Lasix, empiric antibiotics.? The decision was made to admit him for further management. Acute on chronic respiratory failure with hypoxia secondary to acute on chronic right heart failure in the setting of severe underlying lung disease Patient reported onset of shortness of breath yesterday. He went to urgent care clinic without using his supplemental oxygen. He was sent to the emergency dep artment for hypoxia. He appeared to be mildly fluid overloaded on arrival and was also hypotensive. He was placed on oxygen and his symptoms and blood pressure improved. He received IV Lasix, empiric antibiotics as well as steroids. He had no wheezing on physical exam. His BNP was elevated but within his normal baseline. He was admitted to the hospital and treated with IV Lasix. He was seen in consultation by Cardiology who felt that he had already improved with diuresis and his symptoms may have been brought on from hypoxia related to non-compliance with supplemental oxygen. Hypoxia leads to pulmonary vasoconstriction and can elevate pulmonary pressures.? With severe RV dysfunction this can lead to dizziness and syncope in patients and can also lead to dyspnea.? The important of using his oxygen regularly was discussed.?Of note, he has tricuspid valve regurgitation and prominent V-waves on neck examination and his neck veins may appear distended all the time due to that.?His leg edema has improved, his breathing has improved on his baseline oxygen. He had home oxygen evaluation prior to discharge, he will be on 3-4 liters at baseline and up to 6 liters with activity. Time Spent with Patient Time attestation: Total time spent providing and/or coordinating discharge services: Discharge coordination time: Greater than 30 minutes Quality: Stroke Does the patient have a stroke diagnosis?: No Physical Exam Vital Signs: Vital Signs: Last Vital Signs Temp 97.0 F 05/15/21 14:01 Pulse 87 05/15/21 14:01 Resp 18 05/15/21 14:01 BP 115/75 05/15/21 14:01 Pulse Ox 93 05/15/21 14:01 Oxygen Flow Rate 5 05/14/21 16:37 BMI result Body Mass Index 23.5 Const: General: cooperative, alert and awake Nutritional Appearance: well nourished Orientation/consciousness: patient oriented x3 HENMT: Head: Yes normocephalic and Yes atraumatic Eyes: Sclerae: sclerae normal Neck: Neck: Yes JVD Resp: Other: dry rales b/l bases, diminished breath sounds, no wheezing Effort & Inspection: tachypneic Cardio: Jugular venous distension: JVD Rate: regular rate Rhythm: regular rhythm GI: Palpation (GI): Soft to palpation and nontender Neuro: General: patient oriented x3 Cranial nerves: Yes CN's II-XII intact bilaterally and Yes Bilaterally intact EOM present Extrem: Other: clubbing of fingers noted; b/l lower extremity edema improved DS: Data Data Completed and Pending Labs on day of discharge: Laboratory Results - last 24 hr 05/14/21 05/14/21 05/14/21 14:50 15:08 15:08 WBC RBC Hgb Hct MCV MCH MCHC RDW Plt Count MPV Immature Gran % (Auto) Neut % (Auto) Lymph % (Auto) [place] % (Auto) Eos % (Auto) Baso % (Auto) Lymph # (Auto) [place] # (Auto) Eos # (Auto) Baso # (Auto) Abs Immat Gran (auto) Absolute Neuts (auto) Absolute Nucleated RBC Nucleated RBC % (auto) Smear Tech's Comments D-Dimer High Sensitivty VBG pH VBG pCO2 VBG pO2 VBG HCO3 VBG O2 Saturation VBG Base Excess Sodium 142 Potassium 4.2 Chloride 104 Carbon Dioxide 27 Anion Gap 15 BUN 29 H Creatinine 1.05 Estim Creat Clear Calc 58.5 Estimated GFR > 60 Random Glucose 95 D Lactic Acid 2.8 H* Lactic Acid F/U @ 2Hr Lactic Acid F/U @ 4Hr Calcium 9.2 Magnesium 2.3 Ferritin 326 H Total Bilirubin 2.5 H Direct Bilirubin 1.4 H AST 30 ALT 24 Alkaline Phosphatase 159 H Lactate Dehydrogenase 296 H Troponin I High Sens C-Reactive Protein 1.84 H B-Natriuretic Peptide Total Protein 7.2 Albumin 4.0 Lipase 54 Procalcitonin Influenza Type A (PCR) NEGATIVE Influenza Type B (PCR) NEGATIVE RSV RNA Qual (PCR) NEGATIVE SARS-CoV-2 RNA (RT-PCR) NEGATIVE 05/14/21 05/14/21 05/14/21 15:08 15:08 15:08 WBC RBC Hgb Hct MCV MCH MCHC RDW Plt Count MPV Immature Gran % (Auto) Neut % (Auto) Lymph % (Auto) [place] % (Auto) Eos % (Auto) Baso % (Auto) Lymph # (Auto) [place] # (Auto) Eos # (Auto) Baso # (Auto) Abs Immat Gran (auto) Absolute Neuts (auto) Absolute Nucleated RBC Nucleated RBC % (auto) Smear Tech's Comments D-Dimer High Sensitivty VBG pH 7.34 VBG pCO2 51 VBG pO2 35 VBG HCO3 27 H VBG O2 Saturation 43.0 VBG Base Excess 1.0 Sodium Potassium Chloride Carbon Dioxide Anion Gap BUN Creatinine Estim Creat Clear Calc Estimated GFR Random Glucose Lactic Acid Lactic Acid F/U @ 2Hr Lactic Acid F/U @ 4Hr Calcium Magnesium Ferritin Total Bilirubin Direct Bilirubin AST ALT Alkaline Phosphatase Lactate Dehydrogenase Troponin I High Sens 13.0 C-Reactive Protein B-Natriuretic Peptide Total Protein Albumin Lipase Procalcitonin 0.03 Influenza Type A (PCR) Influenza Type B (PCR) RSV RNA Qual (PCR) SARS-CoV-2 RNA (RT-PCR) 05/14/21 05/14/21 05/14/21 15:16 16:09 16:21 WBC 8.4 RBC 4.52 L Hgb 16.3 Hct 50.1 MCV 110.8 H MCH 36.1 H MCHC 32.5 RDW 16.2 H Plt Count 117 L MPV 9.6 Immature Gran % (Auto) 0.6 H Neut % (Auto) 65.6 Lymph % (Auto) 27.5 [place] % (Auto) 5.7 Eos % (Auto) 0.2 Baso % (Auto) 0.4 Lymph # (Auto) 2.3 [place] # (Auto) 0.5 Eos # (Auto) 0.0 Baso # (Auto) 0.0 Abs Immat Gran (auto) 0.05 H Absolute Neuts (auto) 5.5 Absolute Nucleated RBC 0.000 Nucleated RBC % (auto) 0.0 Smear Tech's Comments VERIFIED D-Dimer High Sensitivty 502 VBG pH 7.34 VBG pCO2 51 VBG pO2 35 VBG HCO3 27 H VBG O2 Saturation 43.0 VBG Base Excess 1.0 Sodium Potassium Chloride Carbon Dioxide Anion Gap BUN Creatinine Estim Creat Clear Calc Estimated GFR Random Glucose Lactic Acid Lactic Acid F/U @ 2Hr Lactic Acid F/U @ 4Hr Calcium Magnesium Ferritin Total Bilirubin Direct Bilirubin AST ALT Alkaline Phosphatase Lactate Dehydrogenase Troponin I High Sens C-Reactive Protein B-Natriuretic Peptide Total Protein Albumin Lipase Procalcitonin Influenza Type A (PCR) Influenza Type B (PCR) RSV RNA Qual (PCR) SARS-CoV-2 RNA (RT-PCR) 05/14/21 05/14/21 05/14/21 16:21 17:34 20:00 WBC RBC Hgb Hct MCV MCH MCHC RDW Plt Count MPV Immature Gran % (Auto) Neut % (Auto) Lymph % (Auto) [place] % (Auto) Eos % (Auto) Baso % (Auto) Lymph # (Auto) [place] # (Auto) Eos # (Auto) Baso # (Auto) Abs Immat Gran (auto) Absolute Neuts (auto) Absolute Nucleated RBC Nucleated RBC % (auto) Smear Tech's Comments D-Dimer High Sensitivty VBG pH VBG pCO2 VBG pO2 VBG HCO3 VBG O2 Saturation VBG Base Excess Sodium Potassium Chloride Carbon Dioxide Anion Gap BUN Creatinine Estim Creat Clear Calc Estimated GFR Random Glucose Lactic Acid Lactic Acid F/U @ 2Hr 3.5 H* Lactic Acid F/U @ 4Hr 3.3 H* Calcium Magnesium Ferritin Total Bilirubin Direct Bilirubin AST ALT Alkaline Phosphatase Lactate Dehydrogenase Troponin I High Sens C-Reactive Protein B-Natriuretic Peptide 1571 H Total Protein Albumin Lipase Procalcitonin Influenza Type A (PCR) Influenza Type B (PCR) RSV RNA Qual (PCR) SARS-CoV-2 RNA (RT-PCR) 05/15/21 05/15/21 06:38 06:38 WBC 8.3 RBC 3.98 L Hgb 14.4 Hct 42.8 MCV 107.5 H MCH 36.2 H MCHC 33.6 RDW 15.8 Plt Count 119 L MPV 9.6 Immature Gran % (Auto) 0.5 H Neut % (Auto) 85.8 H Lymph % (Auto) 10.8 L [place] % (Auto) 2.8 Eos % (Auto) 0.0 Baso % (Auto) 0.1 Lymph # (Auto) 0.9 L [place] # (Auto) 0.2 Eos # (Auto) 0.0 Baso # (Auto) 0.0 Abs Immat Gran (auto) 0.04 H Absolute Neuts (auto) 7.1 Absolute Nucleated RBC 0.000 Nucleated RBC % (auto) 0.0 Smear Tech's Comments D-Dimer High Sensitivty VBG pH VBG pCO2 VBG pO2 VBG HCO3 VBG O2 Saturation VBG Base Excess Sodium 142 Potassium 4.5 Chloride 106 Carbon Dioxide 25 Anion Gap 16 BUN 26 H Creatinine 0.91 Estim Creat Clear Calc 67.5 Estimated GFR > 60 Random Glucose 110 Lactic Acid Lactic Acid F/U @ 2Hr Lactic Acid F/U @ 4Hr Calcium 8.7 Magnesium Ferritin Total Bilirubin Direct Bilirubin AST ALT Alkaline Phosphatase Lactate Dehydrogenase Troponin I High Sens C-Reactive Protein B-Natriuretic Peptide Total Protein Albumin Lipase Procalcitonin Influenza Type A (PCR) Influenza Type B (PCR) RSV RNA Qual (PCR) SARS-CoV-2 RNA (RT-PCR) Preliminary micro results at discharge 05/14/21 14:50 Blood Culture - Preliminary Blood - Venous Prelim: GPC Gram Stain only Discharge Plan Discharge Anticipated Discharge Date/Time: 05/17/21 11:48 Patient Disposition: Home, Self-Care Discharge Diagnosis: acute on chronic respiratory failure acute on chronic right heart failure Referrals: Odilon Llanes MD [Primary Care Provider] - 1 Week Mathew Vicente MD [Physician] - 1 Week Discharge Medications: New prednisone 10 mg tablet See Taper mg PO DAILY Qty: 39 RF: 0 Continued albuterol sulfate 90 mcg/actuation HFA aerosol inhaler 2 puff inhalation Q4H PRN (Reason: shortness of breath or wheezing) Qty: 8.5 RF: 11 multivitamin Tablet 1 tab PO DAILY RF: 0 vitamin E 400 unit Capsule 400 unit PO DAILY RF: 0 cholecalciferol (vitamin D3) [Vitamin D3] 25 mcg (1,000 unit) Capsule 25 mcg PO DAILY RF: 0 furosemide 40 mg tablet 40 mg PO DAILY RF: 0 aspirin [Adult Low Dose Aspirin] 81 mg tablet,delayed release (DR/EC) 81 mg PO DAILY RF: 0 carvedilol 3.125 mg tablet 3.125 mg PO BID Qty: 180 RF: 4 Discharge Orders: Discharge Order (Routine); Ordered 05/17/21 Ordered By: Brianna Vicente Diet: low salt diet Activity on Discharge: As tolerated Stand Alone Forms: Patient Portal Discharge page Care Plan Goals: use oxygen and continue low sodium diet, monitor weight to prevent readmission Health Concerns: pulmonary fibrosis/COPD chronic respiratory failure right sided heart failure Plan of Treatment: continue to use oxygen as prescribed continue home medications as prescribed continue to monitor daily weight and follow low salt diet continue prednisone as prescribed Assessment: see above Discharge Date/Time: 05/17/21 13:39
[2021-05-15] MEDS: Ipratropium Bromide 0.5 MG/2.5 ML SOLUTION INHALE ×2 (16:02→21:09)
[2021-05-15] MEDS: Enoxaparin Sodium 40 MG/0.4 ML SYRINGE SUBCUT (16:26)
--- NOTE | 2021-05-15 16:54 | P.PNIM_ITS ---
Subjective Subjective Date of Service: 05/15/21 Interval History: seen and examined this morning follow up for respiratory failure/chf leg edema has improved, breathing is improving still hypoxic Review of Systems Review of Systems: Yes all other systems are reviewed and are negative Constitutional Constitutional: Denies chills and Denies fever(s) Cardiovascular Cardiovascular: Denies chest pain Respiratory Respiratory: Denies cough Gastrointestinal Gastrointestinal: Denies abdominal pain Physical Exam Verdana 4l Vital Signs: Verdana 4d Verdana 4d Vital Signs: Verdana 4d Verdana 4Bd Last Vital Signs Verdana 4d Career Resource Technician New 4d Career Resource Technician New 4d Temp 97.2 F 05/15/21 16:00 Career Resource Technician New 4d Pulse 87 05/15/21 16:03 Career Resource Technician NewNew 4d Resp 18 05/15/21 16:03 BP 103/72 05/15/21 16:00 Pulse Ox 96 05/15/21 16:00 Oxygen Flow Rate 5 05/14/21 16:37 BMI result Body Mass Index 23.5 Const: General: cooperative, alert and awake Nutritional Appearance: well nourished Orientation/consciousness: patient oriented x3 HENMT: Head: Yes normocephalic and Yes atraumatic Eyes: Sclerae: sclerae normal Neck: Neck: Yes JVD Resp: Other: dry rales b/l bases, diminished breath sounds, no wheezing Effort & Inspection: tachypneic Cardio: Jugular venous distension: JVD Rate: regular rate Rhythm: regular rhythm GI: Palpation (GI): Soft to palpation and nontender Neuro: General: patient oriented x3 Cranial nerves: Yes CN's II-XII intact bilaterally and Yes Bilaterally intact EOM present Extrem: Other: clubbing of fingers noted; b/l lower extremity edema improved Objective Data Active Medications Acetaminophen (Acetaminophen 325 Mg Tablet) 650 mg PO Q6H PRN PRN Reason: Pain, Mild (Pain Scale 1-3) Aspirin (Aspirin Enteric Coated 81 Mg Tablet.) 81 mg PO DAILY [facility] Last Admin: 05/15/21 08:57 Dose: 81 mg Documented by: ZEINA Docusate Sodium (Docusate Sodium 100 Mg Capsule) 100 mg PO DAILY PRN PRN Reason: Constipation Enoxaparin Sodium (Enoxaparin Sodium 40 Mg/0.4 Ml Syringe) 40 mg SUBCUT Q24H [facility] Last Admin: 05/15/21 16:26 Dose: 40 mg Documented by: MARCIO Furosemide (Furosemide 40 Mg/4 Ml Vial) 40 mg IVPUSH BID@0900,1800 [facility]; Protocol Last Admin: 05/15/21 16:26 Dose: 40 mg Documented by: MARCIO Ipratropium [place] (Ipratropium [place] 0.5 Mg/2.5 Ml Solution) 0.5 mg INHALE RQ4H WHILE AWAKE [facility] Last Admin: 05/15/21 16:02 Dose: 0.5 mg Documented by: ARNOL Multivitamins/Vitamin C (Multivitamin Tablet) 1 tab PO DAILY [facility] Last Admin: 05/15/21 08:57 Dose: 1 tab Documented by: ZEINA Ondansetron HCl (Ondansetron Hcl 4 Mg/2 Ml Vial) 4 mg IVPUSH Q8H PRN PRN Reason: Nausea and Vomiting Pharmacy Consult (Consult Rx Perform Med Rec) 1 each MISCELLANE ONCE PRN PRN Reason: Consult order Sodium Chloride (0.9 % Sodium Chloride Flush 3 Ml Syringe) 3 ml IVFLUSH QSHIFT [facility] Last Admin: 05/15/21 16:26 Dose: 3 ml Documented by: MARCIO Vitamin D (Cholecalciferol (Vitamin D3) 25 Mcg Tablet) 25 mcg PO DAILY [facility] Last Admin: 05/15/21 08:57 Dose: 25 mcg Documented by: ZEINA Labs CBC & Chem 7: 05/15/21 06:38 05/15/21 06:38 Labs: Laboratory Results - last 24 hr 05/14/21 05/14/21 05/14/21 15:08 17:34 20:00 MCV MCH MCHC RDW Plt Count MPV Immature Gran % (Auto) Neut % (Auto) Lymph % (Auto) [place] % (Auto) Eos % (Auto) Baso % (Auto) Lymph # (Auto) [place] # (Auto) Eos # (Auto) Baso # (Auto) Abs Immat Gran (auto) Absolute Neuts (auto) Absolute Nucleated RBC Nucleated RBC % (auto) Anion Gap Estim Creat Clear Calc Estimated GFR Random Glucose Lactic Acid F/U @ 2Hr 3.5 H* Lactic Acid F/U @ 4Hr 3.3 H* Calcium Procalcitonin 0.03 05/15/21 05/15/21 06:38 06:38 MCV 107.5 H MCH 36.2 H MCHC 33.6 RDW 15.8 Plt Count 119 L MPV 9.6 Immature Gran % (Auto) 0.5 H Neut % (Auto) 85.8 H Lymph % (Auto) 10.8 L Bre[place] % (Auto) 2.8 Eos % (Auto) 0.0 Baso % (Auto) 0.1 Lymph # (Auto) 0.9 L [place] # (Auto) 0.2 Eos # (Auto) 0.0 Baso # (Auto) 0.0 Abs Immat Gran (auto) 0.04 H Absolute Neuts (auto) 7.1 Absolute Nucleated RBC 0.000 Nucleated RBC % (auto) 0.0 Anion Gap 16 Estim Creat Clear Calc 67.5 Estimated GFR > 60 Random Glucose 110 Lactic Acid F/U @ 2Hr Lactic Acid F/U @ 4Hr Calcium 8.7 Procalcitonin Microbiology Microbiology Results: Microbiology 05/14/21 14:50 Blood Culture - Preliminary Blood - Venous Prelim: GPC Gram Stain only Assessment and Plan (1) Acute and chronic respiratory failure with hypoxia: Status: Acute (2) Cor pulmonale: Status: Acute (3) Acute on chronic right-sided heart failure: Status: Acute Assessment and Plan: This is a 75-year-old male history 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 procalcitonin low Covid/flu/RSV negative lactic acid elevated from hypoxia not sepsis home o2 eval, likely needs oxygen at rest as well as ambulation Acute on chronic right sided heart failure echo from 05/10 shows severely increased right ventricular cavity size, moderately decreased right ventricular systolic function, severe pulmonary hypertension. LVEF 57% BNP 1571 continue IV lasix 40 bid, transition back to po in am monitor Is&Os and follow electrolytes was seen by cardiology in consultation, hypoxia from no using oxygen likely contributing factor to dyspnea. no significant fluid overload, no further inpatient work up required. combined pulmonary fibrosis and emphysema home o2 eval prior to discharge elevated bili chronic and not related to sepsis h/o NSVT electrolytes wnl BB on hold due to hypotention blood pressure improving, can resume likely tomorrow thrombocytopenia chronic dvt ppx - lovenox code status - full code attending - dr. robison Quality Stroke Does the patient have a stroke diagnosis?: No VTE Prior VTE?: No VTE Risk Level:: Medical - moderate - high VTE Device Contraindication: Treatment Not Indicated VTE Drug Contraindication: N/A - Med Ordered
[2021-05-16] VITALS (9 sets, daily range): BP systolic 103–129; BP diastolic 55–84; PULSE 75–90; RESP 15–20; TEMP 36.1–36.8; O2SAT 88–97
[2021-05-16] MEDS: Multivitamin TABLET 1 TAB PO (07:31)
[2021-05-16] MEDS: Cholecalciferol (Vitamin D3) 25 MCG TABLET PO (07:32)
[2021-05-16] MEDS: 0.9 % Sodium Chloride Flush 3 ML SYRINGE IVFLUSH ×3 (07:32→19:59)
[2021-05-16] MEDS: Furosemide 40 MG TABLET PO (07:32)
[2021-05-16] MEDS: Aspirin Enteric Coated 81 MG TABLET.DR PO (07:32)
[2021-05-16] MEDS: Ipratropium Bromide 0.5 MG/2.5 ML SOLUTION INHALE ×3 (08:06→19:58)
[2021-05-16] MEDS: methylPREDNISolone Sod Succ 40 MG/ML VIAL IVPUSH ×2 (13:09→19:59)
--- NOTE | 2021-05-16 13:40 | HO.PM.IMPN ---
Subjective Subjective Date of Service: 05/16/21 Interval History: seen and examined this morning follow up for respiratory failure, chf reports feeling fine and denies sob but oxygen requirements increasing this am wants to go home some cough with clear phlegm says unchanged from baseline Review of Systems Review of Systems: Yes all other systems are reviewed and are negative Constitutional Constitutional: Denies chills and Denies fever(s) Cardiovascular Cardiovascular: Denies chest pain Gastrointestinal Gastrointestinal: Denies abdominal pain Physical Exam Vital Signs: Vital Signs: Last Vital Signs Temp 97.4 F 05/16/21 12:00 Pulse 77 05/16/21 12:00 Resp 20 05/16/21 12:00 BP 116/58 L 05/16/21 12:00 Pulse Ox 90 L 05/16/21 12:00 Oxygen Flow Rate 5 05/14/21 16:37 BMI result Body Mass Index 23.5 Const: General: cooperative, alert and awake Nutritional Appearance: well nourished Orientation/consciousness: patient oriented x3 HENMT: Head: Yes normocephalic and Yes atraumatic Eyes: Sclerae: sclerae normal Neck: Neck: Yes JVD Resp: Other: dry rales b/l bases, diminished breath sounds, no wheezing Effort & Inspection: tachypneic Cardio: Jugular venous distension: JVD Rate: regular rate Rhythm: regular rhythm GI: Palpation (GI): Soft to palpation and nontender Neuro: General: patient oriented x3 Cranial nerves: Yes CN's II-XII intact bilaterally and Yes Bilaterally intact EOM present Extrem: Other: clubbing of fingers noted; b/l lower extremity edema improved Objective Data Active Medications Acetaminophen (Acetaminophen 325 Mg Tablet) 650 mg PO Q6H PRN PRN Reason: Pain, Mild (Pain Scale 1-3) Aspirin (Aspirin Enteric Coated 81 Mg Tablet.) 81 mg PO DAILY [facility] Last Admin: 05/16/21 07:32 Dose: 81 mg Documented by: MARCIO Docusate Sodium (Docusate Sodium 100 Mg Capsule) 100 mg PO DAILY PRN PRN Reason: Constipation Enoxaparin Sodium (Enoxaparin Sodium 40 Mg/0.4 Ml Syringe) 40 mg SUBCUT Q24H [facility] Last Admin: 05/15/21 16:26 Dose: 40 mg Documented by: MARCIO Furosemide (Furosemide 40 Mg Tablet) 40 mg PO DAILY [facility]; Protocol Last Admin: 05/16/21 07:32 Dose: 40 mg Documented by: MARCIO Ipratropium [place] (Ipratropium [place] 0.5 Mg/2.5 Ml Solution) 0.5 mg INHALE RQ4H WHILE AWAKE [facility] Last Admin: 05/16/21 11:10 Dose: 0.5 mg Documented by: ARNOL Methylprednisolone Sodium Succinate (Methylprednisolone Sod Succ 40 Mg/Ml Vial) 40 mg IVPUSH Q8H [facility] Last Admin: 05/16/21 13:09 Dose: 40 mg Documented by: MARCIO Multivitamins/Vitamin C (Multivitamin Tablet) 1 tab PO DAILY [facility] Last Admin: 05/16/21 07:31 Dose: 1 tab Documented by: MARCIO Ondansetron HCl (Ondansetron Hcl 4 Mg/2 Ml Vial) 4 mg IVPUSH Q8H PRN PRN Reason: Nausea and Vomiting Pharmacy Consult (Consult Rx Perform Med Rec) 1 each MISCELLANE ONCE PRN PRN Reason: Consult order Sodium Chloride (0.9 % Sodium Chloride Flush 3 Ml Syringe) 3 ml IVFLUSH QSHIFT [facility] Last Admin: 05/16/21 07:32 Dose: 3 ml Documented by: MARCIO Vitamin D (Cholecalciferol (Vitamin D3) 25 Mcg Tablet) 25 mcg PO DAILY [facility] Last Admin: 05/16/21 07:32 Dose: 25 mcg Documented by: MARCIO Labs CBC & Chem 7: 05/15/21 06:38 05/15/21 06:38 Microbiology Microbiology Results: Microbiology 05/14/21 14:50 Blood Culture - Final Blood - Venous Coag negative Staphylococcus 05/14/21 14:50 Blood Culture - Preliminary Blood - Venous No growth after 24 hours. 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 procalcitonin low, no inidcation for abx Covid/flu/RSV negative lactic acid elevated from hypoxia not sepsis now with increasing oxygen requirements, will start IV solu-medrol, obtain ABG, CTA (initial ddimer lower then previous and b/l LE dopplers negative for DVT) consider pulmonology consult Acute on chronic right sided heart failure echo from 05/10 shows severely increased right ventricular cavity size, moderately decreased right ventricular systolic function, severe pulmonary hypertension. LVEF 57% BNP 1571 continue IV lasix 40 bid, transition back to po this am monitor Is&Os and follow electrolytes was seen by cardiology in consultation, hypoxia from no using oxygen likely contributing factor to dyspnea. no significant fluid overload, no further inpatient work up required. combined pulmonary fibrosis and emphysema will start IV solu-medrol due to increasing oxygen requirements home o2 eval prior to discharge. on oxygen prn and with activity at baseline, likely needs oxgen 24/7 elevated bili chronic and not related to sepsis h/o NSVT electrolytes wnl BB on hold due to hypotention blood pressure improving, can resume likely tomorrow thrombocytopenia chronic dvt ppx - lovenox code status - full code attending - dr. raya Quality Stroke Does the patient have a stroke diagnosis?: No VTE Prior VTE?: No VTE Risk Level:: Medical - moderate - high VTE Device Contraindication: Treatment Not Indicated VTE Drug Contraindication: N/A - Med Ordered
[2021-05-16] MEDS: iohexoL 350 MG/ML 100 ML INFUS..BTL 85 ML IV (16:26)
[2021-05-16] MEDS: Enoxaparin Sodium 40 MG/0.4 ML SYRINGE SUBCUT (16:45)
[2021-05-16 20:54] LABS: VBG Base Excess 5.3 mmol/L; VBG HCO3 31 mmol/L (22-26); VBG pCO2 52 mmHg; VBG pH 7.39 (7.32-7.43); VBG pO2 36 mmHg
[2021-05-16 20:54] LABS: Venous Blood Gas Refer to POC result
--- NOTE | 2021-05-16 23:46 | PC.NURSE ---
Pt had 12 beats of Vtach on tele while asleep, pt denies any symptoms when awaken, Vitals are WNL, Dr. Garza was notified.
[2021-05-17] VITALS: BP 97/59; PULSE 76; RESP 20; TEMP 36.4; O2SAT 94
[2021-05-17 03:57] VITALS: BP 111/60; PULSE 88; RESP 20; TEMP 36.3; O2SAT 92
[2021-05-17] MEDS: methylPREDNISolone Sod Succ 40 MG/ML VIAL IVPUSH (05:12)
[2021-05-17 05:49] LABS: MANUAL DIFF FLAG NO
[2021-05-17 05:56] LABS: Basophils Percent Auto 0.1 % (0-2); Hematocrit 40.8 % (42.0-52.0); Hemoglobin 13.5 g/dl (14.0-18.0); Imm Gran Abs Auto 0.07 X10*3/uL (0.00-0.03); Imm Gran Pct Auto 0.8 % (0.0-0.4); Lymphocytes Absolute Auto 1.1 X10*3/uL (1.2-4.9); Lymphocytes Percent Auto 11.9 % (20-40); Mean Corpuscular HGB Conc 33.1 g/dl (31.0-36.0); Mean Corpuscular Hemoglobin 35.8 pg (27.0-33.0); Mean Corpuscular Volume 108.2 fL (80.0-98.0); Mean Platelet Volume 9.7 fL (9.4-12.4); Monocytes Absolute Auto 0.2 X10*3/uL (0.1-1.2); Monocytes Percent Auto 1.8 % (2-11); Neutrophils Absolute Auto 7.7 x10*3/uL (2.0-8.3); Neutrophils Percent Auto 85.4 % (45-73); Platelet Count 124 X10*3/uL (160-400); Red Blood Count 3.77 X10*6/uL (4.60-5.80); Red Cell Distribution Width 15.4 % (11.0-16.0); White Blood Count 9.1 X10*3/uL (4.8-10.8)
[2021-05-17 06:13] LABS: Anion Gap 14 (12-20); Blood Urea Nitrogen 26 mg/dL (9-16); Calcium 8.9 mg/dL (8.4-10.2); Carbon Dioxide 27 mmol/L (22-29); Chloride 105 mmol/L (96-108); Creatinine Clr Calc Pharmacy 68.3; Estimated Glomerular Filt Rate > 60; Glucose Random 103 mg/dL (60-115); Potassium 3.9 mmol/L (3.3-5.1); Sodium 142 mmol/L (135-145)
[2021-05-17 07:42] VITALS: BP 116/72; PULSE 76; RESP 20; TEMP 36.2; O2SAT 92
[2021-05-17] MEDS: Ipratropium Bromide 0.5 MG/2.5 ML SOLUTION INHALE ×2 (08:24→12:34)
[2021-05-17 08:27] VITALS: PULSE 76; RESP 20; O2SAT 92
[2021-05-17] MEDS: Multivitamin TABLET 1 TAB PO (09:09)
[2021-05-17] MEDS: Aspirin Enteric Coated 81 MG TABLET.DR PO (09:09)
[2021-05-17] MEDS: 0.9 % Sodium Chloride Flush 3 ML SYRINGE IVFLUSH (09:09)
[2021-05-17] MEDS: Cholecalciferol (Vitamin D3) 25 MCG TABLET PO (09:09)
[2021-05-17] MEDS: Furosemide 40 MG TABLET PO (09:09)
--- NOTE | 2021-05-17 10:50 | MHC.CM.PN ---
NURSE CUSTOMER CONTACT REPRESENTATIVE NOTE ELECTRONIC MEDICAL RECORS REVIEWED ALONG [facility] CASE DISCUSSED WITH THE HOSPITALIST [place] ANTICIPATING DISCHARGE HOME TODAY WITH HIS OXYGEN ,( WILL BRING IN PORTABLE O2 TANK FOR TRANSPORT) AND PATIENT WILL SELF RESUME HIS SUPPLIER OF HIS OXYGEN PCP FOLLOW UP WITH DR [facility]
[2021-05-17 11:23] VITALS: BP 105/71; PULSE 86; RESP 20; TEMP 36.2; O2SAT 93
--- NOTE | 2021-05-17 11:47 | PM.DS ---
DS: Providers Provider Date of Service: 05/17/21 Date of admission: 05/14/21 17:06 Primary care physician: Odilon Llanes MD Consults: 05/15/21 09:40 Consult to Cardiology Routine Consulting Provider: Jose Griggs Reason for consultation: chf Has provider been notified: No Attending physician on discharge: Bry Borrego Discharging clinician: Brianna Vicente DS: Diagnosis Discharge Diagnosis (1) Acute and chronic respiratory failure with hypoxia: Status: Acute (2) Acute on chronic right-sided heart failure: Status: Acute DS: Summary Hospital Course Hospital Course: From H&P on day of admission This is a 75 year male with 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 He was in his usual state of health when he became short of breath this morning.? He has had a mild associated cough with no phlegm production.? He denies any recent sick contacts.? He has no associated fever or chills.? He weighs himself daily and has not gained any weight over the past week and he follows a low-sodium diet.? He denies any associated chest pain or palpitations.? He initially went to urgent care clinic for a COVID test but did not bring his supplemental oxygen with him.? In the office he was noted to be short of breath and he was sent to the emergency department for further workup.? He is currently saturating 87-89% on 5 L. Work up in the ED revealed BNP elevated at 1571, lactic acid 2.8. He has been afebrile and no leukocytosis on cbc.? Chest x-ray showed increased interstitial lung markings with broad differential but no dense focal consolidation. Testing for covid, rsv and flu were negative. Initially his blood pressure was as low as 86/60 but has since improved.? He received a breathing treatment, IV Solu-Medrol, IV Lasix, empiric antibiotics.? The decision was made to admit him for further management. Acute on chronic respiratory failure with hypoxia secondary to acute on chronic right heart failure in the setting of severe underlying lung disease Patient reported onset of shortness of breath yesterday. He went to urgent care clinic without using his supplemental oxygen. He was sent to the emergency department for hypoxia. He appeared to be mildly fluid overloaded on arrival and was also hypotensive. He was placed on oxygen and his symptoms and blood pressure improved. He received IV Lasix, empiric antibiotics as well as steroids. He had no wheezing on physical exam. His BNP was elevated but within his normal baseline. He was admitted to the hospital and treated with IV Lasix. He was seen in consultation by Cardiology who felt that he had already improved with diuresis and his symptoms may have been brought on from hypoxia related to non-compliance with supplemental oxygen. Hypoxia leads to pulmonary vasoconstriction and can elevate pulmonary pressures.? With severe RV dysfunction this can lead to dizziness and syncope in patients and can also lead to dyspnea.? The important of using his oxygen regularly was discussed.?Of note, he has tricuspid valve regurgitation and prominent V-waves on neck examination and his neck veins may appear distended all the time due to that.?His leg edema has improved, his breathing has improved on his baseline oxygen. He had home oxygen evaluation prior to discharge, he will be on 3-4 liters at baseline and up to 6 liters with activity. Time Spent with Patient Time attestation: Total time spent providing and/or coordinating discharge services: Discharge coordination time: Greater than 30 minutes Quality: Stroke Does the patient have a stroke diagnosis?: No Physical Exam Vital Signs: Vital Signs: Last Vital Signs Temp 97.2 F 05/17/21 11:23 Pulse 86 05/17/21 11:23 Resp 20 05/17/21 11:23 BP 105/71 05/17/21 11:23 Pulse Ox 93 05/17/21 11:23 Oxygen Flow Rate 5 05/14/21 16:37 BMI result Body Mass Index 23.5 Appearing in no acute distress head is normocephalic atraumatic eyes pupils are PERRLA sclera is anicteric mouth throat mucous membranes are intact and moist neck is supple no lymphadenopathy, no JVD noted lung sounds diminished heart regular rate rhythm, clear S1, S2 positive bowel sounds, abdomen is soft, nontender neuro patient is alert x3, no focal deficits DS: Data Data Completed and Pending Labs on day of discharge: Laboratory Results - last 24 hr 05/14/21 05/16/21 05/17/21 16:09 20:48 05:13 WBC 9.1 RBC 3.77 L Hgb 13.5 L Hct 40.8 L MCV 108.2 H MCH 35.8 H MCHC 33.1 RDW 15.4 Plt Count 124 L MPV 9.7 Immature Gran % (Auto) 0.8 H Neut % (Auto) 85.4 H Lymph % (Auto) 11.9 L [place] % (Auto) 1.8 L Eos % (Auto) 0.0 Baso % (Auto) 0.1 Lymph # (Auto) 1.1 L [place] # (Auto) 0.2 Eos # (Auto) 0.0 Baso # (Auto) 0.0 Abs Immat Gran (auto) 0.07 H Absolute Neuts (auto) 7.7 Absolute Nucleated RBC 0.000 Nucleated RBC % (auto) 0.0 Smear Path Review SEE NOTE VBG pH 7.39 VBG pCO2 52 VBG pO2 36 VBG HCO3 31 H VBG O2 Saturation 50.0 VBG Base Excess 5.3 Sodium Potassium Chloride Carbon Dioxide Anion Gap BUN Creatinine Estim Creat Clear Calc Estimated GFR Random Glucose Calcium 05/17/21 05:13 WBC RBC Hgb Hct MCV MCH MCHC RDW Plt Count MPV Immature Gran % (Auto) Neut % (Auto) Lymph % (Auto) [place] % (Auto) Eos % (Auto) Baso % (Auto) Lymph # (Auto) [place] # (Auto) Eos # (Auto) Baso # (Auto) Abs Immat Gran (auto) Absolute Neuts (auto) Absolute Nucleated RBC Nucleated RBC % (auto) Smear Path Review VBG pH VBG pCO2 VBG pO2 VBG HCO3 VBG O2 Saturation VBG Base Excess Sodium 142 Potassium 3.9 Chloride 105 Carbon Dioxide 27 Anion Gap 14 BUN 26 H Creatinine 0.90 Estim Creat Clear Calc 68.3 Estimated GFR > 60 Random Glucose 103 Calcium 8.9 Preliminary micro results at discharge 05/14/21 14:50 Blood Culture - Preliminary Blood - Venous No growth after 48 hours. Discharge Plan Discharge Anticipated Discharge Date/Time: 05/17/21 11:48 Patient Disposition: Home, Self-Care Discharge Diagnosis: acute on chronic respiratory failure acute on chronic right heart failure Referrals: Odilon Llanes MD [Primary Care Provider] - 1 Week Mathew Vicente MD [Physician] - 1 Week Discharge Medications: New prednisone 10 mg tablet See Taper mg PO DAILY Qty: 39 RF: 0 Continued albuterol sulfate 90 mcg/actuation HFA aerosol inhaler 2 puff inhalation Q4H PRN (Reason: shortness of breath or wheezing) Qty: 8.5 RF: 11 multivitamin Tablet 1 tab PO DAILY RF: 0 vitamin E 400 unit Capsule 400 unit PO DAILY RF: 0 cholecalciferol (vitamin D3) [Vitamin D3] 25 mcg (1,000 unit) Capsule 25 mcg PO DAILY RF: 0 furosemide 40 mg tablet 40 mg PO DAILY RF: 0 aspirin [Adult Low Dose Aspirin] 81 mg tablet,delayed release (DR/EC) 81 mg PO DAILY RF: 0 carvedilol 3.125 mg tablet 3.125 mg PO BID Qty: 180 RF: 4 Discharge Orders: Discharge Order (Routine); Ordered 05/17/21 Ordered By: Brianna Vicente Diet: low salt diet Activity on Discharge: As tolerated Stand Alone Forms: Patient Portal Discharge page Care Plan Goals: use oxygen and continue low sodium diet, monitor weight to prevent readmission Health Concerns: pulmonary fibrosis/COPD chronic respiratory failure right sided heart failure Plan of Treatment: continue to use oxygen as prescribed continue home medications as prescribed continue to monitor daily weight and follow low salt diet continue prednisone as prescribed Assessment: see above
[2021-05-17 12:35] VITALS: PULSE 91; PULSE 92; RESP 20; O2SAT 89
== END 2021-05-17 13:39 | disposition home or self-care (01) | DRG 291 ==
LOC: HO.ED 16:58 → HO.EDOVER 17:15 → HO.S3 05-15 11:45
PROVIDERS: Internal Medicine; Admitting Provider Physician Assistant Medical; Emergency Provider Emergency Medicine; PCP Internal Medicine; Visit Provider Nurse Practitioner Acute Care
DX: I50.813 Acute on chronic right heart failure (principal); J96.20 Acute and chronic respiratory failure, unspecified whether with hypoxia or hypercapnia; E87.2 Acidosis; J43.9 Emphysema, unspecified; J84.10 Pulmonary fibrosis, unspecified; I95.9 Hypotension, unspecified; I27.81 Cor pulmonale (chronic); Z99.81 Dependence on supplemental oxygen; Z20.822 Contact with and (suspected) exposure to COVID-19; Z87.891 Personal history of nicotine dependence; Z79.82 Long term (current) use of aspirin; Z79.899 Other long term (current) drug therapy
CPT/HCPCS: 0241U; 36415; 71045; 71275; 80048; 80076; 82728; 82803; 83605; 83615; 83690; 83735; 83880; 84145; 84484; 85025; 85379; 86140; 87040; 87147; 87205; 93005; 93970; 94640; 94644; 96365; 96366; 96375; 99285; J0456; J0692; J1650; J1940; J2920; J2930; Q9967

== ENCOUNTER → 2021-06-02 09:01 | Outpatient (BNVA) | payer MEDICARE, OTHER, SELFPAY | PROVIDERS: PCP Internal Medicine; Visit Provider Hospitalist | DX: J84.10 Pulmonary fibrosis, unspecified (principal); J96.11 Chronic respiratory failure with hypoxia; J96.12 Chronic respiratory failure with hypercapnia; J41.8 Mixed simple and mucopurulent chronic bronchitis; I27.20 Pulmonary hypertension, unspecified; M79.89 Other specified soft tissue disorders | CPT/HCPCS: 99212 ==

== ENCOUNTER 2021-06-11 12:10 | Outpatient (REF) | payer MEDICARE, OTHER, SELFPAY ==
[2021-06-11 13:48] LABS: MANUAL DIFF FLAG NO
[2021-06-11 13:53] LABS: Basophils Percent Auto 0.2 % (0-2); Eosinophils Percent Auto 0.3 % (0-4); Hematocrit 48.8 % (42.0-52.0); Imm Gran Abs Auto 0.06 X10*3/uL (0.00-0.03); Imm Gran Pct Auto 0.5 % (0.0-0.4); Lymphocytes Absolute Auto 1.8 X10*3/uL (1.2-4.9); Lymphocytes Percent Auto 15.4 % (20-40); Mean Corpuscular HGB Conc 32.8 g/dl (31.0-36.0); Mean Corpuscular Volume 106.8 fL (80.0-98.0); Mean Platelet Volume 10.2 fL (9.4-12.4); Monocytes Absolute Auto 0.5 X10*3/uL (0.1-1.2); Monocytes Percent Auto 4.1 % (2-11); Neutrophils Absolute Auto 9.4 x10*3/uL (2.0-8.3); Neutrophils Percent Auto 79.5 % (45-73); Platelet Count 143 X10*3/uL (160-400); Red Blood Count 4.57 X10*6/uL (4.60-5.80); Red Cell Distribution Width 14.8 % (11.0-16.0); White Blood Count 11.8 X10*3/uL (4.8-10.8)
[2021-06-11 14:38] LABS: Alanine Aminotransferase 37 U/L (0-40); Alkaline Phosphatase 119 U/L (39-117); Anion Gap 16 (12-20); Aspartate Amino Transferase 30 U/L (5-37); Bilirubin Total 1.7 mg/dL (0.0-1.0); Blood Urea Nitrogen 32 mg/dL (9-16); Calcium 9.2 mg/dL (8.4-10.2); Carbon Dioxide 29 mmol/L (22-29); Chloride 101 mmol/L (96-108); Estimated Glomerular Filt Rate > 60; Glucose Random 82 mg/dL (60-115); Potassium 3.6 mmol/L (3.3-5.1); Sodium 142 mmol/L (135-145); Total Protein 7.1 g/dL (6.5-8.0)
== END 2021-06-11 12:11 | disposition home or self-care (01) ==
LOC: HO.10HDL 12:10
PROVIDERS: Visit Provider Internal Medicine
DX: R60.9 Edema, unspecified (principal); I27.20 Pulmonary hypertension, unspecified
CPT/HCPCS: 36415; 80053; 85025

== ENCOUNTER 2021-06-21 09:57 | Outpatient (REF) | payer MEDICARE, OTHER, SELFPAY ==
--- NOTE | ~2021-06-21 | XR_ITS ---
EXAMINATION: XR lumbar spine 2-3V, XR thoracic spine 2V CLINICAL INFORMATION: Pain, trauma COMPARISON: CT chest 06/05/2021 TECHNIQUE: 3 views of the thoracic spine and 3 views of the lumbar spine XR/XR lumbar spine 2-3V FINDINGS/IMPRESSION: THORACIC SPINE: Age-indeterminate wedge compression deformity of the T5 vertebral body with approximately 50% height loss, new from prior. Upper thoracic spine is partially obscured by patient's shoulders overlying on the lateral views Alignment is maintained. Moderate multilevel degenerative disc disease with loss of disc space height and disc osteophyte complexes. Paravertebral soft tissues are unremarkable. LUMBAR SPINE: 5 nonrib-bearing lumbar-type vertebral bodies. L1 wedge compression deformity with approximately 50% height loss, unchanged from prior. There is focal cortical angulation of S2 which may reflect an age-indeterminate sacral fracture. This could be confirmed with a CT pelvis. Alignment is maintained. Mild multilevel degenerative disc disease manifested by loss of disc space height and facet arthropathy. Paravertebral soft tissues are unremarkable. The report will be called to the ordering clinician by a [place] Radiology Physician House Furnishings Supervisor.
--- NOTE | ~2021-06-21 | XR_ITS ---
EXAMINATION: XR chest 2V CLINICAL INFORMATION: Reason for Exam W19.XXXA - Unspecified fall, initial encounter COMPARISON: Chest radiograph 05/15/2021, CT chest PE protocol 05/16/2021 TECHNIQUE: 2 views of the chest XR/XR chest 2V FINDINGS/IMPRESSION: Emphysema. Indistinctness of the central pulmonary vasculature with increased interstitial opacities which may reflect pulmonary edema. No pneumothorax. No pleural effusion. Cardiac silhouette is enlarged similar to prior.
--- NOTE | ~2021-06-21 | XR_ITS ---
EXAMINATION: XR lumbar spine 2-3V, XR thoracic spine 2V CLINICAL INFORMATION: Pain, trauma COMPARISON: CT chest 06/05/2021 TECHNIQUE: 3 views of the thoracic spine and 3 views of the lumbar spine XR/XR thoracic spine 2V FINDINGS/IMPRESSION: THORACIC SPINE: Age-indeterminate wedge compression deformity of the T5 vertebral body with approximately 50% height loss, new from prior. Upper thoracic spine is partially obscured by patient's shoulders overlying on the lateral views Alignment is maintained. Moderate multilevel degenerative disc disease with loss of disc space height and disc osteophyte complexes. Paravertebral soft tissues are unremarkable. LUMBAR SPINE: 5 nonrib-bearing lumbar-type vertebral bodies. L1 wedge compression deformity with approximately 50% height loss, unchanged from prior. There is focal cortical angulation of S2 which may reflect an age-indeterminate sacral fracture. This could be confirmed with a CT pelvis. Alignment is maintained. Mild multilevel degenerative disc disease manifested by loss of disc space height and facet arthropathy. Paravertebral soft tissues are unremarkable. The report will be called to the ordering clinician by a [place] Radiology Physician Public Health Educator.
== END 2021-06-21 09:58 | disposition home or self-care (01) ==
LOC: HO.XRAY 09:57
PROVIDERS: PCP Internal Medicine; Visit Provider Hospitalist
DX: J96.21 Acute and chronic respiratory failure with hypoxia (principal); J84.10 Pulmonary fibrosis, unspecified; J96.11 Chronic respiratory failure with hypoxia; J96.12 Chronic respiratory failure with hypercapnia; J41.8 Mixed simple and mucopurulent chronic bronchitis; I27.20 Pulmonary hypertension, unspecified; M79.89 Other specified soft tissue disorders; W19.XXXA Unspecified fall, initial encounter
CPT/HCPCS: 71046; 72070; 72100; 99212

== ENCOUNTER → 2021-06-28 08:47 | Outpatient (BNVA) | payer MEDICARE, OTHER, SELFPAY | PROVIDERS: PCP Internal Medicine; Referring Provider Internal Medicine; Visit Provider Internal Medicine | DX: I50.812 Chronic right heart failure (principal); I42.8 Other cardiomyopathies; I27.20 Pulmonary hypertension, unspecified | CPT/HCPCS: 99212 ==

== ENCOUNTER → 2021-07-20 10:19 | Outpatient (BNVA) | payer MEDICARE, OTHER, SELFPAY | PROVIDERS: PCP Internal Medicine; Visit Provider Hospitalist | DX: J43.9 Emphysema, unspecified (principal); J96.21 Acute and chronic respiratory failure with hypoxia; J84.10 Pulmonary fibrosis, unspecified; J41.8 Mixed simple and mucopurulent chronic bronchitis; F17.210 Nicotine dependence, cigarettes, uncomplicated; Z99.3 Dependence on wheelchair; Z99.11 Dependence on respirator [ventilator] status; Z99.81 Dependence on supplemental oxygen | CPT/HCPCS: 99212 ==

== ENCOUNTER → 2021-08-17 10:22 | Outpatient (BNVA) | payer MEDICARE, OTHER, SELFPAY | PROVIDERS: PCP Internal Medicine; Visit Provider Hospitalist | DX: J84.10 Pulmonary fibrosis, unspecified (principal); J41.8 Mixed simple and mucopurulent chronic bronchitis; J96.11 Chronic respiratory failure with hypoxia; J96.12 Chronic respiratory failure with hypercapnia; I27.20 Pulmonary hypertension, unspecified; M79.89 Other specified soft tissue disorders; Z79.52 Long term (current) use of systemic steroids; Z79.899 Other long term (current) drug therapy; Z87.891 Personal history of nicotine dependence; Z99.81 Dependence on supplemental oxygen | CPT/HCPCS: 99212 ==

== ENCOUNTER 2021-12-01 14:36 | Outpatient (REF) | payer MEDICARE, OTHER, SELFPAY ==
--- NOTE | 2021-12-01 16:06 | PFT_ITS ---
INDICATION: COPD and pulmonary fibrosis. TEST COMMENTS: Maneuvers were performed, optimal efforts. The patient was unable to perform lung volumes. He was also unable to perform diffusion capacity, could not perform the maneuver holding his breath for 10 seconds. SPIROMETRY: The FEV1 to FVC of 68% with an FEV1 of 2.05 L, which is 66% predicted and FVC of 3 L, which is 70% predicted. No significant response to bronchodilators noted. The maximum voluntary ventilation 66% predicted. Again, lung volumes could not be performed after multiple attempts, and diffusion capacity could not be performed after multiple times. COMPARISONS: None available. INTERPRETATION: There is an obstructive ventilatory defect consistent with moderate COPD. No significant response to bronchodilators noted, and there is a moderate decrease in maximum voluntary ventilation secondary to deconditioning and other comorbidities. Clinical correlation warranted. MD MAGGIE Lazo/[facility] / [id number]
== END 2021-12-01 14:37 | disposition home or self-care (01) ==
LOC: HO.RESP 14:36
PROVIDERS: PCP Internal Medicine; Visit Provider Hospitalist
DX: J41.8 Mixed simple and mucopurulent chronic bronchitis (principal); F17.210 Nicotine dependence, cigarettes, uncomplicated; Z79.899 Other long term (current) drug therapy
CPT/HCPCS: 94060

== ENCOUNTER → 2021-12-07 10:03 | Outpatient (BNVA) | payer MEDICARE, OTHER, SELFPAY | PROVIDERS: PCP Internal Medicine; Visit Provider Hospitalist | DX: I27.20 Pulmonary hypertension, unspecified (principal); J84.10 Pulmonary fibrosis, unspecified; J96.11 Chronic respiratory failure with hypoxia; J96.12 Chronic respiratory failure with hypercapnia; J41.8 Mixed simple and mucopurulent chronic bronchitis; M79.89 Other specified soft tissue disorders; J96.21 Acute and chronic respiratory failure with hypoxia | CPT/HCPCS: 99212 ==

== ENCOUNTER 2022-01-11 12:23 | Outpatient (REF) | payer MEDICARE, OTHER, SELFPAY ==
[2022-01-11 13:46] LABS: MANUAL DIFF FLAG NO
[2022-01-11 13:50] LABS: Basophils Percent Auto 0.6 % (0-2); Eosinophils Percent Auto 0.4 % (0-4); Hemoglobin 15.8 g/dl (14.0-18.0); Imm Gran Abs Auto 0.02 X10*3/uL (0.00-0.03); Imm Gran Pct Auto 0.3 % (0.0-0.4); Lymphocytes Absolute Auto 1.5 X10*3/uL (1.2-4.9); Lymphocytes Percent Auto 21.3 % (20-40); Mean Corpuscular HGB Conc 32.2 g/dl (31.0-36.0); Mean Corpuscular Hemoglobin 33.4 pg (27.0-33.0); Mean Corpuscular Volume 103.6 fL (80.0-98.0); Mean Platelet Volume 10.4 fL (9.4-12.4); Monocytes Absolute Auto 0.6 X10*3/uL (0.1-1.2); Monocytes Percent Auto 8.2 % (2-11); Neutrophils Absolute Auto 4.9 x10*3/uL (2.0-8.3); Neutrophils Percent Auto 69.2 % (45-73); Platelet Count 137 X10*3/uL (160-400); Red Blood Count 4.73 X10*6/uL (4.60-5.80); Red Cell Distribution Width 16.9 % (11.0-16.0); White Blood Count 7.1 X10*3/uL (4.8-10.8)
[2022-01-11 14:22] LABS: Alanine Aminotransferase 24 U/L (0-40); Alkaline Phosphatase 108 U/L (39-117); Anion Gap 18 (12-20); Aspartate Amino Transferase 42 U/L (5-37); Bilirubin Total 2.3 mg/dL (0.0-1.0); Blood Urea Nitrogen 23 mg/dL (9-16); Calcium 9.3 mg/dL (8.4-10.2); Carbon Dioxide 26 mmol/L (22-29); Chloride 101 mmol/L (96-108); Cholesterol 151 mg/dL; Estimated Glomerular Filt Rate > 60; Glucose Random 63 mg/dL (60-115); Potassium 4.2 mmol/L (3.3-5.1); Sodium 141 mmol/L (135-145); Total Protein 7.3 g/dL (6.5-8.0)
[2022-01-11 14:45] LABS: Prostate Specific Antigen Scr 1.05 ng/mL (<0.05-4.0)
== END 2022-01-11 12:24 | disposition home or self-care (01) ==
LOC: HO.10HDL 12:23
PROVIDERS: Visit Provider Internal Medicine
DX: Z12.5 Encounter for screening for malignant neoplasm of prostate (principal); R60.0 Localized edema; J44.9 Chronic obstructive pulmonary disease, unspecified; N18.9 Chronic kidney disease, unspecified; J84.10 Pulmonary fibrosis, unspecified
CPT/HCPCS: 36415; 80053; 82465; 84153; 85025

== ENCOUNTER → 2022-03-03 13:44 | Outpatient (BNVA) | payer MEDICARE, OTHER, SELFPAY | PROVIDERS: PCP Internal Medicine; Visit Provider Hospitalist | DX: I27.20 Pulmonary hypertension, unspecified (principal); J44.1 Chronic obstructive pulmonary disease with (acute) exacerbation; J84.10 Pulmonary fibrosis, unspecified; J96.11 Chronic respiratory failure with hypoxia; J96.12 Chronic respiratory failure with hypercapnia; J96.21 Acute and chronic respiratory failure with hypoxia; M79.89 Other specified soft tissue disorders; Z99.81 Dependence on supplemental oxygen | CPT/HCPCS: 99212 ==